=== PATIENT | female | born 1950 | race Caucasian/White ===

== ENCOUNTER 2018-04-28 12:17 | Inpatient (IN) | payer OTHER ==
--- NOTE | 2018-04-28 12:26 | PDOC ---
History of Present Illness - General Chief Complaint: Injury Stated Complaint: LEFT LEG INJURY Time Seen by Provider: 04/28/18 12:23 History Source: Patient Exam Limitations: No Limitations - History of Present Illness Initial Comments: 04/28/18 12:30 Ms Sullivan is a 68 yo F who presents to the ER with a complaint of fall with leg injury She has a h/o afib currently on coumadin, HTN She accidentally tripped over a wire in her daughters room She fell forward, landing on both knees (L more than Right) No head trauma No LOC Pt was able to get herself up but noted that her left leg was bruising despite applying ice The swelling was significant which prompted her ER visit No preceding chest pain, shortness of breath, palpitations, focal weakness or numbness PAST MEDICAL HISTORY: Hypertension, gout, Afib, h/o Hep C PAST SURGICAL HISTORY: C section FAMILY HISTORY: non contributory SOCIAL HISTORY: pt denies, alcohol, cigarette, and drug use MEDICATIONS: reviewed ALLERGIES: PCN ROS: GENERAL/CONSTITUTIONAL: No fever or chills. No weakness. HEAD, EYES, EARS, NOSE AND THROAT: No change in vision. No ear pain or discharge. No sore throat. CARDIOVASCULAR: No chest pain or shortness of breath. RESPIRATORY: No cough, wheezing, or hemoptysis. GASTROINTESTINAL: No nausea, vomiting, diarrhea or constipation. No rectal bleeding. GENITOURINARY: No dysuria, frequency, or change in urination. MUSCULOSKELETAL: No joint or muscle swelling or pain. No neck or back pain. SKIN: Yes: Left leg and knee Bruising NEUROLOGIC: No headache, vertigo, loss of consciousness, or loss of sensation. PSYCHIATRIC: No depression or anxiety. ENDOCRINE: No increased thirst. No abnormal weight change. HEMATOLOGIC/LYMPHATIC: No anemia, easy bleeding, or history of blood clots. ALLERGIC/IMMUNOLOGIC: No hives or skin allergy. No latex allergy. EXAM: GENERAL: The patient is awake, alert, and fully oriented, in no acute distress. HEAD: Normal with no signs of trauma. EYES: Pupils equal, round and reactive to light, extraocular movements intact, sclera anicteric, conjunctiva clear. ENT: Ears normal, nares patent, oropharynx clear without exudates. Moist mucous membranes. NECK: Normal range of motion, supple LUNGS: Breath sounds equal, clear to auscultation bilaterally. No wheezes, and no crackles. HEART: Regular rate and rhythm, normal S1 and S2 ABDOMEN: Soft, nontender, normoactive bowel sounds. No guarding, no rebound. No masses. EXTREMITIES: Normal range of motion, no edema. (+) bruising NEUROLOGICAL: Cranial nerves II through XII grossly intact. Normal speech, normal gait. PSYCH: Normal mood, normal affect. SKIN: Left lateral leg bruised and swollen, non tender area feels firm to palpation DP 2+ 04/28/18 12:46 04/28/18 14:05 Past History - Past Medical History Allergies/Adverse Reactions: Allergies Allergy/AdvReac Type Severity Reaction Status Date / Time Penicillins Allergy Verified 04/28/18 12:30 azithromycin AdvReac Intermediate Diarrhea Verified 04/28/18 12:30 Home Medications: Ambulatory Orders Calcium 250Mg/Vit-D 125 Units [Oscal 250 mg+D] 2 each PO DAILY 06/18/12 Allopurinol [Zyloprim -] 100 mg PO DAILY 04/28/18 Metoprolol Succinate [Toprol Xl] 100 mg PO HS 04/28/18 Rivaroxaban [Xarelto -] 20 mg PO DAILY 04/28/18 HTN: Yes - Suicide/Smoking/Psychosocial Hx Smoking Status: No Smoking History: Never smoked Number of Cigarettes Smoked Daily: 0 ED Treatment Course - LABORATORY CBC & Chemistry Diagram: 04/28/18 13:30 04/28/18 13:45 Medical Decision Making - Medical Decision Making 04/28/18 12:59 Pt presents with fall from standing No head trauma No preceding chest pain Left leg bruised and swollen Will do: Labs, xray CT head (Given xeralto) EKG Will call pt online banking specialist Will discuss with pt daughter as well Re Assess 04/28/18 14:05 EKG - Afib rate of 70 bpm, axis nml, inervals nml, no st elevation or depression , t waves upright 04/28/18 14:41 Laboratory Tests 04/28/18 04/28/18 04/28/18 13:30 13:45 13:45 WBC 8.1 Hgb 13.6 Hct 40.5 D Plt Count 213 INR 1.46 H Sodium 140 Potassium 4.7 Chloride 105 Carbon Dioxide 27 BUN 19 H Creatinine 1.2 Random Glucose 122 H Creatine Kinase 74 Troponin I 04/28/18 13:45 WBC Hgb Hct Plt Count INR Sodium Potassium Chloride Carbon Dioxide BUN Creatinine Random Glucose Creatine Kinase Troponin I < 0.03 04/28/18 17:[address] Chapin Call placed to Dr Kasper - will hold xeralto Will place on observation *DC/Admit/Observation/Transfer Diagnosis at time of Disposition: Hematoma - Discharge Dispostion Condition at time of disposition: Stable Decision to Admit order: Yes - Referrals Referrals: Radha Chapin MD [Primary Care Provider] - - Patient Instructions - Post Discharge Activity
[2018-04-28 14:06] LABS: BASO % 0.7 % (0-2.0); EOS % 0.7 % (0-4.5); HEMATOCRIT 40.5 % (32.4-45.2); HEMOGLOBIN 13.6 GM/dl (10.7-15.3); LYMPH % 10.5 % (8-40); MCH 31.9 pg (25.7-33.7); MCHC 33.6 g/dl (32.0-36.0); MEAN PLT VOLUME 7.3 fl (7.5-11.1); MONO % 8.5 % (3.8-10.2); NEUT % 79.6 % (42.8-82.8); PLATELET COUNT 213 K/MM3 (134-434); RBC 4.26 M/mm3 (3.60-5.2); RDW 13.6 % (11.6-15.6); WHITE BLOOD COUNT 8.1 K/mm3 (4.0-10.8)
[2018-04-28 14:24] LABS: INR 1.46 (0.82-1.09); PROTHROMBIN TIME (PATIENT) 16.2 SEC (10.2-13.0)
[2018-04-28 14:28] LABS: ALBUMIN 3.4 g/dl (3.4-5.0); ALK PHOS 66 U/L (45-117); ANION GAP 8 MMOL/L (8-16); BILIRUBIN,TOTAL 0.6 mg/dl (0.2-1); BLOOD UREA NITROGEN 19 mg/dl (7-18); CALCIUM 8.8 mg/dl (8.5-10); CHLORIDE 105 mmol/L (98-107); CO2 27 mmol/L (21-32); CREATININE 1.2 mg/dl (0.55-1.3); GLUCOSE,RANDOM 122 mg/dl (74-106); POTASSIUM 4.7 mmol/L (3.5-5.1); SGOT/AST 19 U/L (15-37); SGPT/ALT 13 U/L (13-61); SODIUM 140 mmol/L (136-145); TOT PROT 5.8 g/dl (6.4-8.2)
[2018-04-29] MEDS: amLODIPine BESYLATE 10 MG TABLET (FP) PO SCH (10:00)
[2018-04-29] MEDS: ALLOPURINOL 100 MG TABLET (FP) PO SCH (10:50)
[2018-04-29] MEDS: ACETAMINOPHEN 500 MG TABLET (FP) PO PRN (10:50)
[2018-04-29 17:14] LABS: INR 1.26 (0.82-1.09)
[2018-04-29 17:16] LABS: HEMATOCRIT 29.2 % (32.4-45.2); HEMOGLOBIN 9.9 GM/dl (10.7-15.3); MCH 32.1 pg (25.7-33.7); MEAN CELL VOLUME 94.4 fl (80-96); MEAN PLT VOLUME 7.6 fl (7.5-11.1); PLATELET COUNT 167 K/MM3 (134-434); RBC 3.09 M/mm3 (3.60-5.2); RDW 13.5 % (11.6-15.6); WHITE BLOOD COUNT 9.1 K/mm3 (4.0-10.8)
[2018-04-29 17:17] LABS: ALBUMIN 3.2 g/dl (3.4-5.0); ALK PHOS 64 U/L (45-117); ANION GAP 6 MMOL/L (8-16); BILIRUBIN,TOTAL 0.5 mg/dl (0.2-1); BLOOD UREA NITROGEN 16 mg/dl (7-18); CALCIUM 8.6 mg/dl (8.5-10); CHLORIDE 105 mmol/L (98-107); CO2 29 mmol/L (21-32); CREATININE 1.2 mg/dl (0.55-1.3); GLUCOSE,RANDOM 120 mg/dl (74-106); POTASSIUM 3.8 mmol/L (3.5-5.1); SGOT/AST 20 U/L (15-37); SGPT/ALT 12 U/L (13-61); SODIUM 140 mmol/L (136-145); TOT PROT 5.4 g/dl (6.4-8.2)
[2018-04-29] MEDS: CEFTRIAXONE 1 GM in DEXTROSE 5%-WATER - 50 ML IVPB SCH (21:55)
--- NOTE | 2018-04-29 22:01 | HP ---
Admitting History and Physical - Admission Chief Complaint: fall and hematoma of the left lower extremity while on Xarelto History of Present Illness: 68 yo obese female with PMH of Atrial Fibrillation, fell at home after getting entangled in a purse string. The patient fell on her knees and did not hit her head. History Source: Patient - Past Medical History Cardiovascular: Yes: AFIB, HTN ...LMP Comment: 68 YEARS OLD - Smoking History Smoking history: Never smoked Have you smoked in the past 12 months: No Aproximately how many cigarettes per day: 0 - Alcohol/Substance Use Hx Alcohol Use: No Home Medications - Allergies Allergies/Adverse Reactions: Allergies Allergy/AdvReac Type Severity Reaction Status Date / Time Penicillins Allergy Verified 04/28/18 12:30 azithromycin AdvReac Intermediate Diarrhea Verified 04/28/18 12:30 - Home Medications Home Medications: Ambulatory Orders Calcium 250Mg/Vit-D 125 Units [Oscal 250 mg+D] 2 each PO DAILY 06/18/12 Allopurinol [Zyloprim -] 100 mg PO DAILY 04/28/18 Metoprolol Succinate [Toprol Xl] 100 mg PO HS 04/28/18 Rivaroxaban [Xarelto -] 20 mg PO DAILY 04/28/18 Review of Systems - Review of Systems Constitutional: reports: No Symptoms Eyes: reports: No Symptoms HENT: reports: No Symptoms Neck: reports: No Symptoms Cardiovascular: reports: Edema (chronic edema of the lower etxremities) Respiratory: reports: No Symptoms Gastrointestinal: reports: No Symptoms Genitourinary: reports: No Symptoms Musculoskeletal: reports: Extremity Pain (pain of jeremías left knee and extensive hematoma of the left lower extremity) Physical Examination Vital Signs: Vital Signs Temperature 98.8 F 04/29/18 18:00 Pulse Rate 74 04/29/18 18:00 Respiratory Rate 17 04/29/18 18:00 Blood Pressure 99/54 L 04/29/18 18:00 O2 Sat by Pulse Oximetry (%) 95 04/29/18 18:00 Constitutional: Yes: No Distress, Calm Eyes: Yes: Conjunctiva Clear, EOM Intact HENT: Yes: Atraumatic, Normocephalic Neck: Yes: Supple, Trachea Midline Cardiovascular: Yes: Regular Rate and Rhythm Respiratory: Yes: Regular, CTA Bilaterally Gastrointestinal: Yes: Normal Bowel Sounds, Soft, Abdomen, Obese, Other (could not evaluate internal organs due to obesity) Extremities: Yes: Other (edema and hematoma of the left calf, blister of jeremías left calf present). No: Calf Tenderness Edema: Yes Peripheral Pulses WNL: Yes Neurological: Yes: Alert, Oriented Psychiatric: Yes: Alert, Oriented Labs: CBC, BMP 04/29/18 16:45 04/29/18 16:45 Imaging - Results X-ray: Other (tibia and fibula X ray with no fracture) Problem List - Problems (1) Fall on same level as cause of accidental injury Assessment/Plan: monitor for compartment syndrome, check CPK and CK MB serially keep left lower extremity elevated ice every 45 minutes for 10 minutes each time while awake Code(s): W18.30XA - FALL ON SAME LEVEL, UNSPECIFIED, INITIAL ENCOUNTER (2) Hematoma Assessment/Plan: extensive left lower extremity hematoma, will monitor for expansion and compartment syndrome development I will hold Xarelto while monitoring CBC Code(s): T14.8XXA - OTHER INJURY OF UNSPECIFIED BODY REGION, INITIAL ENCOUNTER (3) Atrial fibrillation Assessment/Plan: Toprol XL Xarelto on hold monior CBC for significant drop in hematocrit Code(s): I48.91 - UNSPECIFIED ATRIAL FIBRILLATION (4) HTN (hypertension) Assessment/Plan: Continue Toprol and Norvasc Code(s): I10 - ESSENTIAL (PRIMARY) HYPERTENSION
--- NOTE | 2018-04-29 22:04 | PN ---
Progress Note, Physician Chief Complaint: s/p fall and large hematoma of the left calf History of Present Illness: 68 yo female with PMH of Atrial Fibrillation on chronic anticoagulation,with Xarelto, fell in her house, after getting entangled in the strings of a purse. The patient did not hit her head and did not lose consciousness. During her fall she injured her left lower extremity developing an extensive hematoma which affected her left knees,left popliteal area, and left calf . In interim she developed celluilits of the left calf and a 10 cm/10 cm blister filled with serous fluid. Anticoagulation with Xarelto is on hold and the hematoma is stable and the edema of the lower extremity is subsiding. - Current Medication List Current Medications: Active Medications Acetaminophen (Tylenol -) 500 mg PO Q6H PRN PRN Reason: PAIN LEVEL 5-10 Last Admin: 04/29/18 10:50 Dose: 500 mg Allopurinol (Zyloprim -) 100 mg PO DAILY [facility] Last Admin: 04/29/18 10:50 Dose: 100 mg Amlodipine Besylate (Norvasc -) 10 mg PO DAILY [facility] Last Admin: 04/29/18 10:00 Dose: 10 mg Ceftriaxone Sodium 1 gm/ (Dextrose) 50 mls @ 100 mls/hr IVPB DAILY [facility] Last Admin: 04/29/18 21:55 Dose: 100 mls/hr Metoprolol Succinate (Toprol Xl -) 100 mg PO HS [facility] Last Admin: 04/29/18 21:54 Dose: 100 mg - Objective Vital Signs: Vital Signs Temperature 98.8 F 04/29/18 18:00 Pulse Rate 74 04/29/18 18:00 Respiratory Rate 17 04/29/18 18:00 Blood Pressure 99/54 L 04/29/18 18:00 O2 Sat by Pulse Oximetry (%) 95 04/29/18 18:00 Constitutional: Yes: No Distress, Calm Eyes: Yes: Conjunctiva Clear, EOM Intact HENT: Yes: Atraumatic, Normocephalic Neck: Yes: Supple, Trachea Midline Cardiovascular: Yes: Regular Rate and Rhythm, S1, S2 Gastrointestinal: Yes: Normal Bowel Sounds, Soft, Abdomen, Obese. No: Hepatomegaly, Splenomegaly Extremities: No: Calf Tenderness Edema: Yes Peripheral Pulses WNL: Yes Integumentary: Yes: Other (bullous lesion of jeremías left calf, filel with serous fluid) Neurological: Yes: Alert, Oriented Psychiatric: Yes: Alert, Oriented Labs: CBC, BMP 04/29/18 16:45 04/29/18 16:45 INR, PTT INR 1.26 (0.82-1.09) H 04/29/18 16:45 Problem List - Problems (1) Hematoma Assessment/Plan: Xarelto on hold serial CBC Code(s): T14.8XXA - OTHER INJURY OF UNSPECIFIED BODY REGION, INITIAL ENCOUNTER (2) Anemia Assessment/Plan: monitor CBC Code(s): D64.9 - ANEMIA, UNSPECIFIED Qualifiers: Other causes of anemia: acute posthemorrhagic (3) Fall on same level as cause of accidental injury Assessment/Plan: monitor for compartment syndrome keep left lower extremity elevated ice every 45 minutes for 10 minutes each time while awake Code(s): W18.30XA - FALL ON SAME LEVEL, UNSPECIFIED, INITIAL ENCOUNTER (4) Atrial fibrillation Assessment/Plan: Toprol XL Xarelto on hold, the patient has an extensive hematoma of the left lower extremity associated with a significant drop in hematocrit due to the extent of the hematoma, the ER md, myself and the [employer] buyer liaison, Dr. Petit, we all agreed to hold anticoagulation until bleeding is stable and no compartment syndrome develops continue monitoring the CBC Code(s): I48.91 - UNSPECIFIED ATRIAL FIBRILLATION (5) HTN (hypertension) Assessment/Plan: Continue Toprol and Norvasc Code(s): I10 - ESSENTIAL (PRIMARY) HYPERTENSION (6) Cellulitis of calf Assessment/Plan: start Ceftriaxone Code(s): L03.119 - CELLULITIS OF UNSPECIFIED PART OF LIMB (7) Anemia Assessment/Plan: there is a significant drop in the patient's H/H, with serious concerns for development of compartment syndrome in this massive lower extremity hematoma will monitor CBC, CPK and CKMB, and hold Xarelto for now Code(s): D64.9 - ANEMIA, UNSPECIFIED (8) Acute blood loss anemia Assessment/Plan: as above Code(s): D62 - ACUTE POSTHEMORRHAGIC ANEMIA
[2018-04-30 09:03] LABS: BASO % 0.4 % (0-2.0); EOS % 1.5 % (0-4.5); HEMOGLOBIN 11.3 GM/dl (10.7-15.3); LYMPH % 15.4 % (8-40); MCH 30.5 pg (25.7-33.7); MCHC 32.2 g/dl (32.0-36.0); MEAN CELL VOLUME 94.6 fl (80-96); MEAN PLT VOLUME 7.9 fl (7.5-11.1); MONO % 9.2 % (3.8-10.2); NEUT % 73.5 % (42.8-82.8); PLATELET COUNT 201 K/MM3 (134-434); RDW 13.5 % (11.6-15.6); WHITE BLOOD COUNT 10.5 K/mm3 (4.0-10.8)
[2018-04-30] MEDS ORDERED: PT OWN MED DRAWER 7, Y5N ONE (09:26)
[2018-04-30] MEDS: CEFTRIAXONE 1 GM in DEXTROSE 5%-WATER - 50 ML IVPB SCH (10:00)
[2018-04-30] MEDS: ALLOPURINOL 100 MG TABLET (FP) PO SCH (10:00)
[2018-04-30] MEDS: amLODIPine BESYLATE 10 MG TABLET (FP) PO SCH (10:00)
--- NOTE | 2018-04-30 11:57 | EKG ---
Test Reason : Blood Pressure : / mmHG Vent. Rate : 070 BPM Atrial Rate : 075 BPM P-R Int : 000 ms QRS Dur : 094 ms QT Int : 426 ms P-R-T Axes : 000 002 014 degrees QTc Int : 460 ms ATRIAL FIBRILLATION NONSPECIFIC ST ABNORMALITY ABNORMAL ECG NO PREVIOUS ECGS AVAILABLE Confirmed by ROXANNE PORRAS MD ([id number]) on 04/30/2018 11:57:14 AM Referred By: ALESSANDRO Confirmed By:ROXANNE PORRAS MD
[2018-04-30] MEDS: ACETAMINOPHEN 500 MG TABLET (FP) PO PRN (13:00)
--- NOTE | 2018-04-30 15:12 | PN ---
Progress Note, Physician Chief Complaint: s/p fall and hematoma of the left calf - Current Medication List Current Medications: Active Medications Acetaminophen (Tylenol -) 500 mg PO Q6H PRN PRN Reason: PAIN LEVEL 5-10 Last Admin: 04/29/18 10:50 Dose: 500 mg Allopurinol (Zyloprim -) 100 mg PO DAILY [facility] Last Admin: 04/30/18 10:00 Dose: 100 mg Amlodipine Besylate (Norvasc -) 10 mg PO DAILY [facility] Last Admin: 04/30/18 10:00 Dose: 10 mg Ceftriaxone Sodium 1 gm/ (Dextrose) 50 mls @ 100 mls/hr IVPB DAILY [facility] Last Admin: 04/30/18 10:00 Dose: 100 mls/hr Metoprolol Succinate (Toprol Xl -) 100 mg PO HS [facility] Last Admin: 04/29/18 21:54 Dose: 100 mg - Objective Vital Signs: Vital Signs Temperature 98.7 F 04/30/18 14:04 Pulse Rate 75 04/30/18 14:04 Respiratory Rate 18 04/30/18 14:04 Blood Pressure 110/66 04/30/18 14:04 O2 Sat by Pulse Oximetry (%) 96 04/30/18 14:04 Constitutional: Yes: No Distress, Calm Eyes: Yes: Conjunctiva Clear, EOM Intact HENT: Yes: Atraumatic, Normocephalic Neck: Yes: Supple, Trachea Midline Cardiovascular: Yes: Regular Rate and Rhythm Respiratory: Yes: Regular, CTA Bilaterally Gastrointestinal: Yes: Normal Bowel Sounds, Soft, Abdomen, Obese Musculoskeletal: Yes: Other (massive hematoma of the left lower extremity, calf and knee with limited mobility of the knee and pain) Labs: CBC, BMP 04/30/18 06:00 04/29/18 16:45 INR, PTT INR 1.26 (0.82-1.09) H 04/29/18 16:45 Problem List - Problems (1) Hematoma Code(s): T14.8XXA - OTHER INJURY OF UNSPECIFIED BODY REGION, INITIAL ENCOUNTER (2) Anemia Code(s): D64.9 - ANEMIA, UNSPECIFIED Qualifiers: Other causes of anemia: acute posthemorrhagic (3) Fall on same level as cause of accidental injury Code(s): W18.30XA - FALL ON SAME LEVEL, UNSPECIFIED, INITIAL ENCOUNTER (4) Atrial fibrillation Code(s): I48.91 - UNSPECIFIED ATRIAL FIBRILLATION (5) HTN (hypertension) Code(s): I10 - ESSENTIAL (PRIMARY) HYPERTENSION (6) Cellulitis of calf Code(s): L03.119 - CELLULITIS OF UNSPECIFIED PART OF LIMB (7) Anemia Code(s): D64.9 - ANEMIA, UNSPECIFIED (8) Anemia Code(s): D64.9 - ANEMIA, UNSPECIFIED (9) Acute blood loss anemia Code(s): D62 - ACUTE POSTHEMORRHAGIC ANEMIA
[2018-05-01 08:42] LABS: BASO % 0.3 % (0-2.0); EOS % 1.3 % (0-4.5); HEMATOCRIT 34.7 % (32.4-45.2); HEMOGLOBIN 11.4 GM/dl (10.7-15.3); LYMPH % 12.2 % (8-40); MCH 31.3 pg (25.7-33.7); MCHC 32.9 g/dl (32.0-36.0); MEAN CELL VOLUME 95.1 fl (80-96); MEAN PLT VOLUME 7.8 fl (7.5-11.1); MONO % 7.1 % (3.8-10.2); NEUT % 79.1 % (42.8-82.8); PLATELET COUNT 198 K/MM3 (134-434); RBC 3.65 M/mm3 (3.60-5.2); RDW 13.4 % (11.6-15.6); WHITE BLOOD COUNT 11.7 K/mm3 (4.0-10.8)
[2018-05-01 08:54] LABS: ALBUMIN 3.1 g/dl (3.4-5.0); ALK PHOS 58 U/L (45-117); ANION GAP 9 MMOL/L (8-16); BILIRUBIN,TOTAL 0.7 mg/dl (0.2-1); BLOOD UREA NITROGEN 18 mg/dl (7-18); CALCIUM 8.5 mg/dl (8.5-10); CHLORIDE 104 mmol/L (98-107); CO2 27 mmol/L (21-32); CREATININE 1.1 mg/dl (0.55-1.3); GLUCOSE,RANDOM 96 mg/dl (74-106); POTASSIUM 3.9 mmol/L (3.5-5.1); SGOT/AST 16 U/L (15-37); SGPT/ALT 12 U/L (13-61); SODIUM 140 mmol/L (136-145); TOT PROT 5.3 g/dl (6.4-8.2)
[2018-05-01] MEDS: CEFTRIAXONE 1 G/50 ML PREMIX 50 ML IVPB SCH (09:24)
[2018-05-01] MEDS: amLODIPine BESYLATE 10 MG TABLET (FP) PO SCH (09:24)
[2018-05-01] MEDS: ALLOPURINOL 100 MG TABLET (FP) PO SCH (09:24)
[2018-05-01] MEDS ORDERED: RIVAROXABAN 20 MG TABLET PO SCH (18:00)
--- NOTE | 2018-05-01 23:57 | PN ---
Progress Note, Physician Chief Complaint: s/p fall and hematoma of the left calf History of Present Illness: 68 yo female with PMH of Atrial Fibrillation on chronic anticoagulation,with Xarelto, fell in her house, after getting entangled in the strings of a purse. The patient did not hit her head and did not lose consciousness. During her fall she injured her left lower extremity developing an extensive hematoma which affected her left knees,left popliteal area, and left calf . In interim she developed celluilits of the left calf and a 10 cm/10 cm blister filled with serous fluid. The blister was drained yesterday by me and 20 cc of serous fluid were obtained and sent for cultures. The patient receives Ceftriaxone for the treatment of her cellulitis. Anticoagulation with Xarelto was restarted since the hematoma is stable and not expanding and the edema of the lower extremity is subsiding. - Current Medication List Current Medications: Active Medications Acetaminophen (Tylenol -) 500 mg PO Q6H PRN PRN Reason: PAIN LEVEL 5-10 Last Admin: 04/30/18 13:00 Dose: 500 mg Allopurinol (Zyloprim -) 100 mg PO DAILY [facility] Last Admin: 05/01/18 09:24 Dose: 100 mg Amlodipine Besylate (Norvasc -) 10 mg PO DAILY [facility] Last Admin: 05/01/18 09:24 Dose: 10 mg Ceftriaxone Sodium (Ceftriaxone 1 Gm-D5w Bag) 50 mls @ 100 mls/hr IVPB DAILY [facility] Last Admin: 05/01/18 09:24 Dose: 100 mls/hr Metoprolol Succinate (Toprol Xl -) 100 mg PO HS [facility] Last Admin: 05/01/18 21:21 Dose: 100 mg Rivaroxaban (Xarelto -) 20 mg PO DAILY@1800 [facility] Last Admin: 05/01/18 17:29 Dose: 20 mg - Objective Vital Signs: Vital Signs Temperature 98.5 F 05/01/18 22:38 Pulse Rate 83 05/01/18 22:38 Respiratory Rate 18 05/01/18 22:38 Blood Pressure 115/55 L 05/01/18 22:38 O2 Sat by Pulse Oximetry (%) 97 05/01/18 22:38 Constitutional: Yes: No Distress, Calm Eyes: Yes: Conjunctiva Clear, EOM Intact HENT: Yes: Atraumatic, Normocephalic Neck: Yes: Supple, Trachea Midline Cardiovascular: Yes: Regular Rate and Rhythm Respiratory: Yes: Regular, CTA Bilaterally Gastrointestinal: Yes: Normal Bowel Sounds, Soft, Abdomen, Obese. No: Hepatomegaly, Splenomegaly ...Rectal Exam: Yes: Deferred Musculoskeletal: Yes: Joint Stiffness (in the left knee due to hematoma.) Extremities: No: Calf Tenderness Edema: Yes Edema: LLE: 2+, RLE: 1+ Peripheral Pulses WNL: Yes Integumentary: Yes: Rash (redness extension of the left anterior hernandez is unchanged), Skin Tear (open wound of the left anterior hernandez present, not examined toda, jeremías wound is covered by Xeroform) Neurological: Yes: Alert, Oriented Psychiatric: Yes: Alert, Oriented Labs: CBC, BMP 05/01/18 07:10 05/01/18 07:10 INR, PTT INR 1.26 (0.82-1.09) H 04/29/18 16:45 Problem List - Problems (1) Hematoma Assessment/Plan: extensive left lower extremity hematoma, was monitored for expansion and compartment syndrome development the hematoma is stable and I will restart Xarelto while monitoring CBC Code(s): T14.8XXA - OTHER INJURY OF UNSPECIFIED BODY REGION, INITIAL ENCOUNTER (2) Cellulitis of calf Assessment/Plan: on Ceftriaxone and no improving the antibiotic choices are limited due to PCN allergy Code(s): L03.119 - CELLULITIS OF UNSPECIFIED PART OF LIMB (3) Open wound of left lower leg Assessment/Plan: the patient developed a 10cm/10 cm of the left calf which was drained fluid was sent for culture and analysis wound care: clean with NS, cover with Xeroform QOD Code(s): S81.802A - UNSPECIFIED OPEN WOUND, LEFT LOWER LEG, INITIAL ENCOUNTER (4) Fall on same level as cause of accidental injury Assessment/Plan: monitor for compartment syndrome keep left lower extremity elevated ice every 45 minutes for 10 minutes each time while awake Code(s): W18.30XA - FALL ON SAME LEVEL, UNSPECIFIED, INITIAL ENCOUNTER (5) Atrial fibrillation Assessment/Plan: Toprol XL restart Xarelto the extensive hematoma of the left lower extremity seems to be stable despite the significant drop in hematocrit I will continue monitoring the CBC Code(s): I48.91 - UNSPECIFIED ATRIAL FIBRILLATION (6) Acute blood loss anemia Code(s): D62 - ACUTE POSTHEMORRHAGIC ANEMIA (7) HTN (hypertension) Assessment/Plan: Continue Toprol and Norvasc Code(s): I10 - ESSENTIAL (PRIMARY) HYPERTENSION Assessment/Plan 68 yo obese female with limited mobility, s/p fall and massive hematoma of the left of lower extremity while on anticoagulation. The patient was admitted to monitor for compartment syndrome development. Her hematoma and CBC are stable now but she developed a 10/10cm open wound of the left calf associated with cellulitis. IV Ceftriaxone was started with no improvement.
[2018-05-02 08:20] LABS: BASO % 1.6 % (0-2.0); EOS % 1.6 % (0-4.5); HEMATOCRIT 33.4 % (32.4-45.2); LYMPH % 16.1 % (8-40); MCH 31.5 pg (25.7-33.7); MCHC 33.1 g/dl (32.0-36.0); MEAN CELL VOLUME 95.2 fl (80-96); MEAN PLT VOLUME 7.3 fl (7.5-11.1); MONO % 10.5 % (3.8-10.2); NEUT % 70.2 % (42.8-82.8); PLATELET COUNT 215 K/MM3 (134-434); RBC 3.51 M/mm3 (3.60-5.2); RDW 13.5 % (11.6-15.6); WHITE BLOOD COUNT 12.3 K/mm3 (4.0-10.8)
[2018-05-02] MEDS: CEFTRIAXONE 1 G/50 ML PREMIX 50 ML IVPB SCH (09:25)
[2018-05-02] MEDS: ALLOPURINOL 100 MG TABLET (FP) PO SCH (09:31)
[2018-05-02] MEDS: amLODIPine BESYLATE 10 MG TABLET (FP) PO SCH (09:32)
--- NOTE | 2018-05-02 10:13 | PN ---
Progress Note (short form) - Note Progress Note: ID CONSULT DICTATED CELLULITIS L LE HEMATOMA L LE S/P FALL PCN ALLERGY ADD VANCOMYCIN ELEVATION/ ANALGESICS
--- NOTE | 2018-05-02 11:24 | CONS ---
DATE OF CONSULTATION: DATE OF DICTATION: 05/02/2018 The patient is a 68-year-old female evaluated for cellulitis of the left lower extremity. She had fallen at home, sustaining trauma to her knees bilaterally. She was noted to have extensive ecchymosis of the left lower extremity as well as anemia. She presented to the emergency room on April 28, 2018, where she was evaluated. She was admitted to the hospital for hematoma and cellulitis of the left lower extremity, possible compartment syndrome. X-rays were performed and were negative for fracture or dislocation. She was empirically treated with ceftriaxone. Despite the antibiotic therapy, she had persistent erythema of the left lower extremity. Patient has a history of a penicillin allergy. She reports having an allergy in childhood, the nature of which she was uncertain of. An aspiration was performed of the left lower extremity and fluid sent for culture. PAST MEDICAL HISTORY: Positive for atrial fibrillation, hypertension, gouty arthritis, history of hepatitis C. PAST SURGICAL HISTORY: Status post cesarian section. ALLERGIES: PENICILLIN and AZITHROMYCIN. SOCIAL HISTORY: Patient lives at home in the community. She is a nonsmoker, nondrinker. REVIEW OF SYSTEMS: Neurologic: No loss of consciousness, seizure activity, focal weakness. Cardiac: Negative chest pain or palpitations. Respiratory: Negative cough or sputum production. Gastrointestinal: Negative vomiting or diarrhea. Genitourinary: Negative for urinary tract infection. LABORATORY DATA: White count 12.3, hematocrit 33.4, platelet count 215. Creatinine 1.1, INR 1.26. Wound culture negative. PHYSICAL EXAMINATION: General: She is awake and alert. She is not acutely toxic appearing, morbidly obese. Vital Signs: Temperature 98.6, blood pressure 125/61, pulse 72, regular. Respirations 18 per minute. HEENT: Sclerae are anicteric. Cardiovascular: Heart sounds S1, S2. Lungs: Clear. Abdomen: Obese, soft, nontender. Extremities: There is swelling of the left lower extremity from below the knee to the foot. There is a large area of ecchymosis present in the pretibial area extending to the calf area and distal posterior thigh. There is an area of erythema over the pretibial area approximately 8 x 20 cm. It is warm to touch. There is no fluctuance or crepitus. No lymphangitic streaking. IMPRESSION: 1. Cellulitis, left lower extremity. 2. Hematoma, left lower extremity, secondary to fall. 3. Penicillin allergy. Await culture results. Continue ceftriaxone. Will add vancomycin 1250 mg IV piggyback every 12 hours. Elevation, analgesics. Will follow. Thank you for the kind referral. RADHA ANDUJAR M.D. ALEE/[id number]
[2018-05-02] MEDS ORDERED: PT OWN MED DRAWER 7, Y5N ONE ×2 (11:48→22:07)
[2018-05-02] MEDS: VANCOMYCIN 1,250 MG in DEXTROSE 5%-WATER - 250 ML IVPB SCH ×2 (12:00→22:23)
--- NOTE | 2018-05-02 16:20 | PN ---
Progress Note, Physician Chief Complaint: s/p fall and hematoma of the left calf, increased redness , and increased volume of the hematoma, suspect hematoma liquification History of Present Illness: 68 yo female with PMH of Atrial Fibrillation on chronic anticoagulation,with Xarelto, fell in her house, after getting entangled in the strings of a purse. The patient did not hit her head and did not lose consciousness. During her fall she injured her left lower extremity developing an extensive hematoma which affected her left knees,left popliteal area, and left calf . In interim she developed celluilits of the left calf and a 10 cm/10 cm blister filled with serous fluid. Xarelto was srted yesterday but today the hematoma seems to have enlarged in size - Current Medication List Current Medications: Active Medications Acetaminophen (Tylenol -) 500 mg PO Q6H PRN PRN Reason: PAIN LEVEL 5-10 Last Admin: 04/30/18 13:00 Dose: 500 mg Allopurinol (Zyloprim -) 100 mg PO DAILY [facility] Last Admin: 05/02/18 09:31 Dose: 100 mg Amlodipine Besylate (Norvasc -) 10 mg PO DAILY [facility] Last Admin: 05/02/18 09:32 Dose: 10 mg Ceftriaxone Sodium (Ceftriaxone 1 Gm-D5w Bag) 50 mls @ 100 mls/hr IVPB DAILY [facility] Last Admin: 05/02/18 09:25 Dose: 100 mls/hr Vancomycin HCl 1,250 mg/ (Dextrose) 250 mls @ 166.667 mls/hr IVPB Q12H [facility]; Protocol Last Admin: 05/02/18 12:00 Dose: 166.667 mls/hr Metoprolol Succinate (Toprol Xl -) 100 mg PO HS [facility] Last Admin: 05/01/18 21:21 Dose: 100 mg Rivaroxaban (Xarelto -) 20 mg PO DAILY@1800 [facility] Last Admin: 05/01/18 17:29 Dose: 20 mg - Objective Vital Signs: Vital Signs Temperature 98.7 F 05/02/18 14:34 Pulse Rate 82 05/02/18 14:34 Respiratory Rate 18 05/02/18 14:34 Blood Pressure 109/66 05/02/18 14:34 O2 Sat by Pulse Oximetry (%) 98 05/02/18 14:34 Constitutional: Yes: No Distress, Calm Eyes: Yes: Conjunctiva Clear, EOM Intact HENT: Yes: Atraumatic, Normocephalic Neck: Yes: Supple, Trachea Midline Cardiovascular: Yes: Regular Rate and Rhythm Respiratory: Yes: Regular, CTA Bilaterally Gastrointestinal: Yes: Normal Bowel Sounds, Soft, Abdomen, Obese Extremities: Yes: Erythema (of the left calf anterior aspect,). No: Calf Tenderness Edema: Yes Edema: LLE: 2+ Peripheral Pulses WNL: Yes Integumentary: Yes: Rash (osf the left anterior hernandez) Neurological: Yes: Alert, Oriented Psychiatric: Yes: Alert, Oriented Labs: CBC, BMP 05/02/18 08:07 05/01/18 07:10 INR, PTT INR 1.26 (0.82-1.09) H 04/29/18 16:45 - ....Imaging Ultrasound: Other (of the left lower extremity was requested by me:My reading: fluids filled locular image in the calf , loculated hematoma) Problem List - Problems (1) Hematoma Assessment/Plan: Xarelto stopped again today, concerns for reactivation of bleeding serial CBC Code(s): T14.8XXA - OTHER INJURY OF UNSPECIFIED BODY REGION, INITIAL ENCOUNTER (2) Fall on same level as cause of accidental injury Assessment/Plan: monitor for compartment syndrome keep left lower extremity elevated ice every 45 minutes for 10 minutes each time while awake Code(s): W18.30XA - FALL ON SAME LEVEL, UNSPECIFIED, INITIAL ENCOUNTER (3) Atrial fibrillation Assessment/Plan: Toprol XL Xareltowas started yeaster and now placed on hold again, the patient has an extensive hematoma of the left lower extremity consult Cardiology on AC with Xarelto and risks evaluation Code(s): I48.91 - UNSPECIFIED ATRIAL FIBRILLATION (4) HTN (hypertension) Assessment/Plan: Continue Toprol and Norvasc Code(s): I10 - ESSENTIAL (PRIMARY) HYPERTENSION (5) Cellulitis of calf Assessment/Plan: Vancomycin Code(s): L03.119 - CELLULITIS OF UNSPECIFIED PART OF LIMB (6) Acute blood loss anemia Assessment/Plan: as above Code(s): D62 - ACUTE POSTHEMORRHAGIC ANEMIA
--- NOTE | 2018-05-02 18:33 | CON.CARD ---
Consult Consult Specialty:: cardio - History of Present Illness Chief Complaint: s/p fall History of Present Illness: 68 F here s/p mechanical fall (tripped). sustained hematoma to leg with superimposed cellulitis--being treated by ID. has had no falls or near-falls/loss of balance otherwise. denies cp, sob, palpit PMH: obesity afib HTN - Past Medical History Cardio/Vascular: Yes: AFIB, HTN ...LMP Comment: 68 YEARS OLD - Alcohol/Substance Use Hx Alcohol Use: No - Smoking History Smoking history: Never smoked Have you smoked in the past 12 months: No Aproximately how many cigarettes per day: 0 Home Medications - Allergies Allergies/Adverse Reactions: Allergies Allergy/AdvReac Type Severity Reaction Status Date / Time Penicillins Allergy Verified 04/28/18 12:30 azithromycin AdvReac Intermediate Diarrhea Verified 04/28/18 12:30 - Home Medications Home Medications: Ambulatory Orders Calcium 250Mg/Vit-D 125 Units [Oscal 250 mg+D] 2 each PO DAILY 06/18/12 Allopurinol [Zyloprim -] 100 mg PO DAILY 04/28/18 Metoprolol Succinate [Toprol Xl] 100 mg PO HS 04/28/18 Rivaroxaban [Xarelto -] 20 mg PO DAILY 04/28/18 Family Disease History - Family Disease History Family History: Denies (no known cmp) Review of Systems - Review of Systems Constitutional: denies: Chills, Fever Eyes: denies: Eye Pain HENT: denies: Nasal Congestion Neck: denies: Stiffness Cardiovascular: denies: Palpitations Respiratory: denies: Orthopnea, PND Gastrointestinal: denies: Diarrhea, Rectal Bleeding Genitourinary: denies: Burning, Hematuria Musculoskeletal: denies: Muscle Pain Integumentary: denies: Rash Neurological: denies: Numbness, Seizure, Syncope Endocrine: denies: Excessive Sweating Hematology/Lymphatic: denies: Excessive Bleeding Vital Signs: Vital Signs Temperature 98.7 F 05/02/18 14:34 Pulse Rate 82 05/02/18 14:34 Respiratory Rate 18 05/02/18 14:34 Blood Pressure 109/66 05/02/18 14:34 O2 Sat by Pulse Oximetry (%) 98 05/02/18 14:34 Constitutional: Yes: No Distress, Obese Eyes: No: Sclera Icterus HENT: No: Nasal Congestion Neck: No: Decreased ROM Respiratory: Yes: CTA Bilaterally. No: Accessory Muscle Use, Rales, Wheezes Gastrointestinal: Yes: Normal Bowel Sounds. No: Distention, Hepatomegaly, Palpable Mass, Tenderness Cardiovascular: Yes: Pulse Irregular JVD: No Carotid Bruit: No PMI: Non-Displaced Heart Sounds: Yes: S1, S2. No: Gallop Murmur: No: Systolic Murmur, Diastolic Murmur Musculoskeletal: Yes: Other (No kyphosis) Extremities: No: Cool, Cyanosis Edema: Yes Peripheral Pulses: 2+ Left Carotid, 2+ Right Carotid, 2+ Left Doralis Pedis, 2+ Right Dorsalis Pedis Integumentary: No: Jaundice Neurological: Yes: Alert, Oriented (x3) Psychiatric: No: Agitated - Other Data Labs, Other Data: CBC, BMP 05/02/18 08:07 05/01/18 07:10 INR, PTT INR 1.26 (0.82-1.09) H 04/29/18 16:45 Laboratory Tests 04/28/18 04/29/18 04/29/18 13:45 16:45 16:45 WBC Hgb Plt Count INR 1.26 H Sodium Potassium Carbon Dioxide BUN Creatinine AST ALT Troponin I < 0.03 < 0.03 05/01/18 05/02/18 07:10 08:07 WBC 12.3 H Hgb 11.0 Plt Count 215 INR Sodium 140 Potassium 3.9 Carbon Dioxide 27 BUN 18 Creatinine 1.1 AST 16 ALT 12 L Troponin I Assessment/Plan ECG (04/28): afib, normal axis and intervals, NSTWAs persistent Afib: -HR well controlled, continue metoprolol -CHADS VASC 3. on Xarelto 20 qd (note: est GFR on lab report of 44 is based on standardized to normal BSA. using modified CKD-EPI estimated creat clearance with pt's actual BSA, her est clearance is 59 hence this is correct dose) -given concern over hematoma of leg, this may prevent brisk healing of superficial infectious process and/or cause permanent venous insufficiency. rec hold Xarelto for 3-7 days to allow healing of traumatic hematoma of leg HTN: -well controlled -cont home metoprolol, amlodipine cellulitis: -per ID
[2018-05-03 07:59] LABS: BASO % 0.7 % (0-2.0); EOS % 2.3 % (0-4.5); HEMATOCRIT 33.8 % (32.4-45.2); HEMOGLOBIN 11.1 GM/dl (10.7-15.3); LYMPH % 11.6 % (8-40); MCH 31.4 pg (25.7-33.7); MEAN CELL VOLUME 95.3 fl (80-96); MEAN PLT VOLUME 7.6 fl (7.5-11.1); MONO % 10.6 % (3.8-10.2); NEUT % 74.8 % (42.8-82.8); PLATELET COUNT 221 K/MM3 (134-434); RBC 3.55 M/mm3 (3.60-5.2); RDW 13.7 % (11.6-15.6); WHITE BLOOD COUNT 12.1 K/mm3 (4.0-10.8)
[2018-05-03 08:13] LABS: ALBUMIN 2.8 g/dl (3.4-5.0); ALK PHOS 55 U/L (45-117); ANION GAP 8 MMOL/L (8-16); BILIRUBIN,TOTAL 0.9 mg/dl (0.2-1); BLOOD UREA NITROGEN 23 mg/dl (7-18); CALCIUM 8.3 mg/dl (8.5-10); CHLORIDE 105 mmol/L (98-107); CO2 27 mmol/L (21-32); CREATININE 1.2 mg/dl (0.55-1.3); GLUCOSE,RANDOM 107 mg/dl (74-106); POTASSIUM 4.2 mmol/L (3.5-5.1); SGOT/AST 15 U/L (15-37); SGPT/ALT 11 U/L (13-61); SODIUM 140 mmol/L (136-145); TOT PROT 5.1 g/dl (6.4-8.2)
--- NOTE | 2018-05-03 08:41 | PN ---
Progress Note, Physician Chief Complaint: no fever, no pain in the left calf s/p fall and hematoma of the left calf, increased redness , and increased volume of the hematoma, suspect hematoma liquification poor vein access and consequently inability to administer VAncomycin optimally History of Present Illness: 68 yo female with PMH of Atrial Fibrillation on chronic anticoagulation,with Xarelto, fell in her house, after getting entangled in the strings of a purse. The patient did not hit her head and did not lose consciousness. During her fall she injured her left lower extremity developing an extensive hematoma which affected her left knees,left popliteal area, and left calf . In interim she developed celluilits of the left calf and a 10 cm/10 cm blister filled with serous fluid. A soft tissue ultrasound was performed showing loculated hematomea with pockets of blood, approximately 3 cm - Current Medication List Current Medications: Active Medications Acetaminophen (Tylenol -) 500 mg PO Q6H PRN PRN Reason: PAIN LEVEL 5-10 Last Admin: 04/30/18 13:00 Dose: 500 mg Allopurinol (Zyloprim -) 100 mg PO DAILY [facility] [place] Last Admin: 05/02/18 09:31 Dose: 100 mg Amlodipine Besylate (Norvasc -) 10 mg PO DAILY [facility] [place] Last Admin: 05/02/18 09:32 Dose: 10 mg Ceftriaxone Sodium (Ceftriaxone 1 Gm-D5w Bag) 50 mls @ 100 mls/hr IVPB DAILY [facility] [place] Last Admin: 05/02/18 09:25 Dose: 100 mls/hr Vancomycin HCl 1,250 mg/ (Dextrose) 250 mls @ 166.667 mls/hr IVPB Q12H [facility] [place]; Protocol Last Admin: 05/02/18 22:23 Dose: 166.667 mls/hr Metoprolol Succinate (Toprol Xl -) 100 mg PO HS [facility] [place] Last Admin: 05/02/18 21:25 Dose: 100 mg - Objective Vital Signs: Vital Signs Temperature 98.1 F 05/03/18 06:43 Pulse Rate 71 05/03/18 06:43 Respiratory Rate 18 05/03/18 06:43 Blood Pressure 115/66 05/03/18 06:43 O2 Sat by Pulse Oximetry (%) 95 05/03/18 08:11 Constitutional: Yes: No Distress, Calm Eyes: Yes: Conjunctiva Clear, EOM Intact HENT: Yes: Atraumatic, Normocephalic Neck: Yes: Supple, Trachea Midline Cardiovascular: Yes: Regular Rate and Rhythm Respiratory: Yes: Regular, CTA Bilaterally Gastrointestinal: Yes: Normal Bowel Sounds, Soft, Abdomen, Obese Extremities: No: Calf Tenderness Edema: LLE: 2+, RLE: 1+ Peripheral Pulses WNL: Yes Integumentary: Yes: Other (large hematoma of the mid and upper third of the left thigh, tensed fluctuance of the lateral aspect, cellulitic infiltration and bright redness anteriorly ( 30 cm / 12 cm, this area was marked by me with marker) but looks less red then yesterday,thin layer of epithellium covering the drained blister area (15/7 cm) with 3 cc serous drainage collected in the declive area) Neurological: Yes: Alert, Oriented Psychiatric: Yes: Alert, Oriented Labs: CBC, BMP 05/03/18 07:20 05/03/18 07:20 INR, PTT INR 1.26 (0.82-1.09) H 04/29/18 16:45 - ....Imaging Ultrasound: Other (loculated hematoma of the left calf) Problem List - Problems (1) Leukocytosis Assessment/Plan: on VAncomycin, there is no fever, continue monitoring, blood cultures if fever Code(s): D72.829 - ELEVATED WHITE BLOOD CELL COUNT, UNSPECIFIED (2) Hematoma Assessment/Plan: Xarelto stopped again, concerns for reactivation of bleeding serial CBC stable Code(s): T14.8XXA - OTHER INJURY OF UNSPECIFIED BODY REGION, INITIAL ENCOUNTER (3) Fall on same level as cause of accidental injury Assessment/Plan: monitor for compartment syndrome keep left lower extremity elevated ice every 45 minutes for 10 minutes each time while awake Code(s): W18.30XA - FALL ON SAME LEVEL, UNSPECIFIED, INITIAL ENCOUNTER (4) Atrial fibrillation Assessment/Plan: Toprol XL Xarelto was started yesterday and now placed on hold again, the patient has an extensive hematoma of the left lower extremity consult Cardiology on AC with Xarelto and risks evaluation Code(s): I48.91 - UNSPECIFIED ATRIAL FIBRILLATION (5) HTN (hypertension) Assessment/Plan: Continue Toprol and Norvasc Code(s): I10 - ESSENTIAL (PRIMARY) HYPERTENSION (6) Cellulitis of calf Assessment/Plan: Vancomycin iv the patient has poor iv access and the insertion of a PICC line is recommended to insure proper administration of iv antibiotics contacted IR Code(s): L03.119 - CELLULITIS OF UNSPECIFIED PART OF LIMB (7) Acute blood loss anemia Assessment/Plan: as above Code(s): D62 - ACUTE POSTHEMORRHAGIC ANEMIA
--- NOTE | 2018-05-03 09:20 | PN ---
Progress Note, Physician History of Present Illness: NO C/O LEG PAIN AT REST NO FEVER/ CHILLS TOLERATING ANTIBIOTICS - Current Medication List Current Medications: Active Medications Acetaminophen (Tylenol -) 500 mg PO Q6H PRN PRN Reason: PAIN LEVEL 5-10 Last Admin: 04/30/18 13:00 Dose: 500 mg Allopurinol (Zyloprim -) 100 mg PO DAILY [facility] Last Admin: 05/02/18 09:31 Dose: 100 mg Amlodipine Besylate (Norvasc -) 10 mg PO DAILY [facility] Last Admin: 05/02/18 09:32 Dose: 10 mg Ceftriaxone Sodium (Ceftriaxone 1 Gm-D5w Bag) 50 mls @ 100 mls/hr IVPB DAILY [facility] Last Admin: 05/02/18 09:25 Dose: 100 mls/hr Vancomycin HCl 1,250 mg/ (Dextrose) 250 mls @ 166.667 mls/hr IVPB Q12H [facility]; Protocol Last Admin: 05/02/18 22:23 Dose: 166.667 mls/hr Metoprolol Succinate (Toprol Xl -) 100 mg PO HS [facility] Last Admin: 05/02/18 21:25 Dose: 100 mg - Objective Vital Signs: Vital Signs Temperature 98.1 F 05/03/18 06:43 Pulse Rate 71 05/03/18 06:43 Respiratory Rate 18 05/03/18 06:43 Blood Pressure 115/66 05/03/18 06:43 O2 Sat by Pulse Oximetry (%) 95 05/03/18 08:11 Constitutional: Yes: No Distress, Obese Cardiovascular: Yes: Regular Rate and Rhythm, S1, S2 Respiratory: Yes: CTA Bilaterally Gastrointestinal: Yes: Normal Bowel Sounds, Soft. No: Tenderness Extremities: Yes: Other (RECEDING ERYTHEMA L PRETIBIAL AREA; EXTENSIVE ECCHYMOSIS) Labs: CBC, BMP 05/03/18 07:20 05/03/18 07:20 INR, PTT INR 1.26 (0.82-1.09) H 04/29/18 16:45 Assessment/Plan CELLULITIS L LE ECCHYMOSIS/ HEMATOMA PCN ALLERGY CONTINUE CEFTRIAXONE/ VANCOMYCIN ELEVATION
--- NOTE | 2018-05-03 09:38 | PN ---
Progress Note (short form) - Note Progress Note: s: no chest pain, palps, dizziness, dyspnea. Current Medications Acetaminophen (Tylenol -) 500 mg PO Q6H PRN PRN Reason: PAIN LEVEL 5-10 Last Admin: 04/30/18 13:00 Dose: 500 mg Allopurinol (Zyloprim -) 100 mg PO DAILY [facility] Last Admin: 05/02/18 09:31 Dose: 100 mg Amlodipine Besylate (Norvasc -) 10 mg PO DAILY [facility] Last Admin: 05/02/18 09:32 Dose: 10 mg Ceftriaxone Sodium (Ceftriaxone 1 Gm-D5w Bag) 50 mls @ 100 mls/hr IVPB DAILY [facility] Last Admin: 05/02/18 09:25 Dose: 100 mls/hr Vancomycin HCl 1,250 mg/ (Dextrose) 250 mls @ 166.667 mls/hr IVPB Q12H [facility]; Protocol Last Admin: 05/02/18 22:23 Dose: 166.667 mls/hr Metoprolol Succinate (Toprol Xl -) 100 mg PO HS [facility] Last Admin: 05/02/18 21:25 Dose: 100 mg Vital Signs: Vital Signs Period Temp Pulse Resp BP Sys/Oakes Pulse Ox Last 24 Hr 98.1 F-99 F 71-84 18-18 109-115/60-66 95-98 Constitutional: Yes: No Distress, Obese Eyes: No: Sclera Icterus HENT: No: Nasal Congestion Neck: No: Decreased ROM Respiratory: Yes: CTA Bilaterally. No: Accessory Muscle Use, Rales, Wheezes Gastrointestinal: Yes: Normal Bowel Sounds. No: Distention, Hepatomegaly, Palpable Mass, Tenderness Cardiovascular: Yes: Pulse Irregular JVD: No Carotid Bruit: No PMI: Non-Displaced Heart Sounds: Yes: S1, S2. No: Gallop Murmur: No: Systolic Murmur, Diastolic Murmur Musculoskeletal: Yes: Other (No kyphosis) Extremities: No: Cool, Cyanosis Edema: Yes Peripheral Pulses: 2+ Left Carotid, 2+ Right Carotid, 2+ Left Doralis Pedis, 2+ Right Dorsalis Pedis Integumentary: No: Jaundice Neurological: Yes: Alert, Oriented (x3) Psychiatric: No: Agitated Assessment/Plan ECG (04/28): afib, normal axis and intervals, NSTWAs persistent Afib: -HR well controlled, continue metoprolol -CHADS VASC 3. on Xarelto 20 qd (note: est GFR on lab report of 44 is based on standardized to normal BSA. using modified CKD-EPI estimated creat clearance with pt's actual BSA, her est clearance is 59 hence this is correct dose) -given concern over hematoma of leg, this may prevent brisk healing of superficial infectious process and/or cause permanent venous insufficiency. cont holding Xarelto for 3-7 days to allow healing of traumatic hematoma of leg HTN: -well controlled -cont home metoprolol, amlodipine cellulitis: -per ID
[2018-05-03] MEDS: amLODIPine BESYLATE 10 MG TABLET (FP) PO SCH (10:08)
[2018-05-03] MEDS: CEFTRIAXONE 1 G/50 ML PREMIX 50 ML IVPB SCH (10:08)
[2018-05-03] MEDS: ALLOPURINOL 100 MG TABLET (FP) PO SCH (10:08)
[2018-05-03] MEDS: VANCOMYCIN 1,250 MG in DEXTROSE 5%-WATER - 250 ML IVPB SCH ×2 (10:08→23:00)
[2018-05-03 17:10] VITALS: BMI 53.1
[2018-05-04 09:28] LABS: BASO % 1.1 % (0-2.0); EOS % 2.5 % (0-4.5); HEMATOCRIT 33.6 % (32.4-45.2); LYMPH % 11.7 % (8-40); MCH 31.3 pg (25.7-33.7); MCHC 32.9 g/dl (32.0-36.0); MEAN CELL VOLUME 95.2 fl (80-96); MEAN PLT VOLUME 7.5 fl (7.5-11.1); MONO % 8.3 % (3.8-10.2); NEUT % 76.4 % (42.8-82.8); PLATELET COUNT 251 K/MM3 (134-434); RBC 3.53 M/mm3 (3.60-5.2); RDW 13.5 % (11.6-15.6); WHITE BLOOD COUNT 11.3 K/mm3 (4.0-10.8)
[2018-05-04] MEDS: amLODIPine BESYLATE 10 MG TABLET (FP) PO SCH (10:07)
[2018-05-04] MEDS: CEFTRIAXONE 1 G/50 ML PREMIX 50 ML IVPB SCH (10:08)
[2018-05-04] MEDS: ALLOPURINOL 100 MG TABLET (FP) PO SCH (10:08)
[2018-05-04] MEDS: VANCOMYCIN 1,250 MG in DEXTROSE 5%-WATER - 250 ML IVPB SCH ×2 (11:00→22:00)
--- NOTE | 2018-05-04 16:06 | PN ---
Progress Note, Physician Chief Complaint: no fever, no pain in the left calf s/p fall and hematoma of the left calf, increased redness , loculated hematoma of soft tissue by US poor vein access and consequently inability to administer VAncomycin optimally History of Present Illness: 68 yo female with PMH of Atrial Fibrillation on chronic anticoagulation,with Xarelto, fell in her house, after getting entangled in the strings of a purse. The patient did not hit her head and did not lose consciousness. During her fall she injured her left lower extremity developing an extensive hematoma which affected her left knees,left popliteal area, and left calf . In interim she developed celluilits of the left calf and a 10 cm/10 cm blister filled with serous fluid. A soft tissue ultrasound was performed showing loculated hematomea with pockets of blood, approximately 3 cm - Current Medication List Current Medications: Active Medications Acetaminophen (Tylenol -) 500 mg PO Q6H PRN PRN Reason: PAIN LEVEL 5-10 Last Admin: 04/30/18 13:00 Dose: 500 mg Allopurinol (Zyloprim -) 100 mg PO DAILY [facility] Last Admin: 05/04/18 10:08 Dose: 100 mg Amlodipine Besylate (Norvasc -) 10 mg PO DAILY [facility] Last Admin: 05/04/18 10:07 Dose: 10 mg Ceftriaxone Sodium (Ceftriaxone 1 Gm-D5w Bag) 50 mls @ 100 mls/hr IVPB DAILY [facility] Last Admin: 05/04/18 10:08 Dose: 100 mls/hr Vancomycin HCl 1,250 mg/ (Dextrose) 250 mls @ 166.667 mls/hr IVPB Q12H [facility]; Protocol Last Admin: 05/04/18 11:00 Dose: 166.667 mls/hr Metoprolol Succinate (Toprol Xl -) 100 mg PO HS [facility] Last Admin: 05/03/18 21:19 Dose: 100 mg - Objective Vital Signs: Vital Signs Temperature 98.9 F 05/04/18 14:13 Pulse Rate 78 05/04/18 14:13 Respiratory Rate 16 05/04/18 14:13 Blood Pressure 115/62 05/04/18 14:13 O2 Sat by Pulse Oximetry (%) 94 L 05/04/18 14:13 Constitutional: Yes: No Distress, Calm Eyes: Yes: Conjunctiva Clear, EOM Intact HENT: Yes: Atraumatic, Normocephalic Neck: Yes: Supple, Trachea Midline Cardiovascular: Yes: Regular Rate and Rhythm Respiratory: Yes: Regular, CTA Bilaterally Gastrointestinal: Yes: Normal Bowel Sounds, Soft, Abdomen, Obese. No: Hepatomegaly, Splenomegaly Extremities: No: Calf Tenderness Edema: Yes Edema: RUE: 2+ Integumentary: Yes: Other Psychiatric: Yes: Alert, Oriented Labs: CBC, BMP 05/04/18 09:14 05/03/18 07:20 INR, PTT INR 1.26 (0.82-1.09) H 04/29/18 16:45 Problem List - Problems (1) Leukocytosis Assessment/Plan: improving on VAncomycin, there is no fever, continue monitoring, blood cultures if fever Code(s): D72.829 - ELEVATED WHITE BLOOD CELL COUNT, UNSPECIFIED (2) Hematoma Assessment/Plan: Xarelto stopped again, concerns for reactivation of bleeding serial CBC stable Code(s): T14.8XXA - OTHER INJURY OF UNSPECIFIED BODY REGION, INITIAL ENCOUNTER (3) Fall on same level as cause of accidental injury Assessment/Plan: monitor for compartment syndrome keep left lower extremity elevated ice every 45 minutes for 10 minutes each time while awake Code(s): W18.30XA - FALL ON SAME LEVEL, UNSPECIFIED, INITIAL ENCOUNTER (4) Atrial fibrillation Assessment/Plan: Toprol XL Xarelto was started yesterday and now placed on hold again, the patient has an extensive hematoma of the left lower extremity consult Cardiology on AC with Xarelto and risks evaluation Code(s): I48.91 - UNSPECIFIED ATRIAL FIBRILLATION (5) HTN (hypertension) Assessment/Plan: Continue Toprol and Norvasc Code(s): I10 - ESSENTIAL (PRIMARY) HYPERTENSION (6) Cellulitis of calf Assessment/Plan: Vancomycin iv the patient has poor iv access and the insertion of a PICC line is recommended to insure proper administration of iv antibiotics contacted IR Code(s): L03.119 - CELLULITIS OF UNSPECIFIED PART OF LIMB (7) Acute blood loss anemia Code(s): D62 - ACUTE POSTHEMORRHAGIC ANEMIA
--- NOTE | 2018-05-05 08:18 | PN ---
Progress Note (short form) - Note Progress Note: f/u for Dr Dasilva no fevers reports leg slightly improved not sleeping well at night Vital Signs Period Temp Pulse Resp BP Sys/Oakes Pulse Ox Last 24 Hr 97.8 F-99.0 F 69-85 16-20 102-158/51-73 93-97 cor-rrr lungs clear abd soft,nt ext +ecchymoses tracking up back of her RLE, large hematoma with erythema at the lower aspect still some oozing blood, no purulence, no fluctuance CBC, BMP 05/04/18 09:14 05/03/18 07:20 Microbiology 04/30/18 15:30 Aspirate Gram Stain - Final 04/30/18 15:30 Aspirate Body Fluid Culture - Final NO GROWTH OF AEROBIC ORGANISMS AFTER 48 HOURS INCUBATION 04/30/18 15:30 Aspirate Anaerobic Culture - Final NO ANAEROBES WERE ISOLATED Laboratory Tests 05/04/18 09:14 Vancomycin Pre-Dose 23.7 a/p cellulitis LLE- slight improvement hematoma afib- anticoagulation on hold per PMD continue ceftriaxone, hold vancomycin check trough in am please call me the vancomycin level in am
[2018-05-05 09:43] LABS: BASO % 2.1 % (0-2.0); EOS % 2.9 % (0-4.5); HEMATOCRIT 35.4 % (32.4-45.2); HEMOGLOBIN 11.2 GM/dl (10.7-15.3); MCH 30.3 pg (25.7-33.7); MCHC 31.8 g/dl (32.0-36.0); MEAN CELL VOLUME 95.4 fl (80-96); MEAN PLT VOLUME 7.5 fl (7.5-11.1); MONO % 9.3 % (3.8-10.2); NEUT % 72.7 % (42.8-82.8); PLATELET COUNT 282 K/MM3 (134-434); RBC 3.71 M/mm3 (3.60-5.2); RDW 13.7 % (11.6-15.6)
[2018-05-05] MEDS: amLODIPine BESYLATE 10 MG TABLET (FP) PO SCH (10:38)
[2018-05-05] MEDS: CEFTRIAXONE 1 G/50 ML PREMIX 50 ML IVPB SCH (10:38)
[2018-05-05] MEDS: ALLOPURINOL 100 MG TABLET (FP) PO SCH (10:38)
--- NOTE | 2018-05-05 12:43 | PN ---
Progress Note (short form) - Note Progress Note: s: no chest pain, palps, dizziness, dyspnea. Current Medications Generic Name Dose Route Start Last Admin Trade Name Lela PRN Reason Stop Dose Admin Acetaminophen 500 mg 04/28/18 22:46 04/30/18 13:00 Tylenol - PO 500 mg Q6H PRN Administration PAIN LEVEL 5-10 Allopurinol 100 mg 04/29/18 10:00 05/05/18 10:38 Zyloprim - PO 100 mg DAILY [facility] Administration Amlodipine Besylate 10 mg 04/29/18 10:00 05/05/18 10:38 Norvasc - PO 10 mg DAILY [facility] Administration Ceftriaxone Sodium 50 mls @ 100 mls/hr 05/01/18 10:00 05/05/18 10:38 Ceftriaxone 1 Gm-D5w Bag IVPB 100 mls/hr DAILY [facility] Administration Metoprolol Succinate 100 mg 04/28/18 22:45 05/04/18 21:58 Toprol Xl - PO 100 mg HS [facility] Administration Vital Signs: Vital Signs Period Temp Pulse Resp BP Sys/Oakes Pulse Ox Last 24 Hr 97.9 F-99.0 F 69-85 16-19 102-158/51-73 93-97 Constitutional: Yes: No Distress, Obese Eyes: No: Sclera Icterus HENT: No: Nasal Congestion Neck: No: Decreased ROM Respiratory: Yes: CTA Bilaterally. No: Accessory Muscle Use, Rales, Wheezes Gastrointestinal: Yes: Normal Bowel Sounds. No: Distention, Hepatomegaly, Palpable Mass, Tenderness Cardiovascular: Yes: Pulse Irregular JVD: No Carotid Bruit: No PMI: Non-Displaced Heart Sounds: Yes: S1, S2. No: Gallop Murmur: No: Systolic Murmur, Diastolic Murmur Extremities: No: Cool, Cyanosis Edema: Yes Peripheral Pulses: 2+ Left Carotid, 2+ Right Carotid, 2+ Left Doralis Pedis, 2+ Right Dorsalis Pedis Integumentary: No: Jaundice Neurological: Yes: Alert, Oriented (x3) Psychiatric: No: Agitated CBC, BMP 05/05/18 09:29 05/03/18 07:20 Assessment/Plan ECG (04/28): afib, normal axis and intervals, NSTWAs persistent Afib: -HR well controlled, continue metoprolol -CHADS VASC 3. on Xarelto 20 qd (note: est GFR on lab report of 44 is based on standardized to normal BSA. using modified CKD-EPI estimated creat clearance with pt's actual BSA, her est clearance is 59 hence this is correct dose) -given concern over hematoma of leg, this may prevent brisk healing of superficial infectious process and/or cause permanent venous insufficiency. cont holding Xarelto to allow healing of traumatic hematoma of leg HTN: -cont home metoprolol, amlodipine cellulitis: -per ID
--- NOTE | 2018-05-05 21:40 | PN ---
Progress Note, Physician Chief Complaint: edema of the left lower extremity is not improving, large round mass present in the left lateral aspect of the calf History of Present Illness: 68 yo female with PMH of Atrial Fibrillation on chronic anticoagulation,with Xarelto, fell in her house, after getting entangled in the strings of a purse. The patient did not hit her head and did not lose consciousness. During her fall she injured her left lower extremity developing an extensive hematoma which affected her left knees,left popliteal area, and left calf . In interim she developed celluilits of the left calf and a 10 cm/10 cm blister filled with serous fluid. A soft tissue ultrasound was performed showing loculated hematomea with pockets of blood, approximately 3 cm. - Current Medication List Current Medications: Active Medications Acetaminophen (Tylenol -) 500 mg PO Q6H PRN PRN Reason: PAIN LEVEL 5-10 Last Admin: 04/30/18 13:00 Dose: 500 mg Allopurinol (Zyloprim -) 100 mg PO DAILY [facility] Last Admin: 05/05/18 10:38 Dose: 100 mg Amlodipine Besylate (Norvasc -) 10 mg PO DAILY [facility] Last Admin: 05/05/18 10:38 Dose: 10 mg Ceftriaxone Sodium (Ceftriaxone 1 Gm-D5w Bag) 50 mls @ 100 mls/hr IVPB DAILY [facility] Last Admin: 05/05/18 10:38 Dose: 100 mls/hr Metoprolol Succinate (Toprol Xl -) 100 mg PO HS [facility] Last Admin: 05/04/18 21:58 Dose: 100 mg - Objective Vital Signs: Vital Signs Temperature 98.3 F 05/05/18 18:00 Pulse Rate 79 05/05/18 18:00 Respiratory Rate 16 05/05/18 18:00 Blood Pressure 119/62 05/05/18 18:00 O2 Sat by Pulse Oximetry (%) 96 05/05/18 18:00 Constitutional: Yes: No Distress, Calm Eyes: Yes: Conjunctiva Clear, EOM Intact HENT: Yes: Atraumatic, Normocephalic Neck: Yes: Supple, Trachea Midline Cardiovascular: Yes: Regular Rate and Rhythm, S1, S2 Respiratory: Yes: Regular, CTA Bilaterally Gastrointestinal: Yes: Normal Bowel Sounds, Soft, Abdomen, Obese. No: Hepatomegaly, Splenomegaly Extremities: No: Calf Tenderness Edema: No Peripheral Pulses WNL: No Neurological: Yes: Alert, Oriented Psychiatric: Yes: Alert, Oriented Labs: CBC, BMP 05/05/18 09:29 05/03/18 07:20 INR, PTT INR 1.26 (0.82-1.09) H 04/29/18 16:45 Problem List - Problems (1) Leukocytosis Assessment/Plan: on Ceftaroline, there is no fever, continue monitoring, blood cultures if fever Code(s): D72.829 - ELEVATED WHITE BLOOD CELL COUNT, UNSPECIFIED (2) Hematoma Assessment/Plan: intermittent ambulation as tolerated Xarelto is on hold, serial CBC stable Code(s): T14.8XXA - OTHER INJURY OF UNSPECIFIED BODY REGION, INITIAL ENCOUNTER (3) Fall on same level as cause of accidental injury Assessment/Plan: monitor for compartment syndrome keep left lower extremity elevated ice every 45 minutes for 10 minutes each time while awake Code(s): W18.30XA - FALL ON SAME LEVEL, UNSPECIFIED, INITIAL ENCOUNTER (4) Atrial fibrillation Assessment/Plan: Toprol XL Xarelto was started yesterday and now placed on hold again consult Cardiology on AC with Xarelto and risks evaluation Code(s): I48.91 - UNSPECIFIED ATRIAL FIBRILLATION (5) HTN (hypertension) Assessment/Plan: Continue Toprol and Norvasc Code(s): I10 - ESSENTIAL (PRIMARY) HYPERTENSION (6) Cellulitis of calf Assessment/Plan: Ceftaroline iv the patient has poor iv access and the insertion of a PICC line is recommended to insure proper administration of iv antibiotics contacted IR Code(s): L03.119 - CELLULITIS OF UNSPECIFIED PART OF LIMB (7) Acute blood loss anemia Assessment/Plan: monitor CBC Code(s): D62 - ACUTE POSTHEMORRHAGIC ANEMIA
--- NOTE | 2018-05-06 09:47 | PN ---
Progress Note (short form) - Note Progress Note: surgery pt seen and examined. full consult dictated. 68f on anticoagulation fell one week ago. large subcutaneous hematoma of lower left leg. some blistering and skin necrosis. no pain on plantarflexion. erythema. u/s x2 and xray reviewed. Plan- left lower leg hematoma. no compartment syndrome. no indication for incision and drainage. doubt infection...consider stopping abx. consider routine plastic eval for skin necrosis. no general surgical contra-indication to resuming anticoagulation or ambulation/shower. will be available.
--- NOTE | 2018-05-06 10:18 | CONS ---
DATE OF CONSULTATION: 05/06/2018 REASON FOR CONSULTATION: Left lower leg hematoma. REQUESTING PHYSICIAN: Radha Chapin MD This is an inpatient consultation. BRIEF HISTORY: This is a 68-year-old female on anticoagulation for atrial fibrillation who fell and injured her left lower extremity and developed a hematoma. She has been followed for a week in the hospital with serial ultrasound, and she has been off anticoagulation for approximately a week. The patient was able to ambulate but currently has been made bedrest. She is on antibiotics per the ID service for possible cellulitis. Request was made for surgical evaluation. PAST MEDICAL HISTORY: Significant for atrial fibrillation, hypertension. PAST SURGICAL HISTORY: She has had no surgeries on her leg. ALLERGIES: She has allergies to PENICILLIN and AZITHROMYCIN. MEDICATIONS: Include allopurinol, metoprolol, and Xarelto. FAMILY HISTORY: Noncontributory. REVIEW OF SYSTEMS: General: Denies fatigue or malaise. Cardiac: Denies chest pain or palpitations. Respiratory: No shortness of breath or wheeze. Gastrointestinal: No nausea or vomiting. Genitourinary: Denies dysuria. Musculoskeletal: Admits to pain in her left leg but she states she is able to walk on it. PHYSICAL EXAMINATION: General: This is an obese 68-year-old female in no distress. Vital Signs: She is afebrile. Vital signs are stable. HEENT: His head is normocephalic. Her sclerae are anicteric. Neck: Supple. Chest: Clear. Abdomen: Soft. Extremities: Her left lower leg has a large ecchymosis that is tracking to her posterior thigh. There is an area of skin necrosis due to the chronic pressure from the wound over the last week. There is expected fluctuance. There is slight erythema going toward the foot over the area of pressure. There appears to be some skin sloughing from a previous blister. There is no evidence of pus. The extremity is warm. Pulses are adequate. I am able to extend and flex the patient's foot without causing any calf pain. DIAGNOSTIC DATA: Review of her laboratory, white blood cell count 11. There is no shift. Her hemoglobin is 11, which is stable from April 30. It is actually higher than it was on admission. She has had Gram stains done, which were negative. She has had 2 ultrasounds, which showed a complex fluid collection, likely hematoma. She has had an x-ray, which showed no fracture. ASSESSMENT: A 68-year-old female who injured her leg on blood thinner and has a large complex hematoma. Currently, there is no indication to drain this hematoma as this will likely cause a more complex wound and could become infected and could retrigger bleeding. There is no evidence of compartment syndrome. PLAN: You should consider a Plastic Surgery evaluation for the skin necrosis as she may ultimately require more complex wound care or even a graft. This can be done routinely. Clinically, I doubt that there is actually an infection. Can consider stopping antibiotics. There is also no surgical contraindication to resuming the anticoagulation of Xarelto as she is currently not bleeding and has been off of it for many days. Also, I see no reason the patient cannot ambulate. In the meantime, when she is not walking, her leg should be elevated and consider warm compresses to help the hematoma resorb. DO ROBERTO CARRIZALES/[id number]
[2018-05-06] MEDS: ALLOPURINOL 100 MG TABLET (FP) PO SCH (10:35)
[2018-05-06] MEDS: CEFTRIAXONE 1 G/50 ML PREMIX 50 ML IVPB SCH (10:35)
[2018-05-06] MEDS: amLODIPine BESYLATE 10 MG TABLET (FP) PO SCH (10:35)
--- NOTE | 2018-05-06 18:01 | PN ---
Progress Note (short form) - Note Progress Note: f/u for Dr Dasilva quite frustrated Vital Signs Period Temp Pulse Resp BP Sys/Oakes Pulse Ox Last 24 Hr 97.8 F-99.3 F 72-80 17-18 108-127/56-63 94-96 leg about the same vanco trough 12 this am CBC, BMP 05/05/18 09:29 05/03/18 07:20 a/p hematoma with ?cellulitis switch to ceftaroline Dr Dasilva to re-evaluate on Tuesday
[2018-05-06] MEDS ORDERED: GLYCERIN 1 RECTAL SUPPOSITORY, ADULT PR PRN (18:45)
[2018-05-06] MEDS: CEFTAROLINE FOSAMIL ACETATE 600 MG in DEXTROSE 5%-WATER - 100 ML IVPB SCH (21:29)
[2018-05-06] MEDS: BACITRACIN 0.9 GM PACKET TP SCH (21:29)
--- NOTE | 2018-05-06 23:03 | PN ---
Progress Note, Physician Chief Complaint: no fever, pain in the left calf, s/p fall and hematoma of the left calf, increased redness , increased complex loculated hematoma of soft tissue by US poor vein access and consequently inability to administer VAncomycin optimally History of Present Illness: 68 yo female with PMH of Atrial Fibrillation on chronic anticoagulation,with Xarelto, fell in her house, after getting entangled in the strings of a purse. The patient did not hit her head and did not lose consciousness. During her fall she injured her left lower extremity developing an extensive hematoma which affected her left knees,left popliteal area, and left calf . In interim she developed celluilits of the left calf and a 10 cm/10 cm blister filled with serous fluid. A soft tissue ultrasound was performed showing loculated hematomea with pockets of blood, approximately 3 cm, the most recent ultrasouhnd shows extension of the hematoma - Current Medication List Current Medications: Active Medications Acetaminophen (Tylenol -) 500 mg PO Q6H PRN PRN Reason: PAIN LEVEL 5-10 Last Admin: 04/30/18 13:00 Dose: 500 mg Allopurinol (Zyloprim -) 100 mg PO DAILY [facility] Last Admin: 05/06/18 10:35 Dose: 100 mg Amlodipine Besylate (Norvasc -) 10 mg PO DAILY [facility] Last Admin: 05/06/18 10:35 Dose: 10 mg Bacitracin (Bacitracin -) 0.9 gm TP DAILY [facility] Last Admin: 05/06/18 21:29 Dose: 0.9 gm Ceftaroline Fosamil 600 mg/ (Dextrose) 100 mls @ 200 mls/hr IVPB BID [facility]; Protocol Last Admin: 05/06/18 21:29 Dose: 200 mls/hr Metoprolol Succinate (Toprol Xl -) 100 mg PO HS [facility] Last Admin: 05/06/18 21:29 Dose: 100 mg - Objective Vital Signs: Vital Signs Temperature 99.3 F 05/06/18 22:20 Pulse Rate 77 05/06/18 22:20 Respiratory Rate 18 05/06/18 22:20 Blood Pressure 116/59 L 05/06/18 22:20 O2 Sat by Pulse Oximetry (%) 97 05/06/18 22:20 Constitutional: Yes: No Distress, Calm Eyes: Yes: Conjunctiva Clear, EOM Intact HENT: Yes: Atraumatic, Normocephalic Neck: Yes: Supple, Trachea Midline Cardiovascular: Yes: Regular Rate and Rhythm, S1, S2 Respiratory: Yes: Regular, CTA Bilaterally, Rhonchi. No: Rales Gastrointestinal: Yes: Normal Bowel Sounds, Soft, Abdomen, Obese Labs: CBC, BMP 05/05/18 09:29 05/03/18 07:20 INR, PTT INR 1.26 (0.82-1.09) H 04/29/18 16:45 Problem List - Problems (1) Leukocytosis Assessment/Plan: improving on VAncomycin, there is no fever, continue monitoring, blood cultures if fever iv antibiotic choice modified today to Cetarallinr reeat cbc n am Code(s): D72.829 - ELEVATED WHITE BLOOD CELL COUNT, UNSPECIFIED (2) Hematoma Assessment/Plan: Xarelto stopped again, concerns for reactivation of bleeding serial CBC stable plastic surgery consult Code(s): T14.8XXA - OTHER INJURY OF UNSPECIFIED BODY REGION, INITIAL ENCOUNTER (3) Fall on same level as cause of accidental injury Assessment/Plan: monitor for compartment syndrome keep left lower extremity elevated ice every 45 minutes for 10 minutes each time while awake Code(s): W18.30XA - FALL ON SAME LEVEL, UNSPECIFIED, INITIAL ENCOUNTER (4) Atrial fibrillation Assessment/Plan: Toprol XL Xarelto was started yesterday and now placed on hold again, the patient has an extensive hematoma of the left lower extremity consult Cardiology on AC with Xarelto and risks evaluation Code(s): I48.91 - UNSPECIFIED ATRIAL FIBRILLATION (5) HTN (hypertension) Assessment/Plan: Continue Toprol and Norvasc Code(s): I10 - ESSENTIAL (PRIMARY) HYPERTENSION (6) Cellulitis of calf Code(s): L03.119 - CELLULITIS OF UNSPECIFIED PART OF LIMB (7) Acute blood loss anemia Code(s): D62 - ACUTE POSTHEMORRHAGIC ANEMIA
[2018-05-07 08:37] LABS: BASO % 0.6 % (0-2.0); HEMATOCRIT 34.1 % (32.4-45.2); HEMOGLOBIN 11.2 GM/dl (10.7-15.3); LYMPH % 9.6 % (8-40); MCH 30.9 pg (25.7-33.7); MEAN CELL VOLUME 93.8 fl (80-96); MEAN PLT VOLUME 7.7 fl (7.5-11.1); MONO % 8.1 % (3.8-10.2); NEUT % 78.7 % (42.8-82.8); PLATELET COUNT 334 K/MM3 (134-434); RBC 3.63 M/mm3 (3.60-5.2); RDW 13.1 % (11.6-15.6); WHITE BLOOD COUNT 11.5 K/mm3 (4.0-10.8)
[2018-05-07 09:50] LABS: ALBUMIN 2.8 g/dl (3.4-5.0); ALK PHOS 61 U/L (45-117); ANION GAP 9 MMOL/L (8-16); BILIRUBIN,TOTAL 0.7 mg/dl (0.2-1); BLOOD UREA NITROGEN 21 mg/dl (7-18); CALCIUM 8.4 mg/dl (8.5-10); CHLORIDE 102 mmol/L (98-107); CO2 28 mmol/L (21-32); GLUCOSE,RANDOM 93 mg/dl (74-106); SGOT/AST 18 U/L (15-37); SGPT/ALT 13 U/L (13-61); SODIUM 139 mmol/L (136-145); TOT PROT 5.2 g/dl (6.4-8.2)
[2018-05-07] MEDS: amLODIPine BESYLATE 10 MG TABLET (FP) PO SCH (09:56)
[2018-05-07] MEDS: CEFTAROLINE FOSAMIL ACETATE 600 MG in DEXTROSE 5%-WATER - 100 ML IVPB SCH ×2 (09:56→21:24)
[2018-05-07] MEDS: BACITRACIN 0.9 GM PACKET TP SCH ×3 (09:56→11:30)
[2018-05-07] MEDS: ALLOPURINOL 100 MG TABLET (FP) PO SCH (09:56)
--- NOTE | 2018-05-07 12:11 | PN ---
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 The patient did not hit her head and did not lose consciousness. During her fall she injured her left lower extremity developing an extensive hematoma which affected her left knees,left popliteal area, and left calf . In interim she developed celluilits of the left calf. A soft tissue ultrasound was performed showing loculated hematoma 6/4/3 cm with pockets of blood, the most recent ultrasound shows extension of the hematoma - Current Medication List Current Medications: Active Medications Acetaminophen (Tylenol -) 500 mg PO Q6H PRN PRN Reason: PAIN LEVEL 5-10 Last Admin: 04/30/18 13:00 Dose: 500 mg Allopurinol (Zyloprim -) 100 mg PO DAILY [facility] Last Admin: 05/07/18 09:56 Dose: 100 mg Amlodipine Besylate (Norvasc -) 10 mg PO DAILY [facility] Last Admin: 05/07/18 09:56 Dose: 10 mg Bacitracin (Bacitracin -) 0.9 gm TP DAILY [facility] Last Admin: 05/07/18 11:30 Dose: Not Given Ceftaroline Fosamil 600 mg/ (Dextrose) 100 mls @ 200 mls/hr IVPB BID [facility]; Protocol Last Admin: 05/07/18 09:56 Dose: 200 mls/hr Metoprolol Succinate (Toprol Xl -) 100 mg PO HS [facility] Last Admin: 05/06/18 21:29 Dose: 100 mg - Objective Vital Signs: Vital Signs Temperature 98.5 F 05/07/18 10:00 Pulse Rate 76 05/07/18 10:00 Respiratory Rate 19 05/07/18 10:00 Blood Pressure 111/62 05/07/18 10:00 O2 Sat by Pulse Oximetry (%) 95 05/07/18 10:00 Constitutional: Yes: No Distress, Calm Eyes: Yes: Conjunctiva Clear, EOM Intact HENT: Yes: Atraumatic, Normocephalic Neck: Yes: Supple, Trachea Midline Cardiovascular: Yes: Regular Rate and Rhythm, S1, S2 Respiratory: Yes: Regular, CTA Bilaterally Gastrointestinal: Yes: Normal Bowel Sounds, Soft, Abdomen, Obese. No: Hepatomegaly, Splenomegaly Edema: Yes Edema: LLE: 2+ Peripheral Pulses WNL: Yes Neurological: Yes: Alert, Oriented Psychiatric: Yes: Alert, Oriented Labs: CBC, BMP 05/07/18 06:00 05/07/18 06:00 INR, PTT INR 1.26 (0.82-1.09) H 04/29/18 16:45 Problem List - Problems (1) Leukocytosis Assessment/Plan: antibiotics changed to Ceftaroline there is no fever, continue monitoring, blood cultures if fever repeat cbc in am Code(s): D72.829 - ELEVATED WHITE BLOOD CELL COUNT, UNSPECIFIED (2) Hematoma Code(s): T14.8XXA - OTHER INJURY OF UNSPECIFIED BODY REGION, INITIAL ENCOUNTER (3) Fall on same level as cause of accidental injury Code(s): W18.30XA - FALL ON SAME LEVEL, UNSPECIFIED, INITIAL ENCOUNTER (4) Atrial fibrillation Code(s): I48.91 - UNSPECIFIED ATRIAL FIBRILLATION (5) HTN (hypertension) Code(s): I10 - ESSENTIAL (PRIMARY) HYPERTENSION (6) Cellulitis of calf Code(s): L03.119 - CELLULITIS OF UNSPECIFIED PART OF LIMB (7) Acute blood loss anemia Code(s): D62 - ACUTE POSTHEMORRHAGIC ANEMIA
[2018-05-08 08:02] LABS: BASO % 0.4 % (0-2.0); EOS % 2.9 % (0-4.5); HEMATOCRIT 33.7 % (32.4-45.2); HEMOGLOBIN 11.1 GM/dl (10.7-15.3); MCH 31.3 pg (25.7-33.7); MCHC 33.1 g/dl (32.0-36.0); MEAN CELL VOLUME 94.5 fl (80-96); MEAN PLT VOLUME 7.5 fl (7.5-11.1); MONO % 6.2 % (3.8-10.2); NEUT % 84.5 % (42.8-82.8); PLATELET COUNT 340 K/MM3 (134-434); RBC 3.57 M/mm3 (3.60-5.2); RDW 13.3 % (11.6-15.6); WHITE BLOOD COUNT 11.8 K/mm3 (4.0-10.8)
[2018-05-08 08:17] LABS: INR 1.28 (0.82-1.09); PROTHROMBIN TIME (PATIENT) 14.3 SEC (10.2-13.0)
[2018-05-08 08:29] LABS: ALBUMIN 2.7 g/dl (3.4-5.0); ALK PHOS 60 U/L (45-117); ANION GAP 5 MMOL/L (8-16); BILIRUBIN,TOTAL 0.8 mg/dl (0.2-1); BLOOD UREA NITROGEN 21 mg/dl (7-18); CALCIUM 8.3 mg/dl (8.5-10); CHLORIDE 104 mmol/L (98-107); CO2 30 mmol/L (21-32); CREATININE 1.2 mg/dl (0.55-1.3); GLUCOSE,RANDOM 94 mg/dl (74-106); POTASSIUM 4.4 mmol/L (3.5-5.1); SGOT/AST 16 U/L (15-37); SGPT/ALT 13 U/L (13-61); SODIUM 139 mmol/L (136-145)
--- NOTE | 2018-05-08 08:31 | CON.ORTH ---
Consult Reason for Consultation:: left calf hematoma - Past Medical History Cardio/Vascular: Yes: AFIB, HTN ...LMP Comment: 68 YEARS OLD - Alcohol/Substance Use Hx Alcohol Use: No - Smoking History Smoking history: Never smoked Have you smoked in the past 12 months: No Aproximately how many cigarettes per day: 0 Home Medications - Allergies Allergies/Adverse Reactions: Allergies Allergy/AdvReac Type Severity Reaction Status Date / Time Penicillins Allergy Verified 04/28/18 12:30 azithromycin AdvReac Intermediate Diarrhea Verified 04/28/18 12:30 - Home Medications Home Medications: Ambulatory Orders Calcium 250Mg/Vit-D 125 Units [Oscal 250 mg+D] 2 each PO DAILY 06/18/12 Allopurinol [Zyloprim -] 100 mg PO DAILY 04/28/18 Metoprolol Succinate [Toprol Xl] 100 mg PO HS 04/28/18 Rivaroxaban [Xarelto -] 20 mg PO DAILY 04/28/18 Physical Exam for Ortho Vital Signs: Vital Signs Temperature 98.4 F 05/08/18 06:18 Pulse Rate 73 05/08/18 06:18 Respiratory Rate 18 05/08/18 08:14 Blood Pressure 112/62 05/08/18 06:18 O2 Sat by Pulse Oximetry (%) 97 05/08/18 08:14 Labs: CBC, BMP 05/08/18 07:00 INR, PTT INR 1.28 (0.82-1.09) H 05/08/18 07:00 - Lower Extremity Knee: Yes: Left, Ecchymosis, Hematoma Ankle: Yes: Left, Ecchymosis, Hematoma, Other (+ ecchymosis and hematoma over lateral aspect of calf, minimal ttp, good rom of knee and ankle, normal sensation, 2+ pulses b/l, nvi) Imaging - Results X-ray: Report Reviewed, Image Reviewed Ultrasound: Report Reviewed, Image Reviewed Assessment/Plan 68 yo female with PMH of Atrial Fibrillation on chronic anticoagulation,with Xarelto, fell in her house, after getting entangled in the strings of a purse. The patient did not hit her head and did not lose consciousness. During her fall she injured her left lower extremity developing an extensive hematoma which affected her left knees,left popliteal area, and left calf. Pt was able to ambulate without any difficulty yesterday. a/p- left calf hematoma Plastics to eval for possible I&D NTD from ortho pov PT, wbat elevation d/w Dr. Hernandez
[2018-05-08] MEDS: ALLOPURINOL 100 MG TABLET (FP) PO SCH (09:42)
[2018-05-08] MEDS: amLODIPine BESYLATE 10 MG TABLET (FP) PO SCH (09:42)
[2018-05-08] MEDS: BACITRACIN 0.9 GM PACKET TP SCH (09:43)
[2018-05-08] MEDS: CEFTAROLINE FOSAMIL ACETATE 600 MG in DEXTROSE 5%-WATER - 100 ML IVPB SCH ×2 (09:44→21:09)
--- NOTE | 2018-05-08 15:04 | PN ---
Progress Note (short form) - Note Progress Note: Patient with a one week history of hematoma to the left leg. Secondary infection is resolving with abx, and by the patient's report the leg is not enlarging over the past two days. There is an area of likely demarcated skin necrosis over the posterior calf. Distally she is NV intact. I have recommended operative incision and evacuation of the hematoma. Ultimately a VAC and potentially a skin graft may be required, but neither can be considered until the cellulitis fully resolves. A full consult will be dictated.
[2018-05-08] MEDS ORDERED: SUCCINYLCHOLINE CHLORIDE 200 MG/10 ML VIAL ONE (15:19)
[2018-05-08] MEDS ORDERED: PROPOFOL 20 ML ONE (15:19)
[2018-05-08] MEDS ORDERED: ceFAZolin SODIUM 1 GM VIAL ONE (15:23)
[2018-05-08] MEDS ORDERED: LIDOCAINE HCL 1% PRESERVATIVE FREE - 30ML VIAL ONE (15:28)
[2018-05-08] MEDS ORDERED: LIDOCAINE HCL 1% PRESERVATIVE FREE - 30ML VIAL IJ ONE (16:10)
[2018-05-08] MEDS ORDERED: BACITRACIN 15 GM TUBE TOPICAL OINTMENT ONE (16:17)
[2018-05-08] MEDS ORDERED: oxyCODONE HCL 5 MG TABLET PO PRN ×2 (16:37)
[2018-05-08] MEDS ORDERED: ONDANSETRON 4 MG/2 ML VIAL IVPUSH PRN (16:37)
[2018-05-08] MEDS ORDERED: PROMETHAZINE HCL 25 MG/1 ML VIAL IVPUSH PRN (16:37)
--- NOTE | 2018-05-08 17:20 | CONSULT ---
Consult - text type - Consultation Consultation Note: Chief Complaint: Hematoma on left leg. fall 11 days ago on left lower extremity while on Xarelto History of Present Illness: 68 yo obese female with PMH of Atrial Fibrillation, fell at home after getting entangled in a purse string. The patient fell on her knees. She has been an inpatient here since 04/28. There was an earlier attempt at drainage of the hematoma. Two sonograms have shown increased size of the collection. She has also developed an associated cellulitis which has been treated with antibiotics. By the patient report, the leg size has not increased in the past 48 hours. Pain is mild. She is able to ambulate to the bathroom and has earlier today. Patient has already been seen by General surgery and Orthopedics. History Source: Patient - Past Medical History Cardiovascular: Yes: AFIB, HTN ...LMP Comment: 68 YEARS OLD - Smoking History Smoking history: Never smoked Have you smoked in the past 12 months: No Aproximately how many cigarettes per day: 0 - Alcohol/Substance Use Hx Alcohol Use: No Home Medications - Allergies Allergies/Adverse Reactions: Allergies Allergy/AdvReac Type Severity Reaction Status Date / Time Penicillins Allergy Verified 04/28/18 12:30 azithromycin AdvReac Intermediate Diarrhea Verified 04/28/18 12:30 - Home Medications Home Medications: Ambulatory Orders Calcium 250Mg/Vit-D 125 Units [Oscal 250 mg+D] 2 each PO DAILY 06/18/12 Allopurinol [Zyloprim -] 100 mg PO DAILY 04/28/18 Metoprolol Succinate [Toprol Xl] 100 mg PO HS 04/28/18 Rivaroxaban [Xarelto -] 20 mg PO DAILY 04/28/18 Review of Systems - Review of Systems Constitutional: reports: No Symptoms Eyes: reports: No Symptoms HENT: reports: No Symptoms Neck: reports: No Symptoms Cardiovascular: reports: Edema (chronic edema of the lower etxremities) Respiratory: reports: No Symptoms Gastrointestinal: reports: No Symptoms Genitourinary: reports: No Symptoms Musculoskeletal: reports: Extremity Pain (pain of jeremías left knee and extensive hematoma of the left lower extremity) Physical Examination Vital Signs: Vital Signs Temperature 98.8 F 04/29/18 18:00 Pulse Rate 74 04/29/18 18:00 Respiratory Rate 17 04/29/18 18:00 Blood Pressure 99/54 L 04/29/18 18:00 O2 Sat by Pulse Oximetry (%) 95 04/29/18 18:00 Constitutional: Yes: No Distress, Calm Eyes: Yes: Conjunctiva Clear, EOM Intact HENT: Yes: Atraumatic, Normocephalic Neck: Yes: Supple, Trachea Midline Cardiovascular: Yes: Regular Rate and Rhythm Respiratory: Yes: Regular, CTA Bilaterally Gastrointestinal: Yes: Normal Bowel Sounds, Soft, Abdomen, Obese, Other (could not evaluate internal organs due to obesity) Extremities: Yes: tense subcutaneous collection palpated on the lateral posterior left leg. Absolutely no evidence of compartment syndrome with minimal pain over leg and with no difficulty with knee and ankle ranging. Compartments are soft. There is an area of demarcating skin necrosis overlying the tense area with blistering and skin discoloration Edema: Yes Peripheral Pulses WNL: Yes Neurological: Grossly intact to the left foot. There is a palpable DP pulse with a pink and viable foot. Normal distal sensation. Psychiatric: Yes: Alert, Oriented Labs: Revieed per hospital chart Imaging - Results X-ray: Other (tibia and fibula X ray with no fracture) Sonogram x 2 with subcutaneous hematoma Assessment: Subcutaneous hematoma from fall 11 days ago. It had initially progressed but has stopped expanding several days ago. No compartment syndrome. Plan: Incision and drainage of the hematoma. I expect that there will be some tissue loss from the trauma which will ultimately require a vac and possibly a skin graft. Both will be deferred until the cellulitis resolves. Until then, wet-dry dressing changes. I have discussed surgical options and recommendations with the patient. This represents a high degree of complexity of medical decision making.
[2018-05-08] MEDS: DEXTROSE 5%-0.45% SALINE 1,000 ML IV SCH (18:19)
--- NOTE | 2018-05-08 18:23 | PN ---
Progress Note, Physician Chief Complaint: no fever, pain in the left calf, had hematoma of the left calf evacuated today in OR and tolerated well the procedure History of Present Illness: 68 yo female with PMH of Atrial Fibrillation on chronic AC with Xarelto, developed large hematoma of the left calf after a fall. Her hematoma was evacuated today in OR and isaac a volume of 500 cc The patient was seen after the OR and was comfortable without any complaints - Current Medication List Current Medications: Active Medications Acetaminophen (Tylenol -) 500 mg PO Q6H PRN PRN Reason: PAIN LEVEL 5-10 Last Admin: 04/30/18 13:00 Dose: 500 mg Allopurinol (Zyloprim -) 100 mg PO DAILY [facility] Last Admin: 05/08/18 09:42 Dose: Not Given Amlodipine Besylate (Norvasc -) 10 mg PO DAILY [facility] Last Admin: 05/08/18 09:42 Dose: Not Given Bacitracin (Bacitracin -) 0.9 gm TP DAILY [facility] Last Admin: 05/08/18 09:43 Dose: Not Given Enoxaparin Sodium (Lovenox -) 30 mg SQ DAILY [facility] Fentanyl (Sublimaze Injection -) 50 mcg IVPUSH Q5M PRN PRN Reason: PAIN-PACU ORDER X 4 DOSES ONLY Stop: 05/09/18 04:00 Last Admin: 05/08/18 17:34 Dose: 25 mcg Ceftaroline Fosamil 600 mg/ (Dextrose) 100 mls @ 200 mls/hr IVPB BID [facility]; Protocol Last Admin: 05/08/18 09:44 Dose: 200 mls/hr Dextrose/Sodium Chloride (D5-1/2ns -) 1,000 mls @ 75 mls/hr IV ASDIR [facility] Last Admin: 05/08/18 18:19 Dose: 75 mls/hr Metoprolol Succinate (Toprol Xl -) 100 mg PO HS [facility] Last Admin: 05/07/18 21:28 Dose: 100 mg Ondansetron HCl (Zofran Injection) 4 mg IVPUSH Q6H PRN PRN Reason: NAUSEA AND/OR VOMITING Oxycodone HCl (Roxicodone -) 5 mg PO Q4H PRN PRN Reason: PAIN LEVEL 1-5 Oxycodone HCl (Roxicodone -) 10 mg PO Q4H PRN PRN Reason: PAIN LEVEL 6-10 Promethazine HCl (Phenergan Injection -) 12.5 mg IVPUSH Q6H PRN PRN Reason: NAUSEA-FOR RESCUE AFTER 15 MIN - Objective Vital Signs: Vital Signs Temperature 97.6 F 05/08/18 18:17 Pulse Rate 76 05/08/18 18:17 Respiratory Rate 18 05/08/18 18:17 Blood Pressure 113/65 05/08/18 18:17 O2 Sat by Pulse Oximetry (%) 95 05/08/18 18:17 Constitutional: Yes: No Distress, Calm Eyes: Yes: Conjunctiva Clear, EOM Intact HENT: Yes: Atraumatic, Normocephalic Neck: Yes: Supple, Trachea Midline Cardiovascular: Yes: Regular Rate and Rhythm Respiratory: Yes: Regular, CTA Bilaterally Gastrointestinal: Yes: Normal Bowel Sounds, Soft, Abdomen, Obese. No: Hepatomegaly, Splenomegaly Musculoskeletal: Yes: WNL Edema: Yes Edema: RLE: 1+ Peripheral Pulses WNL: Yes Peripheral Pulses: Left Radial: 2+, Right Radial: 2+, Left Doralis Pedis: 2+, Right Dorsalis Pedis: 2+, Left Femoral: 2+, Right Femoral: 2+ Neurological: Yes: Alert, Oriented. No: Weakness Psychiatric: Yes: Alert, Oriented Labs: CBC, BMP 05/08/18 07:00 05/08/18 07:00 INR, PTT INR 1.28 (0.82-1.09) H 05/08/18 07:00 Problem List - Problems (1) Leukocytosis Assessment/Plan: antibiotics changed to Ceftaroline there is no fever, continue monitoring, blood cultures if fever repeat cbc in am Code(s): D72.829 - ELEVATED WHITE BLOOD CELL COUNT, UNSPECIFIED (2) Hematoma Assessment/Plan: Xarelto stopped again, concerns for reactivation of bleeding serial CBC stable evacuation performed today by plastic surgery Code(s): T14.8XXA - OTHER INJURY OF UNSPECIFIED BODY REGION, INITIAL ENCOUNTER (3) Fall on same level as cause of accidental injury Assessment/Plan: monitor for compartment syndrome keep left lower extremity elevated ice every 45 minutes for 10 minutes each time while awake Code(s): W18.30XA - FALL ON SAME LEVEL, UNSPECIFIED, INITIAL ENCOUNTER (4) Atrial fibrillation Assessment/Plan: Toprol XL stable Code(s): I48.91 - UNSPECIFIED ATRIAL FIBRILLATION (5) HTN (hypertension) Assessment/Plan: Continue Toprol and Norvasc Code(s): I10 - ESSENTIAL (PRIMARY) HYPERTENSION (6) Cellulitis of calf Assessment/Plan: Vancomycin iv the patient has poor iv access and the insertion of a PICC line is recommended to insure proper administration of iv antibiotics continue CAftaroline as per ID Code(s): L03.119 - CELLULITIS OF UNSPECIFIED PART OF LIMB (7) Acute blood loss anemia Assessment/Plan: monitor CBC Code(s): D62 - ACUTE POSTHEMORRHAGIC ANEMIA
[2018-05-08] MEDS ORDERED: PT OWN MED DRAWER 7, Y5N ONE (21:08)
--- NOTE | 2018-05-09 01:20 | OP ---
DATE OF OPERATION: 05/08/2018 PROCEDURE: Left leg subcutaneous hematoma evacuation. PREOPERATIVE DIAGNOSIS: Left leg subcutaneous hematoma with overlying skin necrosis. POSTOPERATIVE DIAGNOSIS: Left leg subcutaneous hematoma with overlying skin necrosis. ATTENDING SURGEON: Sindhu Munroe MD COMPUTER ASSISTANT: None. ANESTHESIA: General endotracheal anesthesia. Patient also at the end of the procedure was given a 10 mL 1% lidocaine plain field block to the surrounding skin. DESCRIPTION OF PROCEDURE: The patient is counseled on the risks, benefits, and alternatives as well as limitations of the procedure. Patient is also counseled on the likely need for postoperative wound care, given the extensive cavitation and tissue destruction from this underlying hematoma that has now been present for over a week. The patient understands and agrees to proceed. She was brought to the operating room and placed in the supine position. The position is carefully checked by surgical and anesthesia teams. After induction of general anesthesia, she was draped and prepped in the standard surgical fashion. Timeout is called. Patient, procedure, site, and sides are verified. At this point, a longitudinal incision was made directly over the tense portion of the hematoma. Through this, blunt spreading through the subcutaneous fat releases a cavity with clot. The clot is solid and it requires manual decompression, both superiorly and inferiorly as well as anteriorly and posteriorly. The entirety of the clot is in the subcutaneous space. The fascia is not violated at any point. The total evacuation of the clot measures roughly 500 mL of old blood. There is no active ongoing bleeding that is appreciated. The compartments are soft with no evidence of compartment syndrome either preoperatively or intraoperatively. A pulse lavage was then brought into the field and 3 L of normal saline is pulse irrigated into the wound. It should be noted also that upon immediate evacuation of the clot, culture was taken as the patient did have preoperative signs of cellulitis. The wound was then packed with saline-soaked Kerlix for purposes of hemostasis and wound management. The wound was then dressed with bacitracin and Xeroform, Kerlix, and a 6-inch Jason wrap from the toe to the knee. The foot remains pink and viable at the end of the procedure with good palpable dorsalis pedis pulses. Again, the compartments are all soft and compressible. The patient was awoken from anesthesia, having tolerated the procedure well and transferred to the recovery room without complication. On the operative table, while she is awake, she is noted to be entirely neurovascularly intact. SINDHU MUNROE M.D. [id number]
[2018-05-09 07:30] LABS: BASO % 0.4 % (0-2.0); EOS % 1.2 % (0-4.5); HEMATOCRIT 31.5 % (32.4-45.2); HEMOGLOBIN 10.8 GM/dl (10.7-15.3); LYMPH % 7.2 % (8-40); MCH 32.1 pg (25.7-33.7); MCHC 34.2 g/dl (32.0-36.0); MEAN CELL VOLUME 93.8 fl (80-96); MEAN PLT VOLUME 7.6 fl (7.5-11.1); NEUT % 83.2 % (42.8-82.8); PLATELET COUNT 313 K/MM3 (134-434); RBC 3.36 M/mm3 (3.60-5.2); RDW 12.8 % (11.6-15.6); WHITE BLOOD COUNT 12.6 K/mm3 (4.0-10.8)
[2018-05-09 08:03] LABS: ALBUMIN 2.5 g/dl (3.4-5.0); ALK PHOS 56 U/L (45-117); ANION GAP 7 MMOL/L (8-16); BLOOD UREA NITROGEN 20 mg/dl (7-18); CALCIUM 8.1 mg/dl (8.5-10); CHLORIDE 101 mmol/L (98-107); CO2 26 mmol/L (21-32); CREATININE 1.1 mg/dl (0.55-1.3); GLUCOSE,RANDOM 89 mg/dl (74-106); SGOT/AST 17 U/L (15-37); SGPT/ALT 13 U/L (13-61); SODIUM 134 mmol/L (136-145); TOT PROT 4.7 g/dl (6.4-8.2)
[2018-05-09] MEDS ORDERED: PT OWN MED DRAWER 7, Y5N ONE ×2 (09:09→21:03)
[2018-05-09] MEDS: ALLOPURINOL 100 MG TABLET (FP) PO SCH (09:15)
[2018-05-09] MEDS: CEFTAROLINE FOSAMIL ACETATE 600 MG in DEXTROSE 5%-WATER - 100 ML IVPB SCH ×2 (09:15→21:06)
[2018-05-09] MEDS: amLODIPine BESYLATE 10 MG TABLET (FP) PO SCH (09:16)
[2018-05-09] MEDS: BACITRACIN 0.9 GM PACKET TP SCH (09:16)
--- NOTE | 2018-05-09 16:10 | PN ---
Progress Note, Physician Chief Complaint: leg hematoma History of Present Illness: had OR drainage of calf hematoma today. remains groggy, sleeping--wakes up and speaks but closes eyes quickly. denies palpitations, cp, sob - Current Medication List Current Medications: Active Medications Acetaminophen (Tylenol -) 500 mg PO Q6H PRN PRN Reason: PAIN LEVEL 5-10 Last Admin: 04/30/18 13:00 Dose: 500 mg Allopurinol (Zyloprim -) 100 mg PO DAILY [facility] Last Admin: 05/09/18 09:15 Dose: 100 mg Amlodipine Besylate (Norvasc -) 10 mg PO DAILY [facility] Last Admin: 05/09/18 09:16 Dose: 10 mg Bacitracin (Bacitracin -) 0.9 gm TP DAILY [facility] Last Admin: 05/09/18 09:16 Dose: Not Given Enoxaparin Sodium (Lovenox -) 30 mg SQ DAILY [facility] Ceftaroline Fosamil 600 mg/ (Dextrose) 100 mls @ 200 mls/hr IVPB BID [facility]; Protocol Last Admin: 05/09/18 09:15 Dose: 200 mls/hr Dextrose/Sodium Chloride (D5-1/2ns -) 1,000 mls @ 75 mls/hr IV ASDIR [facility] Last Admin: 05/08/18 18:19 Dose: 75 mls/hr Metoprolol Succinate (Toprol Xl -) 100 mg PO HS [facility] Last Admin: 05/08/18 21:09 Dose: 100 mg Ondansetron HCl (Zofran Injection) 4 mg IVPUSH Q6H PRN PRN Reason: NAUSEA AND/OR VOMITING Oxycodone HCl (Roxicodone -) 5 mg PO Q4H PRN PRN Reason: PAIN LEVEL 1-5 Oxycodone HCl (Roxicodone -) 10 mg PO Q4H PRN PRN Reason: PAIN LEVEL 6-10 Promethazine HCl (Phenergan Injection -) 12.5 mg IVPUSH Q6H PRN PRN Reason: NAUSEA-FOR RESCUE AFTER 15 MIN - Objective Vital Signs: Vital Signs Temperature 98.6 F 05/09/18 14:34 Pulse Rate 74 05/09/18 14:34 Respiratory Rate 19 05/09/18 14:34 Blood Pressure 100/56 L 05/09/18 14:34 O2 Sat by Pulse Oximetry (%) 96 05/09/18 14:34 Constitutional: Yes: No Distress, Calm, Obese Cardiovascular: Yes: Pulse Irregular, S1, S2. No: Gallop, Murmur Respiratory: Yes: Regular, CTA Bilaterally. No: Accessory Muscle Use, Rales, Wheezes Extremities: No: Cold Edema: No (cast LLE) Neurological: Yes: Lethargy. No: Seizure Psychiatric: No: Agitated Labs: CBC, BMP 05/09/18 06:30 05/09/18 06:30 INR, PTT INR 1.28 (0.82-1.09) H 05/08/18 07:00 Assessment/Plan ECG (04/28): afib, normal axis and intervals, NSTWAs persistent Afib: -HR well controlled, continue metoprolol -CHADS VASC 3. on Xarelto 20 qd (note: est GFR on lab report of 44 is based on standardized to normal BSA. using modified CKD-EPI estimated creat clearance with pt's actual BSA, her est clearance is 59 hence this is correct dose) -given concern over hematoma of leg, this may prevent brisk healing of superficial infectious process and/or cause permanent venous insufficiency. cont holding Xarelto to allow healing of traumatic hematoma of leg--resume NOAC when cleared for risk of postop bleeding per surgeon HTN: -controlled -cont home metoprolol, amlodipine LLE hematoma, overlying cellulitis: -abx per ID -had OR drainage of collection by surgery today
[2018-05-09] MEDS ORDERED: ENOXAPARIN NA (PORCINE) 30 MG/0.3 ML DISP.SYRIN SQ SCH (18:05)
[2018-05-09] MEDS: DEXTROSE 5%-0.45% SALINE 1,000 ML IV SCH (18:33)
[2018-05-09] MEDS: ENOXAPARIN NA (PORCINE) 30 MG/0.3 ML DISP.SYRIN SQ SCH (20:55)
--- NOTE | 2018-05-09 22:14 | PN ---
Progress Note, Physician Chief Complaint: no fever, no pain in the left calf s/p fall and hematoma of the left calf and loculated hematoma extraction History of Present Illness: 68 yo female with PMH of Atrial Fibrillation on chronic anticoagulation,with Xarelto, fell in her house, after getting entangled in the strings of a purse. The patient did not hit her head and did not lose consciousness. During her fall she injured her left lower extremity developing an extensive hematoma which affected her left knees,left popliteal area, and left calf . In interim she developed celluilits of the left calf and a 10 cm/10 cm blister filled with serous fluid. A soft tissue ultrasound was performed showing loculated hematomea with pockets of blood, approximately 3 cm. her hematoma was extracted surgically yesterday and the patient tolerated well the procedure. She was able to ambulate this morning for a short distance. - Current Medication List Current Medications: Active Medications Acetaminophen (Tylenol -) 500 mg PO Q6H PRN PRN Reason: PAIN LEVEL 5-10 Last Admin: 04/30/18 13:00 Dose: 500 mg Allopurinol (Zyloprim -) 100 mg PO DAILY [facility] Last Admin: 05/09/18 09:15 Dose: 100 mg Amlodipine Besylate (Norvasc -) 10 mg PO DAILY [facility] Last Admin: 05/09/18 09:16 Dose: 10 mg Bacitracin (Bacitracin -) 0.9 gm TP DAILY [facility] Last Admin: 05/09/18 09:16 Dose: Not Given Enoxaparin Sodium (Lovenox -) 30 mg SQ HS [facility] Last Admin: 05/09/18 20:55 Dose: 30 mg Ceftaroline Fosamil 600 mg/ (Dextrose) 100 mls @ 200 mls/hr IVPB BID [facility]; Protocol Last Admin: 05/09/18 21:06 Dose: 200 mls/hr Dextrose/Sodium Chloride (D5-1/2ns -) 1,000 mls @ 75 mls/hr IV ASDIR [facility] Last Admin: 05/09/18 18:33 Dose: Not Given Metoprolol Succinate (Toprol Xl -) 100 mg PO HS [facility] Last Admin: 05/09/18 21:07 Dose: 100 mg Ondansetron HCl (Zofran Injection) 4 mg IVPUSH Q6H PRN PRN Reason: NAUSEA AND/OR VOMITING Oxycodone HCl (Roxicodone -) 5 mg PO Q4H PRN PRN Reason: PAIN LEVEL 1-5 Oxycodone HCl (Roxicodone -) 10 mg PO Q4H PRN PRN Reason: PAIN LEVEL 6-10 Promethazine HCl (Phenergan Injection -) 12.5 mg IVPUSH Q6H PRN PRN Reason: NAUSEA-FOR RESCUE AFTER 15 MIN - Objective Vital Signs: Vital Signs Temperature 98.6 F 05/09/18 14:34 Pulse Rate 74 05/09/18 14:34 Respiratory Rate 05/09/18 20:26 Blood Pressure 100/56 L 05/09/18 14:34 O2 Sat by Pulse Oximetry (%) 96 05/09/18 20:26 Constitutional: Yes: No Distress, Calm Eyes: Yes: Conjunctiva Clear HENT: Yes: Atraumatic, Normocephalic Neck: Yes: Supple, Trachea Midline Cardiovascular: Yes: Regular Rate and Rhythm Respiratory: Yes: Regular, CTA Bilaterally Gastrointestinal: Yes: Normal Bowel Sounds, Soft, Abdomen, Obese. No: Hepatomegaly, Splenomegaly ...Rectal Exam: Yes: Deferred Extremities: Yes: Other (good capillary refill for both lower etxremities, left calf pain with ambulation) Labs: CBC, BMP 05/09/18 06:30 05/09/18 06:30 INR, PTT INR 1.28 (0.82-1.09) H 05/08/18 07:00 Problem List - Problems (1) Leukocytosis Assessment/Plan: on Ceftaroline, there is no fever, continue monitoring, blood cultures if fever Code(s): D72.829 - ELEVATED WHITE BLOOD CELL COUNT, UNSPECIFIED (2) Hematoma Assessment/Plan: the hematoma was extracted surgically yesterday intermittent ambulation as tolerated will start Lovenox for DVT prophylaxis Xarelto is on hold, serial CBC stable Code(s): T14.8XXA - OTHER INJURY OF UNSPECIFIED BODY REGION, INITIAL ENCOUNTER (3) Fall on same level as cause of accidental injury Assessment/Plan: monitor for compartment syndrome keep left lower extremity elevated ice every 45 minutes for 10 minutes each time while awake Code(s): W18.30XA - FALL ON SAME LEVEL, UNSPECIFIED, INITIAL ENCOUNTER (4) Atrial fibrillation Assessment/Plan: Toprol XL Xarelto was started yesterday and now placed on hold again consult Cardiology on AC with Xarelto and risks evaluation Code(s): I48.91 - UNSPECIFIED ATRIAL FIBRILLATION (5) HTN (hypertension) Assessment/Plan: Continue Toprol and Norvasc Code(s): I10 - ESSENTIAL (PRIMARY) HYPERTENSION (6) Cellulitis of calf Assessment/Plan: Ceftaroline iv the patient has poor iv access and the insertion of a PICC line is recommended to insure proper administration of iv antibiotics contacted IR Code(s): L03.119 - CELLULITIS OF UNSPECIFIED PART OF LIMB (7) Acute blood loss anemia Assessment/Plan: monitor CBC Code(s): D62 - ACUTE POSTHEMORRHAGIC ANEMIA
[2018-05-10 07:57] LABS: BASO % 0.4 % (0-2.0); EOS % 1.6 % (0-4.5); HEMATOCRIT 33.1 % (32.4-45.2); HEMOGLOBIN 10.8 GM/dl (10.7-15.3); LYMPH % 10.3 % (8-40); MCH 30.8 pg (25.7-33.7); MCHC 32.7 g/dl (32.0-36.0); MEAN CELL VOLUME 94.1 fl (80-96); MEAN PLT VOLUME 7.6 fl (7.5-11.1); MONO % 6.9 % (3.8-10.2); NEUT % 80.8 % (42.8-82.8); PLATELET COUNT 328 K/MM3 (134-434); RBC 3.52 M/mm3 (3.60-5.2); RDW 13.1 % (11.6-15.6); WHITE BLOOD COUNT 11.6 K/mm3 (4.0-10.8)
[2018-05-10 08:41] LABS: ALBUMIN 2.5 g/dl (3.4-5.0); ALK PHOS 58 U/L (45-117); ANION GAP 5 MMOL/L (8-16); BLOOD UREA NITROGEN 20 mg/dl (7-18); CALCIUM 8.4 mg/dl (8.5-10); CHLORIDE 106 mmol/L (98-107); CO2 26 mmol/L (21-32); CREATININE 1.2 mg/dl (0.55-1.3); GLUCOSE,RANDOM 97 mg/dl (74-106); POTASSIUM 3.9 mmol/L (3.5-5.1); SGOT/AST 17 U/L (15-37); SGPT/ALT 12 U/L (13-61); SODIUM 137 mmol/L (136-145); TOT PROT 4.8 g/dl (6.4-8.2)
--- NOTE | 2018-05-10 08:51 | PN ---
Progress Note, Physician History of Present Illness: NO C/O LEG PAIN AT REST POD #2 I&D L LE, EVACUATION OF HEMATOMA CULTURES PENDING AFEBRILE WBC REMAINS SLIGHTLY ELEVATED - Current Medication List Current Medications: Active Medications Acetaminophen (Tylenol -) 500 mg PO Q6H PRN PRN Reason: PAIN LEVEL 5-10 Last Admin: 04/30/18 13:00 Dose: 500 mg Allopurinol (Zyloprim -) 100 mg PO DAILY [facility] Last Admin: 05/09/18 09:15 Dose: 100 mg Amlodipine Besylate (Norvasc -) 10 mg PO DAILY [facility] Last Admin: 05/09/18 09:16 Dose: 10 mg Bacitracin (Bacitracin -) 0.9 gm TP DAILY [facility] Last Admin: 05/09/18 09:16 Dose: Not Given Enoxaparin Sodium (Lovenox -) 30 mg SQ HS [facility] Last Admin: 05/09/18 20:55 Dose: 30 mg Ceftaroline Fosamil 600 mg/ (Dextrose) 100 mls @ 200 mls/hr IVPB BID [facility]; Protocol Last Admin: 05/09/18 21:06 Dose: 200 mls/hr Dextrose/Sodium Chloride (D5-1/2ns -) 1,000 mls @ 75 mls/hr IV ASDIR [facility] Last Admin: 05/09/18 18:33 Dose: Not Given Metoprolol Succinate (Toprol Xl -) 100 mg PO HS [facility] Last Admin: 05/09/18 21:07 Dose: 100 mg Ondansetron HCl (Zofran Injection) 4 mg IVPUSH Q6H PRN PRN Reason: NAUSEA AND/OR VOMITING Oxycodone HCl (Roxicodone -) 5 mg PO Q4H PRN PRN Reason: PAIN LEVEL 1-5 Oxycodone HCl (Roxicodone -) 10 mg PO Q4H PRN PRN Reason: PAIN LEVEL 6-10 - Objective Vital Signs: Vital Signs Temperature 98.3 F 05/10/18 06:55 Pulse Rate 76 05/10/18 06:55 Respiratory Rate 19 05/10/18 06:55 Blood Pressure 110/61 05/10/18 06:55 O2 Sat by Pulse Oximetry (%) 98 05/10/18 08:06 Constitutional: Yes: No Distress, Obese Cardiovascular: Yes: Regular Rate and Rhythm, S1, S2 Respiratory: Yes: CTA Bilaterally Gastrointestinal: Yes: Normal Bowel Sounds, Soft Extremities: Yes: Other (L LE REMAINS SWOLLEN, WARM. DECREASED ERYTHEMA. PACKING IN PLACE) Labs: CBC, BMP 05/10/18 07:10 INR, PTT INR 1.28 (0.82-1.09) H 05/08/18 07:00 Assessment/Plan CELLULITIS L LE IMPROVED POD#2 I&D, EVACUATION OF HEMATOMA PCN ALLERGY CONTINUE CEFTAROLINE ELEVATION
[2018-05-10] MEDS ORDERED: PT OWN MED DRAWER 7, Y5N ONE ×2 (09:10→21:05)
[2018-05-10] MEDS: ALLOPURINOL 100 MG TABLET (FP) PO SCH (09:50)
[2018-05-10] MEDS: CEFTAROLINE FOSAMIL ACETATE 600 MG in DEXTROSE 5%-WATER - 100 ML IVPB SCH ×2 (09:51→21:08)
[2018-05-10] MEDS: BACITRACIN 0.9 GM PACKET TP SCH (09:51)
[2018-05-10] MEDS: amLODIPine BESYLATE 10 MG TABLET (FP) PO SCH (09:51)
--- NOTE | 2018-05-10 17:42 | PN ---
Progress Note (short form) - Note Progress Note: Pt seen today and dressing changed with the nursing staff. She is OOB to chair with legs elevated. Vital Signs Period Temp Pulse Resp BP Sys/Oakes Pulse Ox Last 24 Hr 98.2 F-99.2 F 70-82 16-19 103-114/60-62 95-98 LLE: Dressing removed, wound repacked with wet kerlix. Measurements taken today with the nurses regarding the depth. It extends medially 6cm and superiorly 7cm , no inferior undermining. Wound approx 3 cm deep. The undermined area extends medially from wound edge. The superfical tissue has sloughed off, the skin edges appear to be viable. Xeroform, kerlix and surya wrap reapplied. Foot is warm with +2 DP pulse CBC, BMP 05/10/18 07:10 05/10/18 07:10 Wound culture: no growth to date A/P: 68 yo female s/p LLE debriement and evacuation of hematoma. Continue IV abx as per ID Local wound care daily with kerlix/wet to dry Pain management as needed OOB and ambulate
[2018-05-10] MEDS: ENOXAPARIN NA (PORCINE) 30 MG/0.3 ML DISP.SYRIN SQ SCH (21:09)
--- NOTE | 2018-05-10 21:50 | PN ---
Progress Note, Physician Chief Complaint: no fever, no pain in the left calf s/p fall and hematoma of the left calf and loculated hematoma extraction History of Present Illness: 68 yo female with PMH of Atrial Fibrillation on chronic anticoagulation,with Xarelto, fell in her house, after getting entangled in the strings of a purse. The patient did not hit her head and did not lose consciousness. During her fall she injured her left lower extremity developing an extensive hematoma which affected her left knees,left popliteal area, and left calf . In interim she developed celluilits of the left calf and a 10 cm/10 cm blister filled with serous fluid. A soft tissue ultrasound was performed showing loculated hematomea with pockets of blood, approximately 3 cm. her hematoma was extracted surgically and the patient tolerated well the procedure. She was able to ambulate this morning for a short distance. - Current Medication List Current Medications: Active Medications Allopurinol (Zyloprim -) 100 mg PO DAILY [facility] Last Admin: 05/10/18 09:50 Dose: 100 mg Amlodipine Besylate (Norvasc -) 10 mg PO DAILY [facility] Last Admin: 05/10/18 09:51 Dose: 10 mg Bacitracin (Bacitracin -) 0.9 gm TP DAILY [facility] Last Admin: 05/10/18 09:51 Dose: Not Given Enoxaparin Sodium (Lovenox -) 30 mg SQ HS [facility] Last Admin: 05/10/18 21:09 Dose: 30 mg Ceftaroline Fosamil 600 mg/ (Dextrose) 100 mls @ 200 mls/hr IVPB BID [facility]; Protocol Last Admin: 05/10/18 21:08 Dose: 200 mls/hr Metoprolol Succinate (Toprol Xl -) 100 mg PO HS [facility] Last Admin: 05/10/18 21:10 Dose: 100 mg Ondansetron HCl (Zofran Injection) 4 mg IVPUSH Q6H PRN PRN Reason: NAUSEA AND/OR VOMITING Oxycodone/Acetaminophen (Percocet 5/325 -) 1 combo PO Q8H PRN PRN Reason: PAIN LEVEL 4-6 Last Admin: 05/10/18 14:49 Dose: 1 combo - Objective Vital Signs: Vital Signs Temperature 98.1 F 05/10/18 18:00 Pulse Rate 73 05/10/18 18:00 Respiratory Rate 18 05/10/18 19:47 Blood Pressure 102/50 L 05/10/18 18:00 O2 Sat by Pulse Oximetry (%) 96 05/10/18 19:47 Constitutional: Yes: No Distress, Calm Eyes: Yes: Conjunctiva Clear, EOM Intact HENT: Yes: Atraumatic, Normocephalic Neck: Yes: Supple, Trachea Midline Cardiovascular: Yes: Regular Rate and Rhythm, S1, S2 Gastrointestinal: Yes: Normal Bowel Sounds, Soft, Abdomen, Obese. No: Hepatomegaly, Splenomegaly Extremities: No: Calf Tenderness Edema: Yes Edema: LLE: 1+, RLE: 1+ Integumentary: Yes: Other (could not evaluate wound) Wound/Incision: Yes: Other ([pst extracted heatoma of the left thigh) Neurological: Yes: Alert, Oriented Psychiatric: Yes: Alert, Oriented Labs: CBC, BMP 05/10/18 07:10 05/10/18 07:10 INR, PTT INR 1.28 (0.82-1.09) H 05/08/18 07:00 Problem List - Problems (1) Leukocytosis Assessment/Plan: on Ceftaroline, there is no fever, continue monitoring, blood cultures if fever WBc is decreasing Code(s): D72.829 - ELEVATED WHITE BLOOD CELL COUNT, UNSPECIFIED (2) Hematoma Assessment/Plan: the hematoma was extracted surgically yesterday intermittent ambulation as tolerated will start Lovenox for DVT prophylaxis Xarelto is on hold, serial CBC stable (3) Fall on same level as cause of accidental injury Assessment/Plan: keep left lower extremity elevated Code(s): W18.30XA - FALL ON SAME LEVEL, UNSPECIFIED, INITIAL ENCOUNTER (4) Atrial fibrillation Assessment/Plan: Toprol XL off Xarelto Code(s): I48.91 - UNSPECIFIED ATRIAL FIBRILLATION (5) HTN (hypertension) Assessment/Plan: Continue Toprol and Norvasc Code(s): I10 - ESSENTIAL (PRIMARY) HYPERTENSION (6) Cellulitis of calf Assessment/Plan: overall improving but still on Ceftaroline iv the patient has poor iv access and the insertion of a PICC line is recommended to insure proper administration of iv antibiotics contacted IR Code(s): L03.119 - CELLULITIS OF UNSPECIFIED PART OF LIMB (7) Acute blood loss anemia Assessment/Plan: monitor CBC Code(s): D62 - ACUTE POSTHEMORRHAGIC ANEMIA
[2018-05-11] MEDS ORDERED: PT OWN MED DRAWER 7, Y5N ONE ×2 (10:08→21:36)
[2018-05-11] MEDS: BACITRACIN 0.9 GM PACKET TP SCH (10:14)
[2018-05-11] MEDS: amLODIPine BESYLATE 10 MG TABLET (FP) PO SCH (10:15)
[2018-05-11] MEDS: CEFTAROLINE FOSAMIL ACETATE 600 MG in DEXTROSE 5%-WATER - 100 ML IVPB SCH ×2 (10:15→21:42)
[2018-05-11] MEDS: ALLOPURINOL 100 MG TABLET (FP) PO SCH (10:15)
--- NOTE | 2018-05-11 14:12 | PN ---
Progress Note (short form) - Note Progress Note: POD#3 Pt states that overall there is decreased swelling to her leg. Vital Signs Period Temp Pulse Resp BP Sys/Oakes Pulse Ox Last 24 Hr 98.1 F-98.4 F 69-77 16-18 100-117/46-60 94-96 GEN: A&0x3, NAD. OOB to chair Left leg: Packing removed. No drainage or foul odor noted. Repacked with wet to dry kerlix today, xeroform, dry dressing and surya wrap. Skin edges remain viable , small ischemic area near superior aspect(size 1/2 cm x 1/2 cm) of incision. Overall less edematous, ecchymosis unchanged and the tissues are soft. +2 DP pulse. CBC, BMP 05/10/18 07:10 05/10/18 07:10 Microbiology 05/08/18 15:55 Leg - Left Lower Gram Stain - Final 05/08/18 15:55 Leg - Left Lower Wound Culture - Final NO GROWTH AFTER 48 HOURS INCUBATION 05/08/18 15:55 Leg - Left Lower Gram Stain - Final 04/30/18 15:30 Aspirate Gram Stain - Final 04/30/18 15:30 Aspirate Anaerobic Culture - Final NO GROWTH OF AEROBIC ORGANISMS AFTER 48 HOURS INCUBATION NO ANAEROBES WERE ISOLATED 05/08/18 15:55 Leg - Left Lower Wound Culture - Preliminary NO GROWTH OBTAINED AFTER 24 HOURS INCUBATION, REINCUBATED. A/P: 68 yo female s/p LLE evacuation of hematoma and debridment Doing well surgically, awiting possible VAC placment Xarelto on hold, lovenox 30 mg SQ daily(DVT ppx) Continue to ambulate, elevate left leg D/w Dr. Lagunas and will order wound VAC to be placed
--- NOTE | 2018-05-11 15:19 | PN ---
Progress Note (short form) - Note Progress Note: [facility] *LIVE* Chief Complaint: leg hematoma History of Present Illness: complains of leg pain after dressing change. no chest pain, palps, dyspnea. Current Medications Allopurinol (Zyloprim -) 100 mg PO DAILY [facility] Last Admin: 05/11/18 10:15 Dose: 100 mg Amlodipine Besylate (Norvasc -) 10 mg PO DAILY [facility] Last Admin: 05/11/18 10:15 Dose: 10 mg Bacitracin (Bacitracin -) 0.9 gm TP DAILY [facility] Last Admin: 05/11/18 10:14 Dose: 0.9 gm Enoxaparin Sodium (Lovenox -) 30 mg SQ HS [facility] Last Admin: 05/10/18 21:09 Dose: 30 mg Ceftaroline Fosamil 600 mg/ (Dextrose) 100 mls @ 200 mls/hr IVPB BID [facility]; Protocol Last Admin: 05/11/18 10:15 Dose: 200 mls/hr Metoprolol Succinate (Toprol Xl -) 100 mg PO HS [facility] Last Admin: 05/10/18 21:10 Dose: 100 mg Ondansetron HCl (Zofran Injection) 4 mg IVPUSH Q6H PRN PRN Reason: NAUSEA AND/OR VOMITING Oxycodone/Acetaminophen (Percocet 5/325 -) 1 combo PO Q8H PRN PRN Reason: PAIN LEVEL 4-6 Last Admin: 05/11/18 11:07 Dose: 1 combo - Objective Vital Signs Period Temp Pulse Resp BP Sys/Oakes Pulse Ox Last 24 Hr 97.8 F-98.3 F 69-76 16-19 91-117/46-54 94-96 Constitutional: Yes: No Distress, Calm, Obese Cardiovascular: Yes: Pulse Irregular, S1, S2. No: Gallop, Murmur Respiratory: Yes: Regular, CTA Bilaterally. No: Accessory Muscle Use, Rales, Wheezes Extremities: No: Cold Edema: No (cast LLE) Neurological: Yes: Lethargy. No: Seizure Psychiatric: No: Agitated Assessment/Plan ECG (04/28): afib, normal axis and intervals, NSTWAs persistent Afib: -HR well controlled, continue metoprolol -CHADS VASC 3. on Xarelto 20 qd (note: est GFR on lab report of 44 is based on standardized to normal BSA. using modified CKD-EPI estimated creat clearance with pt's actual BSA, her est clearance is 59 hence this is correct dose) -given concern over hematoma of leg, this may prevent brisk healing of superficial infectious process and/or cause permanent venous insufficiency. - cont holding Xarelto to allow healing of traumatic hematoma of leg--resume NOAC when cleared for risk of postop bleeding per surgeon HTN: -controlled -cont home metoprolol, amlodipine LLE hematoma, overlying cellulitis: -abx per ID -had OR drainage of collection by surgery on Tuesday
--- NOTE | 2018-05-11 20:07 | PN ---
Progress Note (short form) - Note Progress Note: wound debrided Cellulitis resolved by my exam OK for vac application tomorrow VNS to change VAC on leg 3x/week may ambulate and weight bear keep leg elevated when in bed cannot wet the dressing but the patient may shower when the vac is removed by the nurse at dressing change time. otherwise sponge bathe only. f/u louisa 2 weeks
--- NOTE | 2018-05-11 21:09 | OP ---
DATE OF OPERATION: 05/11/2018 TITLE OF PROCEDURE: Excisional sharp debridement of left leg wound. PREOPERATIVE DIAGNOSES: Left leg wound, status post evacuation of hematoma with skin necrosis and soft tissue fat necrosis. ATTENDING SURGEON: Sindhu Munroe MD MONITOR TECHNICIAN: None. ANESTHESIA: None. The patient is counseled on all risks, benefits, alternatives to the procedure; understands and agrees to proceed. The procedure is as follows: The leg is prepped and draped in standard surgical fashion, after which a 10 blade scalpel and forceps were used to debride away the devitalized, discolored skin until viable, bleeding skin is achieved. The wound is packed with wet-to-dry dressings. It is then dressed with 4x4 gauze and an Jason wrap. Hemostasis is achieved. The patient is given the okay to apply VAC suction dressing tomorrow. SINDHU MUNROE M.D. [id number]
--- NOTE | 2018-05-11 21:11 | PN ---
Progress Note, Physician Chief Complaint: left lower extremity less edematous, was able to ambulate, no bleeding History of Present Illness: 68 yo female with PMH of Atrial Fibrillation on chronic anticoagulation,with Xarelto, s/p fall and extensive hematoma of the left calf. Her hematoma was extracted surgically and the patient tolerated well the procedure. She was able to ambulate this morning for a short distance. Currently the patient is receiving Lovenox prophylactic dose for DVT prophylaxis and continues to receive IV antibiotics. - Current Medication List Current Medications: Active Medications Allopurinol (Zyloprim -) 100 mg PO DAILY [facility] Last Admin: 05/11/18 10:15 Dose: 100 mg Amlodipine Besylate (Norvasc -) 10 mg PO DAILY [facility] Last Admin: 05/11/18 10:15 Dose: 10 mg Bacitracin (Bacitracin -) 0.9 gm TP DAILY [facility] Last Admin: 05/11/18 10:14 Dose: 0.9 gm Enoxaparin Sodium (Lovenox -) 30 mg SQ HS [facility] Last Admin: 05/10/18 21:09 Dose: 30 mg Ceftaroline Fosamil 600 mg/ (Dextrose) 100 mls @ 200 mls/hr IVPB BID [facility]; Protocol Last Admin: 05/11/18 10:15 Dose: 200 mls/hr Metoprolol Succinate (Toprol Xl -) 100 mg PO HS [facility] Last Admin: 05/10/18 21:10 Dose: 100 mg Ondansetron HCl (Zofran Injection) 4 mg IVPUSH Q6H PRN PRN Reason: NAUSEA AND/OR VOMITING Oxycodone/Acetaminophen (Percocet 5/325 -) 1 combo PO Q8H PRN PRN Reason: PAIN LEVEL 4-6 Last Admin: 05/11/18 11:07 Dose: 1 combo - Objective Vital Signs: Vital Signs Temperature 98.3 F 05/11/18 18:44 Pulse Rate 74 05/11/18 18:44 Respiratory Rate 20 05/11/18 18:44 Blood Pressure 109/44 L 05/11/18 18:44 O2 Sat by Pulse Oximetry (%) 96 05/11/18 20:37 Constitutional: Yes: No Distress, Calm Eyes: Yes: Conjunctiva Clear, EOM Intact HENT: Yes: Atraumatic, Normocephalic Neck: Yes: Supple, Trachea Midline Cardiovascular: Yes: Regular Rate and Rhythm, S1, S2 Respiratory: Yes: Regular, CTA Bilaterally. No: SOB Gastrointestinal: Yes: Normal Bowel Sounds, Abdomen, Obese. No: Hepatomegaly, Splenomegaly ...Rectal Exam: Yes: Guaiac Negative Extremities: No: Calf Tenderness Edema: Yes Edema: LLE: 1+ Peripheral Pulses WNL: Yes Peripheral Pulses: Left Doralis Pedis: 1+, Right Dorsalis Pedis: 1+ Integumentary: Yes: Other (erytheam of jeremías left anterior hernandez, wound not packed , no inflammation) Wound/Incision: Yes: Other (dressing present and not removed, no increased bleeding) Neurological: Yes: Alert, Oriented Psychiatric: Yes: Alert, Oriented Labs: CBC, BMP 05/10/18 07:10 05/10/18 07:10 INR, PTT INR 1.28 (0.82-1.09) H 05/08/18 07:00 Problem List - Problems (1) Leukocytosis Assessment/Plan: on Ceftaroline, there is no fever, continue monitoring, blood cultures if fever repeat WBc in am Code(s): D72.829 - ELEVATED WHITE BLOOD CELL COUNT, UNSPECIFIED (2) Hematoma Assessment/Plan: the hematoma was extracted surgically intermittent ambulation as tolerated Lovenox for DVT prophylaxis Xarelto is still on hold, CBC in am (3) Fall on same level as cause of accidental injury Assessment/Plan: keep left lower extremity elevated Code(s): W18.30XA - FALL ON SAME LEVEL, UNSPECIFIED, INITIAL ENCOUNTER (4) Atrial fibrillation Assessment/Plan: Toprol XL Xarelto on hold and will restart in 48 hours Code(s): I48.91 - UNSPECIFIED ATRIAL FIBRILLATION (5) HTN (hypertension) Assessment/Plan: Continue Toprol and Norvasc Code(s): I10 - ESSENTIAL (PRIMARY) HYPERTENSION (6) Cellulitis of calf Assessment/Plan: overall improving but still on Ceftaroline iv the patient has poor iv access and the insertion of a PICC line is recommended to insure proper administration of iv antibiotics contacted IR Code(s): L03.119 - CELLULITIS OF UNSPECIFIED PART OF LIMB (7) Acute blood loss anemia Assessment/Plan: monitor CBC Code(s): D62 - ACUTE POSTHEMORRHAGIC ANEMIA
[2018-05-11] MEDS: ENOXAPARIN NA (PORCINE) 30 MG/0.3 ML DISP.SYRIN SQ SCH (21:41)
[2018-05-12 06:39] VITALS: BP 110/47; PULSE 71; TEMP 98.3
[2018-05-12 07:57] LABS: BASO % 0.4 % (0-2.0); EOS % 4.3 % (0-4.5); HEMATOCRIT 33.2 % (32.4-45.2); HEMOGLOBIN 10.6 GM/dl (10.7-15.3); LYMPH % 10.9 % (8-40); MCH 30.2 pg (25.7-33.7); MEAN CELL VOLUME 94.5 fl (80-96); MEAN PLT VOLUME 7.6 fl (7.5-11.1); MONO % 9.9 % (3.8-10.2); NEUT % 74.5 % (42.8-82.8); PLATELET COUNT 344 K/MM3 (134-434); RBC 3.51 M/mm3 (3.60-5.2); RDW 13.4 % (11.6-15.6); WHITE BLOOD COUNT 9.8 K/mm3 (4.0-10.8)
--- NOTE | 2018-05-12 08:48 | DS ---
Physical Examination Vital Signs: Vital Signs Temperature 98.3 F 05/12/18 06:38 Pulse Rate 71 05/12/18 06:38 Respiratory Rate 18 05/12/18 08:24 Blood Pressure 110/47 L 05/12/18 06:38 O2 Sat by Pulse Oximetry (%) 96 05/12/18 08:24 Constitutional: Yes: Well Nourished Eyes: Yes: Conjunctiva Clear, EOM Intact HENT: Yes: Atraumatic, Normocephalic Neck: Yes: Supple, Trachea Midline Cardiovascular: Yes: Regular Rate and Rhythm Respiratory: Yes: Regular, CTA Bilaterally Gastrointestinal: Yes: Normal Bowel Sounds, Soft, Abdomen, Obese Musculoskeletal: Yes: Other (wound of the left calf, packed, not examined today) Extremities: Yes: Calf Tenderness (left) Edema: LLE: Trace Peripheral Pulses WNL: Yes Integumentary: Yes: Other (decreased erythema of the left hernandez, decreased local temperature as per my examintaion from 05/11/18, improved overall edema) Neurological: Yes: Alert, Oriented ...Motor Strength: WNL Psychiatric: Yes: Alert, Oriented Labs: CBC, BMP 05/12/18 07:12 05/10/18 07:10 Discharge Summary Reason For Visit: HEMATOMA Current Active Problems Acute blood loss anemia (Acute) Atrial fibrillation (Acute) Cellulitis of calf (Acute) Fall on same level as cause of accidental injury (Acute) HTN (hypertension) (Acute) Hematoma (Acute) Leukocytosis (Acute) Open wound of left lower leg (Acute) Other Procedures: iv antibiotics, hematoma OR evacuation, wound care Hospital Course: 68 yo female admitted for hematoma of the left calf , had evacuation of the hematoma during her stay the patient received iv antibiotics she will be discharged tof=day with wound vac care form [facility] she will restart Xarelto tomorrow evening at a dose of 20 mg daily follow up with Dr. Lagunas in 2 weeks possible discharge with oral antibiotics as per ID Condition: Stable - Instructions Referrals: Radha Chapin MD [Primary Care Provider] - - Home Medications Comprehensive Discharge Medication List: Ambulatory Orders Calcium 250Mg/Vit-D 125 Units [Oscal 250 mg+D -] 2 each PO DAILY 06/18/12 Allopurinol [Zyloprim -] 100 mg PO DAILY 04/28/18 Metoprolol Succinate [Toprol Xl] 100 mg PO HS 04/28/18 Rivaroxaban [Xarelto -] 20 mg PO DAILY 04/28/18 Allopurinol [Zyloprim -] 100 mg PO DAILY tablet 05/11/18 Amlodipine Besylate [Norvasc -] 10 mg PO DAILY tablet 05/11/18 Metoprolol Succinate [Toprol XL -] 100 mg PO HS tab.sr.24h 05/11/18 Oxycodone HCl/Acetaminophen [Percocet 5-325 mg Tablet] 1 combo PO Q8H PRN #20 tablet MDD 3 05/11/18
[2018-05-12] MEDS ORDERED: PT OWN MED DRAWER 7, Y5N ONE ×2 (09:06→09:46)
[2018-05-12] MEDS: ALLOPURINOL 100 MG TABLET (FP) PO SCH (09:22)
[2018-05-12] MEDS: CEFTAROLINE FOSAMIL ACETATE 600 MG in DEXTROSE 5%-WATER - 100 ML IVPB SCH (09:22)
[2018-05-12] MEDS: amLODIPine BESYLATE 10 MG TABLET (FP) PO SCH (09:22)
[2018-05-12] MEDS: BACITRACIN 0.9 GM PACKET TP SCH (09:23)
--- NOTE | 2018-05-12 09:30 | PN ---
Progress Note (short form) - Note Progress Note: ID CONSULT DICTATED CELLULITIS L LE HEMATOMA L LE S/P FALL PCN ALLERGY ADD VANCOMYCIN ELEVATION/ ANALGESICS
--- NOTE | 2018-05-12 09:57 | PN ---
Progress Note, Physician History of Present Illness: NO C/O LEG PAIN AT REST POST OP I&D L LE, EVACUATION OF HEMATOMA CULTURES NEGATIVE AFEBRILE WBC IMPROVED WNL - Current Medication List Current Medications: Active Medications Allopurinol (Zyloprim -) 100 mg PO DAILY [facility] Last Admin: 05/12/18 09:22 Dose: 100 mg Amlodipine Besylate (Norvasc -) 10 mg PO DAILY [facility] Last Admin: 05/12/18 09:22 Dose: 10 mg Bacitracin (Bacitracin -) 0.9 gm TP DAILY [facility] Last Admin: 05/12/18 09:23 Dose: 0.9 gm Enoxaparin Sodium (Lovenox -) 30 mg SQ HS [facility] Last Admin: 05/11/18 21:41 Dose: 30 mg Ceftaroline Fosamil 600 mg/ (Dextrose) 100 mls @ 200 mls/hr IVPB BID [facility]; Protocol Last Admin: 05/12/18 09:22 Dose: 200 mls/hr Metoprolol Succinate (Toprol Xl -) 100 mg PO HS [facility] Last Admin: 05/11/18 21:42 Dose: 100 mg Ondansetron HCl (Zofran Injection) 4 mg IVPUSH Q6H PRN PRN Reason: NAUSEA AND/OR VOMITING Oxycodone/Acetaminophen (Percocet 5/325 -) 1 combo PO Q8H PRN PRN Reason: PAIN LEVEL 4-6 Last Admin: 05/11/18 11:07 Dose: 1 combo - Objective Vital Signs: Vital Signs Temperature 98.3 F 05/12/18 06:38 Pulse Rate 71 05/12/18 06:38 Respiratory Rate 18 05/12/18 08:24 Blood Pressure 110/47 L 05/12/18 06:38 O2 Sat by Pulse Oximetry (%) 96 05/12/18 08:24 Constitutional: Yes: No Distress Eyes: Yes: Conjunctiva Clear Cardiovascular: Yes: Regular Rate and Rhythm Respiratory: Yes: CTA Bilaterally Gastrointestinal: Yes: Normal Bowel Sounds, Soft. No: Tenderness Extremities: Yes: Other (DECREASED ERYTHEMA L LE; LATERAL WOUND PACKED; + ECCYMOSIS) Labs: CBC, BMP 05/12/18 07:12 05/10/18 07:10 INR, PTT INR 1.28 (0.82-1.09) H 03/18/19 07:00 Assessment/Plan CELLULITIS L LE IMPROVED POST OP I&D, EVACUATION OF HEMATOMA C/S NEGATIVE PCN ALLERGY SUBSTITUTE KEFLEX 500MG PO QID X 14D OUTPATIENT SURGICAL FOLLOW UP
[2018-05-12] MEDS ORDERED: CEPHALEXIN MONOHYDRATE 500 MG CAPSULE (UD) PO SCH (12:00)
== END 2018-05-12 14:40 | disposition home or self-care (01) | DRG 571 ==
LOC: FER 12:17 → FM/S 17:22 → UNDOADMOB 04-29 00:01 → OBSVTOIN 04-30 15:03
PROVIDERS: ADMIT Internal Medicine; ATTEND Internal Medicine
PROC: 0JCP0ZZ Extirpation of Matter from Left Lower Leg Subcutaneous Tissue and Fascia, Open Approach (ICD-10-PCS; principal; 2018-05-08 15:51)
PROC: 0JBP0ZZ Excision of Left Lower Leg Subcutaneous Tissue and Fascia, Open Approach (ICD-10-PCS; 2018-05-11)
PROC: 0JDM0ZZ Extraction of Left Upper Leg Subcutaneous Tissue and Fascia, Open Approach (ICD-10-PCS; 2018-05-11)
PROC: 3E10X8Z Irrigation of Skin and Mucous Membranes using Irrigating Substance (ICD-10-PCS; 2018-05-11)
DX: S80.12XA Contusion of left lower leg, initial encounter (principal); Z68.43 Body mass index [BMI] 50.0-59.9, adult; D62 Acute posthemorrhagic anemia; L03.119 Cellulitis of unspecified part of limb; I48.1 Persistent atrial fibrillation; E66.01 Morbid (severe) obesity due to excess calories; I10 Essential (primary) hypertension; S81.802A Unspecified open wound, left lower leg, initial encounter; D72.829 Elevated white blood cell count, unspecified; Z88.0 Allergy status to penicillin; Z79.01 Long term (current) use of anticoagulants; Y92.098 Other place in other non-institutional residence as the place of occurrence of the external cause; W01.0XXA Fall on same level from slipping, tripping and stumbling without subsequent striking against object, initial encounter
CPT/HCPCS: 36415; 70450-TC; 73562-TC-LT-FY; 73590-TC-LT-FY; 73610-TC-LT-FY; 76882-TC-RT-FY; 80053; 82550; 83036; 84484; 85025; 85027; 85610; 87070; 87075; 87205; 93005; 94760; 97116-GP; 97162-GP; 99284-25; G0378; G0480

== ENCOUNTER 2019-02-24 17:18 | Inpatient (IN) | payer OTHER ==
--- NOTE | 2019-02-24 17:22 | PDOC ---
History of Present Illness - General Chief Complaint: Respiratory Stated Complaint: COUGH Time Seen by Provider: 02/24/19 17:19 History Source: Patient - History of Present Illness Initial Comments: 02/24/19 17:52 Ms. Sullivan is a 69 y/o woman w/hx HTN, HLD, afib on xarelto p/w one week of shortness of breath, chills, chest tightness, and wheezing. She reports seeing her PCP today for these symptoms and was given a nebulizer treatment in the office which alleviated some of the breathing discomfort. She was sent for chest x-ray and was told to present to the ED after it was read with concern for bilateral pneumonia. She reports chills at home alongside generalized malaise and fatigue, as well as worsening shortness of breath. She denies any swelling in the lower extremities. Past History - Past Medical History Allergies/Adverse Reactions: Allergies Allergy/AdvReac Type Severity Reaction Status Date / Time Penicillins Allergy Verified 02/24/19 18:31 Home Medications: Ambulatory Orders Metoprolol Succinate [Toprol Xl] 100 mg PO HS 04/28/18 Rivaroxaban [Xarelto -] 20 mg PO HS 04/28/18 Allopurinol [Zyloprim -] 100 mg PO DAILY tablet 05/11/18 Amlodipine Besylate [Norvasc -] 10 mg PO DAILY tablet 05/11/18 Cholecalciferol (Vitamin D3) [Vitamin D3] 2,000 unit PO DAILY 02/24/19 Cardiac Disorders: (A.FIB ON XERALTA) COPD: No Disorders: Yes (R kidney atrophy) HTN: Yes - Psycho Social/Smoking Cessation Hx Smoking Status: No Smoking History: Never smoked Have you smoked in the past 12 months: No Number of Cigarettes Smoked Daily: 0 Hx Alcohol Use: No Drug/Substance Use Hx: No Review of Systems - Review of Systems Able to Perform ROS?: Yes Comments:: 02/24/19 17:57 ROS: GENERAL/CONSTITUTIONAL: Chills, weakness. No fever HEAD, EYES, EARS, NOSE AND THROAT: No change in vision. No ear pain or discharge. No sore throat. CARDIOVASCULAR: Shortness of breath. No chest pain RESPIRATORY: Cough, wheezing. No hemoptysis. GASTROINTESTINAL: No nausea, vomiting, diarrhea or constipation. GENITOURINARY: No dysuria, frequency, or change in urination. MUSCULOSKELETAL: No joint or muscle swelling or pain. No neck or back pain. SKIN: No rash NEUROLOGIC: No headache, vertigo, loss of consciousness, or change in strength/ sensation. ENDOCRINE: No increased thirst. No abnormal weight change HEMATOLOGIC/LYMPHATIC: No anemia, easy bleeding, or history of blood clots. ALLERGIC/IMMUNOLOGIC: No hives or skin allergy. *Physical Exam - Physical Exam 02/24/19 17:58 PE: GENERAL: Awake, alert, and fully oriented, mild distress HEAD: No signs of trauma, normocephalic, atraumatic EYES: PERRLA, EOMI, sclera anicteric, conjunctiva clear ENT: Auricles normal inspection, hearing grossly normal, nares patent, oropharynx clear without exudates. Moist mucosa NECK: Normal ROM, supple, no lymphadenopathy, JVD, or masses LUNGS: Diffuse wheezing throughout both lungs. Speaks full sentences HEART: Regular rate and rhythm, normal S1 and S2, no murmurs, rubs or gallops, peripheral pulses normal and equal bilaterally. ABDOMEN: Soft, nontender, normoactive bowel sounds. No guarding, no rebound. No masses EXTREMITIES : Normal inspection, Normal range of motion, no edema. No clubbing or cyanosis NEUROLOGICAL: Cranial nerves II through XII grossly intact. Normal speech, normal gait, no focal sensorimotor deficits SKIN: Warm, Dry, normal turgor, no rashes or lesions noted ED Treatment Course - LABORATORY CBC & Chemistry Diagram: 02/24/19 18:04 02/24/19 18:04 Medical Decision Making - Medical Decision Making 02/24/19 17:59 69F w/hx HTN, afib on xarelto p/w one week of ongoing sob, wheezing, chills, generalized malaise, sent by PCP with concern for pneumonia. Reactive airway disease also possible given diffuse wheezing on exam. Plan: CBC CMP Cardiac profile EKG CXR Ceftriaxone 1g Azithromycin 500 mg 1L IV LR Blood cultures x2 Dispo: Admit Discharge - Discharge Information Problems reviewed: Yes Clinical Impression/Diagnosis: Pneumonia Qualifiers: Pneumonia type: due to unspecified organism Laterality: unspecified laterality Lung location: unspecified part of lung Qualified Code(s): J18.9 - Pneumonia, unspecified organism Condition: Stable - Admission Yes - Follow up/Referral Referrals: Radha Chapin MD [Primary Care Provider] - - Patient Discharge Instructions - Post Discharge Activity
[2019-02-24] MEDS ORDERED: CEFTRIAXONE 1,000 MG in DEXTROSE 5%-WATER - 50 ML IVPB ONE (17:47)
[2019-02-24] MEDS ORDERED: ALBUTEROL SO4 2.5/IPRATROPIUM 0.5 INH SOL 3 ML VIAL.NEB. NEB ONE ×2 (17:47→18:08)
[2019-02-24] MEDS ORDERED: AZITHROMYCIN IVPB 500 MG in DEXTROSE 5%-WATER - 250 ML IVPB ONE (17:51)
[2019-02-24] MEDS ORDERED: AZITHROMYCIN 500 MG VIAL IVPB ONE (18:08)
[2019-02-24] MEDS ORDERED: cefTRIAXone SODIUM 1 GM VIAL ONE (18:08)
--- NOTE | 2019-02-24 18:15 | PDOC ---
Attending Attestation - Resident Resident Name: Domingo Disla - ED Attending Attestation I have performed the following: I have examined & evaluated the patient, The case was reviewed & discussed with the resident, I agree w/resident's findings & plan, Exceptions are as noted - HPI HPI: 02/24/19 18:12 69 F with h/o HTN, HLD, afib on xarelto, presenting with cough, SOB, chest tightness, chills. Pt states her symptoms started 1 week ago. Denies fevers. Denies chest pain. Pt was seen by Dr. Chapin today who obtained CXR revealing bilateral PNA. - Physicial Exam PE: 02/24/19 18:13 "GENERAL: Awake, alert, and fully oriented, in no acute distress. HEAD: No signs of trauma EYES: PERRLA, EOMI, sclera anicteric, conjunctiva clear ENT: Auricles normal inspection, hearing grossly normal, nares patent, oropharynx clear without exudates. Moist mucosa NECK: Nontender, no stepoffs, Normal ROM, supple, no lymphadenopathy, JVD, or masses LUNGS: + bilateral wheezes HEART: Regular rate and rhythm, normal S1 and S2, no murmurs, rubs or gallops ABDOMEN: Soft, nontender, normoactive bowel sounds. No guarding, no rebound. No masses EXTREMITIES: Normal range of motion, no edema. No clubbing or cyanosis. No cords, erythema, or tenderness NEUROLOGICAL: Cranial nerves II through XII intact. 5/5 strength and sensation in all extremities, Normal speech, normal gait, normal cerebellar function SKIN: Warm, Dry, normal turgor, no rashes or lesions noted. - Medical Decision Making 02/24/19 18:14 69 F with cough, chills, SOB. Found to have bilateral PNA. - labs, cultures - Nebulizer - Ceftriaxone + azithro
[2019-02-24 18:30] LABS: BASO % 0.2 % (0-2.0); EOS % 1.6 % (0-4.5); HEMATOCRIT 44.1 % (32.4-45.2); HEMOGLOBIN 14.9 GM/dl (10.7-15.3); LYMPH % 14.7 % (8-40); MCH 31.6 pg (25.7-33.7); MCHC 33.8 g/dl (32.0-36.0); MEAN CELL VOLUME 93.5 fl (80-96); MEAN PLT VOLUME 7.8 fl (7.5-11.1); MONO % 9.8 % (3.8-10.2); NEUT % 73.7 % (42.8-82.8); PLATELET COUNT 184 K/MM3 (134-434); RBC 4.72 M/mm3 (3.60-5.2); RDW 14.3 % (11.6-15.6); WHITE BLOOD COUNT 7.6 K/mm3 (4.0-10.8)
[2019-02-24 18:43] LABS: ALBUMIN 3.7 g/dl (3.4-5.0); BILIRUBIN,TOTAL 0.7 mg/dl (0.2-1); CREATININE 1.2 mg/dl (0.55-1.3); TOT PROT 6.4 g/dl (6.4-8.2)
[2019-02-24 19:11] LABS: VENOUS PC02 63.7 mmHg (38-52)
[2019-02-24 19:15] LABS: VENOUS PO2 < 49 mmHg (28-48)
[2019-02-24] MEDS ORDERED: methylPREDNISolone NA SUCC 125 MG/2 ML VIAL IVPUSH ONE (20:48)
[2019-02-24] MEDS ORDERED: ALBUTEROL SO4 2.5/IPRATROPIUM 0.5 INH SOL 3 ML VIAL.NEB. NEB PRN ×2 (20:49→20:51)
[2019-02-24 20:58] VITALS: BMI 56.8
[2019-02-24] MEDS ORDERED: PNEUMOC 13-VAL CONJ-DIP CRM/PF 0.5 ML DISP.SYRIN IM ONE (20:58)
[2019-02-24] MEDS: FUROSEMIDE 40 MG/4 ML INJECTABLE VIAL IVPUSH SCH (21:16)
[2019-02-24] MEDS ORDERED: RIVAROXABAN 20 MG TABLET PO ONE (21:30)
[2019-02-24 22:50] LABS: EPITHELIAL CELLS MODERATE /hpf
[2019-02-25] MEDS ORDERED: PT OWN MED DRAWER 7, Y5N ONE (08:59)
[2019-02-25] MEDS: FUROSEMIDE 40 MG/4 ML INJECTABLE VIAL IVPUSH SCH (09:20)
[2019-02-25] MEDS: ALLOPURINOL 100 MG TABLET (FP) PO SCH (09:20)
[2019-02-25] MEDS: amLODIPine BESYLATE 10 MG TABLET (FP) PO SCH (09:20)
[2019-02-25] MEDS: ALBUTEROL SO4 2.5/IPRATROPIUM 0.5 INH SOL 3 ML VIAL.NEB. NEB SCH ×4 (09:23→20:53)
[2019-02-25] MEDS: AZITHROMYCIN IVPB 500 MG/250 ML BAG IVPB SCH (09:23)
[2019-02-25] MEDS: CEFTRIAXONE 1 G/50 ML PREMIX 50 ML IVPB SCH (09:23)
--- NOTE | 2019-02-25 13:08 | HP ---
Admitting History and Physical - Admission Chief Complaint: cough, shortness of breath fever, chills History of Present Illness: 69 yo female who developed cough, dyspnea and wheezing over the past 2 weeks was found to have bilateral pneumonia. She was admitted for iv antibiotic and steroid administration. Patient has PMH of HTN, A fib, COPD and Obesity. History Source: Patient Limitations to Obtaining History: No Limitations - Past Medical History Cardiovascular: Yes: AFIB, HTN ...: No - Smoking History Smoking history: Never smoked Have you smoked in the past 12 months: No Aproximately how many cigarettes per day: 0 - Alcohol/Substance Use Hx Alcohol Use: No - Social History Usual Living Arrangement: Yes: With Child History of Recent Travel: No Home Medications - Allergies Allergies/Adverse Reactions: Allergies Allergy/AdvReac Type Severity Reaction Status Date / Time Penicillins Allergy Verified 02/24/19 18:31 - Home Medications Home Medications: Ambulatory Orders Metoprolol Succinate [Toprol Xl] 100 mg PO HS 04/28/18 Rivaroxaban [Xarelto -] 20 mg PO HS 04/28/18 Allopurinol [Zyloprim -] 100 mg PO DAILY tablet 05/11/18 Amlodipine Besylate [Norvasc -] 10 mg PO DAILY tablet 05/11/18 Cholecalciferol (Vitamin D3) [Vitamin D3] 2,000 unit PO DAILY 02/24/19 Review of Systems - Review of Systems Constitutional: reports: Chills, Fever, Lethargy, Loss of Appetite, Malaise, Weakness Respiratory: reports: SOB, SOB on Exertion, Wheezing. denies: Orthopnea Genitourinary: reports: No Symptoms Breasts: reports: No Symptoms Reported Musculoskeletal: reports: Muscle Weakness Physical Examination Vital Signs: Vital Signs Temperature 98.1 F 02/25/19 09:07 Pulse Rate 72 02/25/19 09:07 Respiratory Rate 19 02/25/19 09:07 Blood Pressure 118/70 02/25/19 09:07 O2 Sat by Pulse Oximetry (%) 99 02/25/19 09:07 Constitutional: Yes: Calm, Obese Eyes: Yes: Conjunctiva Clear, EOM Intact HENT: Yes: Atraumatic, Normocephalic Cardiovascular: Yes: Regular Rate and Rhythm, S1, S2 Respiratory: Yes: Cough, On Nasal O2, Rales (bilaterally), SOB, SOB on Exertion , Wheezes. No: Stridor Gastrointestinal: Yes: Normal Bowel Sounds, Soft, Abdomen, Obese. 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, cardiomegaly) Problem List - Problems (1) Bilateral pneumonia Assessment/Plan: started on Ceftriaxone and Zithromax, O2 via NC duo neb every 6 hours Solumedrol 60 mg iv q 8 Hrs via NC monitor pulse ox Code(s): J18.9 - PNEUMONIA, UNSPECIFIED ORGANISM Qualifiers: Pneumonia type: due to unspecified organism (2) CHF (congestive heart failure) Assessment/Plan: acute on chronic Lasix iv daily Code(s): I50.9 - HEART FAILURE, UNSPECIFIED (3) COPD (chronic obstructive pulmonary disease) Assessment/Plan: exacerbation continue Duoneb every 6 hours Code(s): J44.9 - CHRONIC OBSTRUCTIVE PULMONARY DISEASE, UNSPECIFIED (4) Atrial fibrillation Assessment/Plan: Xarelto daily Toprol Code(s): I48.91 - UNSPECIFIED ATRIAL FIBRILLATION
[2019-02-25] MEDS: methylPREDNISolone NA SUCC 40 MG/1 ML VIAL IVPB SCH ×2 (15:13→18:10)
--- NOTE | 2019-02-25 17:08 | EKG ---
Test Reason : Blood Pressure : / mmHG Vent. Rate : 082 BPM Atrial Rate : 049 BPM P-R Int : 000 ms QRS Dur : 088 ms QT Int : 404 ms P-R-T Axes : 000 004 020 degrees QTc Int : 472 ms ATRIAL FIBRILLATION NONSPECIFIC ST AND T WAVE ABNORMALITY ABNORMAL ECG WHEN COMPARED WITH ECG OF 28-APR-2018 14:05, T WAVE VARIATION Confirmed by PIERRE FOWLER MD [id number]) on 02/25/2019 5:08:41 PM Referred By: AY SIN Confirmed By:PIERRE FOWLER MD
[2019-02-25] MEDS: RIVAROXABAN 20 MG TABLET PO SCH (18:52)
[2019-02-26] MEDS: methylPREDNISolone NA SUCC 40 MG/1 ML VIAL IVPB SCH ×3 (01:22→18:28)
[2019-02-26] MEDS: ALBUTEROL SO4 2.5/IPRATROPIUM 0.5 INH SOL 3 ML VIAL.NEB. NEB SCH ×4 (08:00→20:25)
[2019-02-26] MEDS: ALLOPURINOL 100 MG TABLET (FP) PO SCH (10:10)
[2019-02-26] MEDS: FUROSEMIDE 40 MG/4 ML INJECTABLE VIAL IVPUSH SCH (10:33)
[2019-02-26] MEDS: CEFTRIAXONE 1 G/50 ML PREMIX 50 ML IVPB SCH (10:33)
[2019-02-26] MEDS: amLODIPine BESYLATE 10 MG TABLET (FP) PO SCH (10:34)
[2019-02-26] MEDS: AZITHROMYCIN IVPB 500 MG/250 ML BAG IVPB SCH (10:45)
[2019-02-26] MEDS: RIVAROXABAN 20 MG TABLET PO SCH (18:28)
--- NOTE | 2019-02-26 20:23 | PN ---
Progress Note, Physician Chief Complaint: cough and dyspnea History of Present Illness: 69 yo female admitted for bilateral pneumonia, continues to cough. There is less dyspnea but wheezing persists. Cough is non productive and there was no fever. - Current Medication List Current Medications: Active Medications Albuterol/Ipratropium (Duoneb -) 1 amp NEB RQID [facility] Last Admin: 02/26/19 18:27 Dose: 1 amp Albuterol/Ipratropium (Duoneb -) 1 amp NEB Q2H PRN PRN Reason: SHORTNESS OF BREATH Allopurinol (Zyloprim -) 100 mg PO DAILY [facility] Last Admin: 02/26/19 10:10 Dose: 100 mg Amlodipine Besylate (Norvasc -) 10 mg PO DAILY [facility] Last Admin: 02/26/19 10:34 Dose: 10 mg Furosemide (Lasix Injection -) 40 mg IVPUSH DAILY [facility] Last Admin: 02/26/19 10:33 Dose: 40 mg Ceftriaxone Sodium (Ceftriaxone 1 Gm-D5w Bag) 50 mls @ 100 mls/hr IVPB DAILY [facility]; Protocol Last Admin: 02/26/19 10:33 Dose: 100 mls/hr Azithromycin (Zithromax 500mg Ivpb (Pre-Docked)) 500 mg in 250 mls @ 250 mls/ hr IVPB DAILY [facility] Last Admin: 02/26/19 10:45 Dose: 250 mls/hr Lactobacillus Acidophilus (Bacid -) 1 tab PO BID [facility] Methylprednisolone Sodium Succinate (Solu-Medrol -) 60 mg IVPB Q8H-IV [facility] Last Admin: 02/26/19 18:28 Dose: 60 mg Metoprolol Succinate (Toprol Xl -) 100 mg PO HS [facility] Last Admin: 02/25/19 22:19 Dose: 100 mg Rivaroxaban (Xarelto) 20 mg PO DAILY@1800 [facility] Last Admin: 02/26/19 18:28 Dose: 20 mg - Objective Vital Signs: Vital Signs Temperature 98.0 F 02/26/19 18:00 Pulse Rate 88 02/26/19 18:00 Respiratory Rate 20 02/26/19 18:00 Blood Pressure 127/67 02/26/19 18:00 O2 Sat by Pulse Oximetry (%) 98 02/26/19 14:02 Constitutional: Yes: Mild Distress Eyes: Yes: Conjunctiva Clear, EOM Intact HENT: Yes: Atraumatic, Normocephalic Neck: Yes: Supple, Trachea Midline Cardiovascular: Yes: Regular Rate and Rhythm Respiratory: Yes: Regular, CTA Bilaterally, On Nasal O2, SOB Gastrointestinal: Yes: Normal Bowel Sounds, Soft, Abdomen, Obese. No: Hepatomegaly, Splenomegaly ...Rectal Exam: Yes: Deferred Genitourinary: Yes: WNL Breast(s): Yes: WNL Extremities: No: Calf Tenderness Edema: No Peripheral Pulses WNL: Yes Neurological: Yes: Alert, Oriented Psychiatric: Yes: Alert, Oriented Labs: CBC, BMP 02/24/19 18:04 02/24/19 18:04 Problem List - Problems (1) Bilateral pneumonia Assessment/Plan: continue Ceftriaxone and Zithromax, add Robitussin O2 via NC duo nEb continue Solumedrol 60 mg iv q 8 Hrs monitor pulse ox Code(s): J18.9 - PNEUMONIA, UNSPECIFIED ORGANISM Qualifiers: Pneumonia type: due to unspecified organism (2) CHF (congestive heart failure) Assessment/Plan: acute on chronic systolic Lasix iv daily and monitor CMP Code(s): I50.9 - HEART FAILURE, UNSPECIFIED (3) Atrial fibrillation Assessment/Plan: Xarelto daily HR controlled with Toprol Code(s): I48.91 - UNSPECIFIED ATRIAL FIBRILLATION
[2019-02-26 21:34] LABS: HEMATOCRIT 43.2 % (32.4-45.2); HEMOGLOBIN 14.1 GM/dl (10.7-15.3); MCH 30.5 pg (25.7-33.7); MCHC 32.7 g/dl (32.0-36.0); MEAN CELL VOLUME 93.3 fl (80-96); PLATELET COUNT 243 K/MM3 (134-434); RBC 4.63 M/mm3 (3.60-5.2); RDW 14.1 % (11.6-15.6); WHITE BLOOD COUNT 14.3 K/mm3 (4.0-10.8)
[2019-02-26] MEDS: LACTOBACILLUS ACIDOPHILUS 1 TABLET PO SCH (22:04)
[2019-02-26 22:47] LABS: PLATELET ESTIMATE ADEQUATE
[2019-02-27] MEDS: methylPREDNISolone NA SUCC 40 MG/1 ML VIAL IVPB SCH ×3 (01:02→21:48)
[2019-02-27] MEDS ORDERED: guaiFENesin/CODEINE 5 ML UNIT-DOSE CUPS PO PRN (06:48)
[2019-02-27] MEDS ORDERED: guaiFENesin/CODEINE 10 ML UNIT-DOSE CUPS PO PRN (07:29)
[2019-02-27 08:00] LABS: ALBUMIN 3.2 g/dl (3.4-5.0); BILIRUBIN,TOTAL 0.6 mg/dl (0.2-1); CALCIUM 8.7 mg/dl (8.5-10); CREATININE 1.4 mg/dl (0.55-1.3); POTASSIUM 4.2 mmol/L (3.5-5.1); TOT PROT 6.1 g/dl (6.4-8.2)
[2019-02-27] MEDS: ALBUTEROL SO4 2.5/IPRATROPIUM 0.5 INH SOL 3 ML VIAL.NEB. NEB SCH ×4 (08:14→20:23)
[2019-02-27] MEDS: ALLOPURINOL 100 MG TABLET (FP) PO SCH (10:23)
[2019-02-27] MEDS: amLODIPine BESYLATE 10 MG TABLET (FP) PO SCH (10:32)
[2019-02-27] MEDS: LACTOBACILLUS ACIDOPHILUS 1 TABLET PO SCH ×2 (10:32→21:49)
[2019-02-27] MEDS: AZITHROMYCIN IVPB 500 MG/250 ML BAG IVPB SCH (10:32)
[2019-02-27] MEDS: CEFTRIAXONE 1 G/50 ML PREMIX 50 ML IVPB SCH (10:32)
[2019-02-27] MEDS: FUROSEMIDE 40 MG/4 ML INJECTABLE VIAL IVPUSH SCH (10:32)
--- NOTE | 2019-02-27 16:20 | PN ---
Progress Note, Physician Chief Complaint: cough and dyspnea have decreased History of Present Illness: 69 yo female admitted for bilateral pneumonia has less cough and dyspnea. There is no wheezing. - Current Medication List Current Medications: Active Medications Albuterol/Ipratropium (Duoneb -) 1 amp NEB RQID [facility] Last Admin: 02/27/19 08:14 Dose: 1 amp Albuterol/Ipratropium (Duoneb -) 1 amp NEB Q2H PRN PRN Reason: SHORTNESS OF BREATH Allopurinol (Zyloprim -) 100 mg PO DAILY [facility] Last Admin: 02/27/19 10:23 Dose: 100 mg Amlodipine Besylate (Norvasc -) 10 mg PO DAILY [facility] Last Admin: 02/27/19 10:32 Dose: 10 mg Furosemide (Lasix Injection -) 40 mg IVPUSH DAILY [facility] Last Admin: 02/27/19 10:32 Dose: 40 mg Guaifenesin/Codeine Phosphate (Robitussin Ac -) 5 ml PO TID PRN PRN Reason: COUGH Ceftriaxone Sodium (Ceftriaxone 1 Gm-D5w Bag) 50 mls @ 100 mls/hr IVPB DAILY [facility]; Protocol Last Admin: 02/27/19 10:32 Dose: 100 mls/hr Azithromycin (Zithromax 500mg Ivpb (Pre-Docked)) 500 mg in 250 mls @ 250 mls/ hr IVPB DAILY [facility] Last Admin: 02/27/19 10:32 Dose: 250 mls/hr Lactobacillus Acidophilus (Bacid -) 1 tab PO BID [facility] Last Admin: 02/27/19 10:32 Dose: 1 tab Methylprednisolone Sodium Succinate (Solu-Medrol -) 60 mg IVPB Q8H-IV [facility] Last Admin: 02/27/19 10:32 Dose: 60 mg Metoprolol Succinate (Toprol Xl -) 100 mg PO HS [facility] Last Admin: 02/26/19 22:04 Dose: 100 mg Rivaroxaban (Xarelto) 20 mg PO DAILY@1800 [facility] Last Admin: 02/26/19 18:28 Dose: 20 mg - Objective Vital Signs: Vital Signs Temperature 97.9 F 02/27/19 14:36 Pulse Rate 52 L 02/27/19 14:36 Respiratory Rate 19 02/27/19 14:36 Blood Pressure 140/75 02/27/19 14:36 O2 Sat by Pulse Oximetry (%) 98 02/27/19 14:36 Constitutional: Yes: No Distress, Calm Eyes: Yes: Conjunctiva Clear, EOM Intact HENT: Yes: Atraumatic, Normocephalic Cardiovascular: Yes: Regular Rate and Rhythm, S1, S2 Respiratory: Yes: Regular, CTA Bilaterally, On Nasal O2. No: SOB, SOB on Exertion Extremities: No: Calf Tenderness Edema: No Neurological: Yes: Alert, Oriented Psychiatric: Yes: Alert, Oriented Labs: CBC, BMP 02/26/19 20:22 02/27/19 07:05 Problem List - Problems (1) Bilateral pneumonia Assessment/Plan: continue Ceftriaxone and Zithromax, add Robitussin O2 via NC duo nEb decrease Solumedrol 60 mg iv q 12 Hrs monitor pulse ox CXR in am Code(s): J18.9 - PNEUMONIA, UNSPECIFIED ORGANISM Qualifiers: Pneumonia type: due to unspecified organism (2) CHF (congestive heart failure) Assessment/Plan: acute on chronic systolic continue Lasix iv daily and monitor CMP BNP Code(s): I50.9 - HEART FAILURE, UNSPECIFIED (3) Atrial fibrillation Assessment/Plan: Xarelto daily HR controlled with Toprol Code(s): I48.91 - UNSPECIFIED ATRIAL FIBRILLATION
[2019-02-27] MEDS: RIVAROXABAN 20 MG TABLET PO SCH (17:50)
[2019-02-28] MEDS: FUROSEMIDE 40 MG/4 ML INJECTABLE VIAL IVPUSH SCH (09:46)
[2019-02-28] MEDS: CEFTRIAXONE 1 G/50 ML PREMIX 50 ML IVPB SCH (09:46)
[2019-02-28] MEDS: LACTOBACILLUS ACIDOPHILUS 1 TABLET PO SCH ×2 (09:46→21:05)
[2019-02-28] MEDS: ALLOPURINOL 100 MG TABLET (FP) PO SCH (09:48)
[2019-02-28] MEDS: ALBUTEROL SO4 2.5/IPRATROPIUM 0.5 INH SOL 3 ML VIAL.NEB. NEB SCH ×4 (09:49→21:04)
[2019-02-28] MEDS: amLODIPine BESYLATE 10 MG TABLET (FP) PO SCH (09:49)
[2019-02-28] MEDS: AZITHROMYCIN IVPB 500 MG/250 ML BAG IVPB SCH (09:50)
[2019-02-28] MEDS: methylPREDNISolone NA SUCC 40 MG/1 ML VIAL IVPB SCH ×2 (09:51→21:05)
--- NOTE | 2019-02-28 11:06 | PN ---
Progress Note, Physician Chief Complaint: cough and dyspnea are better History of Present Illness: 69 yo female admitted for bilateral pneumonia has less cough and dyspnea. There is no wheezing. patient was examined today immedoately after she receieved the nebulizer treatment - Current Medication List Current Medications: Active Medications Albuterol/Ipratropium (Duoneb -) 1 amp NEB RQID [facility] Last Admin: 02/28/19 09:49 Dose: 1 amp Albuterol/Ipratropium (Duoneb -) 1 amp NEB Q2H PRN PRN Reason: SHORTNESS OF BREATH Allopurinol (Zyloprim -) 100 mg PO DAILY [facility] Last Admin: 02/28/19 09:48 Dose: 100 mg Amlodipine Besylate (Norvasc -) 10 mg PO DAILY [facility] Last Admin: 02/28/19 09:49 Dose: 10 mg Furosemide (Lasix Injection -) 40 mg IVPUSH DAILY [facility] Last Admin: 02/28/19 09:46 Dose: 40 mg Guaifenesin/Codeine Phosphate (Robitussin Ac -) 5 ml PO TID PRN PRN Reason: COUGH Ceftriaxone Sodium (Ceftriaxone 1 Gm-D5w Bag) 50 mls @ 100 mls/hr IVPB DAILY [facility]; Protocol Last Admin: 02/28/19 09:46 Dose: 100 mls/hr Azithromycin (Zithromax 500mg Ivpb (Pre-Docked)) 500 mg in 250 mls @ 250 mls/ hr IVPB DAILY [facility] Last Admin: 02/28/19 09:50 Dose: 250 mls/hr Lactobacillus Acidophilus (Bacid -) 1 tab PO BID [facility] Last Admin: 02/28/19 09:46 Dose: 1 tab Methylprednisolone Sodium Succinate (Solu-Medrol -) 60 mg IVPB BID [facility] Last Admin: 02/28/19 09:51 Dose: 60 mg Metoprolol Succinate (Toprol Xl -) 100 mg PO HS [facility] Last Admin: 02/27/19 21:48 Dose: 100 mg Rivaroxaban (Xarelto) 20 mg PO DAILY@1800 [facility] Last Admin: 02/27/19 17:50 Dose: 20 mg - Objective Vital Signs: Vital Signs Temperature 97.5 F L 02/28/19 06:00 Pulse Rate 74 02/28/19 06:00 Respiratory Rate 20 02/28/19 06:00 Blood Pressure 135/71 02/28/19 06:00 O2 Sat by Pulse Oximetry (%) 94 L 02/28/19 06:00 Constitutional: Yes: No Distress, Calm Eyes: Yes: Conjunctiva Clear, EOM Intact HENT: Yes: Atraumatic, Normocephalic Cardiovascular: Yes: Regular Rate and Rhythm, S1, S2 Gastrointestinal: Yes: Normal Bowel Sounds, Soft, Abdomen, Obese Extremities: No: Calf Tenderness Edema: No Peripheral Pulses WNL: Yes Neurological: Yes: Alert, Oriented Labs: CBC, BMP 02/26/19 20:22 02/27/19 07:05 Problem List - Problems (1) Bilateral pneumonia Assessment/Plan: continue Ceftriaxone and Zithromax, add Robitussin O2 via NC duo nEb decrease Solumedrol 60 mg iv q 12 Hrs monitor pulse ox CXR in am Code(s): J18.9 - PNEUMONIA, UNSPECIFIED ORGANISM Qualifiers: Pneumonia type: due to unspecified organism (2) CHF (congestive heart failure) Code(s): I50.9 - HEART FAILURE, UNSPECIFIED (3) Atrial fibrillation Code(s): I48.91 - UNSPECIFIED ATRIAL FIBRILLATION
[2019-02-28] MEDS: RIVAROXABAN 20 MG TABLET PO SCH (18:10)
[2019-03-01 08:09] LABS: HEMATOCRIT 42.8 % (32.4-45.2); HEMOGLOBIN 14.1 GM/dl (10.7-15.3); MCH 30.9 pg (25.7-33.7); MEAN CELL VOLUME 93.7 fl (80-96); MEAN PLT VOLUME 7.6 fl (7.5-11.1); PLATELET COUNT 258 K/MM3 (134-434); RBC 4.57 M/mm3 (3.60-5.2); RDW 14.6 % (11.6-15.6); WHITE BLOOD COUNT 12.8 K/mm3 (4.0-10.8)
[2019-03-01 08:17] LABS: ALBUMIN 3.2 g/dl (3.4-5.0); BILIRUBIN,TOTAL 0.8 mg/dl (0.2-1); CALCIUM 8.7 mg/dl (8.5-10); CREATININE 1.4 mg/dl (0.55-1.3); POTASSIUM 4.5 mmol/L (3.5-5.1); TOT PROT 5.9 g/dl (6.4-8.2)
[2019-03-01 09:08] LABS: PLATELET ESTIMATE ADEQUATE
[2019-03-01] MEDS: methylPREDNISolone NA SUCC 40 MG/1 ML VIAL IVPB SCH ×2 (09:46→22:14)
[2019-03-01] MEDS: FUROSEMIDE 40 MG/4 ML INJECTABLE VIAL IVPUSH SCH (09:46)
[2019-03-01] MEDS: CEFTRIAXONE 1 G/50 ML PREMIX 50 ML IVPB SCH (09:47)
[2019-03-01] MEDS: ALBUTEROL SO4 2.5/IPRATROPIUM 0.5 INH SOL 3 ML VIAL.NEB. NEB SCH ×4 (09:47→20:39)
[2019-03-01] MEDS: LACTOBACILLUS ACIDOPHILUS 1 TABLET PO SCH ×2 (09:47→22:12)
[2019-03-01] MEDS: ALLOPURINOL 100 MG TABLET (FP) PO SCH (09:47)
[2019-03-01] MEDS: amLODIPine BESYLATE 10 MG TABLET (FP) PO SCH (09:47)
[2019-03-01] MEDS: AZITHROMYCIN IVPB 500 MG/250 ML BAG IVPB SCH (10:35)
--- NOTE | 2019-03-01 16:45 | PN ---
Progress Note, Physician Chief Complaint: cough and dyspnea are better History of Present Illness: 69 yo female admitted for bilateral pneumonia has less cough and dyspnea. There is no wheezing. patient was examined today immedoately after she receieved the nebulizer treatment - Current Medication List Current Medications: Active Medications Albuterol/Ipratropium (Duoneb -) 1 amp NEB RQID [facility] Last Admin: 03/01/19 12:50 Dose: 1 amp Albuterol/Ipratropium (Duoneb -) 1 amp NEB Q2H PRN PRN Reason: SHORTNESS OF BREATH Allopurinol (Zyloprim -) 100 mg PO DAILY [facility] Last Admin: 03/01/19 09:47 Dose: 100 mg Amlodipine Besylate (Norvasc -) 10 mg PO DAILY [facility] Last Admin: 03/01/19 09:47 Dose: 10 mg Furosemide (Lasix -) 40 mg PO DAILY [facility] Guaifenesin/Codeine Phosphate (Robitussin Ac -) 5 ml PO TID PRN PRN Reason: COUGH Ceftriaxone Sodium (Ceftriaxone 1 Gm-D5w Bag) 50 mls @ 100 mls/hr IVPB DAILY [facility]; Protocol Last Admin: 03/01/19 09:47 Dose: 100 mls/hr Azithromycin (Zithromax 500mg Ivpb (Pre-Docked)) 500 mg in 250 mls @ 250 mls/ hr IVPB DAILY [facility] Last Admin: 03/01/19 10:35 Dose: 250 mls/hr Lactobacillus Acidophilus (Bacid -) 1 tab PO BID [facility] Last Admin: 03/01/19 09:47 Dose: 1 tab Methylprednisolone Sodium Succinate (Solu-Medrol -) 60 mg IVPB BID [facility] Stop: 03/01/19 23:59 Last Admin: 03/01/19 09:46 Dose: 60 mg Metoprolol Succinate (Toprol Xl -) 100 mg PO HS [facility] Last Admin: 02/28/19 21:05 Dose: 100 mg Prednisone (Deltasone -) 60 mg PO DAILY [facility] Rivaroxaban (Xarelto) 20 mg PO DAILY@1800 [facility] Last Admin: 02/28/19 18:10 Dose: 20 mg - Objective Vital Signs: Vital Signs Temperature 97.7 F 03/01/19 14:00 Pulse Rate 85 03/01/19 14:00 Respiratory Rate 18 03/01/19 14:00 Blood Pressure 117/53 L 03/01/19 14:00 O2 Sat by Pulse Oximetry (%) 97 03/01/19 14:00 Constitutional: Yes: No Distress, Calm Eyes: Yes: Conjunctiva Clear HENT: Yes: Atraumatic, Normocephalic Neck: Yes: Supple, Trachea Midline Cardiovascular: Yes: Regular Rate and Rhythm Respiratory: Yes: Regular, CTA Bilaterally Gastrointestinal: Yes: Normal Bowel Sounds, Soft, Abdomen, Obese Edema: No Peripheral Pulses WNL: Yes Neurological: Yes: Alert, Oriented Psychiatric: Yes: Alert, Oriented Labs: CBC, BMP 03/01/19 07:34 03/01/19 07:34 Problem List - Problems (1) Bilateral pneumonia Assessment/Plan: continue Ceftriaxone and Zithromax, add Robitussin O2 via NC duo nEb decrease Solumedrol 60 mg iv q 12 Hrs monitor pulse ox CXR in am Code(s): J18.9 - PNEUMONIA, UNSPECIFIED ORGANISM Qualifiers: Pneumonia type: due to unspecified organism (2) CHF (congestive heart failure) Assessment/Plan: acute on chronic systolic continue Lasix iv daily and monitor CMP BNP Code(s): I50.9 - HEART FAILURE, UNSPECIFIED (3) Atrial fibrillation Assessment/Plan: Xarelto daily HR controlled with Toprol Code(s): I48.91 - UNSPECIFIED ATRIAL FIBRILLATION
[2019-03-01] MEDS: RIVAROXABAN 20 MG TABLET PO SCH (17:45)
[2019-03-02] MEDS: CEFTRIAXONE 1 G/50 ML PREMIX 50 ML IVPB SCH (09:40)
[2019-03-02] MEDS: AZITHROMYCIN IVPB 500 MG/250 ML BAG IVPB SCH (09:40)
[2019-03-02] MEDS: ALLOPURINOL 100 MG TABLET (FP) PO SCH (09:41)
[2019-03-02] MEDS: ALBUTEROL SO4 2.5/IPRATROPIUM 0.5 INH SOL 3 ML VIAL.NEB. NEB SCH ×3 (09:41→15:38)
[2019-03-02] MEDS: LACTOBACILLUS ACIDOPHILUS 1 TABLET PO SCH (09:42)
[2019-03-02] MEDS: amLODIPine BESYLATE 10 MG TABLET (FP) PO SCH (09:42)
[2019-03-02] MEDS ORDERED: FUROSEMIDE 40 MG TABLET (FP) PO SCH (10:00)
[2019-03-02] MEDS ORDERED: predniSONE 20 MG TABLET (UD) PO SCH (10:00)
[2019-03-02 14:06] VITALS: BP 112/68; PULSE 84; TEMP 98.4
--- NOTE | 2019-03-02 16:23 | DS ---
Physical Examination Vital Signs: Vital Signs Temperature 98.4 F 03/02/19 14:00 Pulse Rate 84 03/02/19 14:00 Respiratory Rate 18 03/02/19 14:00 Blood Pressure 112/68 03/02/19 14:00 O2 Sat by Pulse Oximetry (%) 93 L 03/02/19 06:00 Constitutional: Yes: No Distress, Calm Eyes: Yes: Conjunctiva Clear, EOM Intact HENT: Yes: Atraumatic, Normocephalic Neck: Yes: Trachea Midline Cardiovascular: Yes: Regular Rate and Rhythm Respiratory: Yes: Regular, CTA Bilaterally Gastrointestinal: Yes: Normal Bowel Sounds, Abdomen, Obese Renal/: Yes: WNL Breast(s): Yes: WNL Musculoskeletal: Yes: WNL Edema: No Peripheral Pulses WNL: Yes Neurological: Yes: Alert, Oriented Psychiatric: Yes: Alert, Oriented Labs: CBC, BMP 03/01/19 07:34 03/01/19 07:34 Discharge Summary Problems reviewed: Yes Reason For Visit: PNEUMONIA Current Active Problems Bilateral pneumonia (Acute) CHF (congestive heart failure) (Acute) COPD (chronic obstructive pulmonary disease) (Acute) Pneumonia (Acute) Hospital Course: Patient was admitted for bilaterla pneumonia and CHF. She received iv antibiotics and LAsix with good response. Her cough subsided and there is no shortness of breath. She is being discharged with oral Keflex and Zithromax. She will resume all her home medications. Follow up with me in 1 week Condition: Stable - Instructions Referrals: Radha Chapin MD [Primary Care Provider] - - Home Medications Comprehensive Discharge Medication List: Ambulatory Orders Metoprolol Succinate [Toprol Xl] 100 mg PO HS 04/28/18 Rivaroxaban [Xarelto -] 20 mg PO HS 04/28/18 Allopurinol [Zyloprim -] 100 mg PO DAILY tablet 05/11/18 Amlodipine Besylate [Norvasc -] 10 mg PO DAILY tablet 05/11/18 Cholecalciferol (Vitamin D3) [Vitamin D3] 2,000 unit PO DAILY 02/24/19 Allopurinol [Zyloprim -] 100 mg PO DAILY tablet 03/02/19 Amlodipine Besylate [Norvasc -] 10 mg PO DAILY tablet 03/02/19 Furosemide [Lasix -] 40 mg PO DAILY tablet 03/02/19 Lactobacillus Acidophilus [Bacid -] 1 tab PO BID 30 Days #60 tab 03/02/19 Metoprolol Succinate [Toprol XL -] 100 mg PO HS tab.sr.24h 03/02/19 Rivaroxaban [Xarelto -] 20 mg PO DAILY@1800 tablet 03/02/19 predniSONE [Deltasone -] 60 mg PO DAILY #20 tablet 03/02/19
== END 2019-03-02 16:52 | disposition home or self-care (01) | DRG 291 ==
LOC: FER 17:18 → FM/S 17:46
PROVIDERS: ADMIT Internal Medicine; ATTEND Internal Medicine
DX: I11.0 Hypertensive heart disease with heart failure (principal); J18.9 Pneumonia, unspecified organism; Z68.43 Body mass index [BMI] 50.0-59.9, adult; I50.23 Acute on chronic systolic (congestive) heart failure; E78.5 Hyperlipidemia, unspecified; I48.91 Unspecified atrial fibrillation; E66.01 Morbid (severe) obesity due to excess calories
CPT/HCPCS: 36415; 71046-TC-FY; 80053; 81003; 81015; 82550; 82553; 82803; 83605; 83880; 84484; 85025; 87040; 87070; 87081; 87086; 87205; 87804; 93005; 94640; 99284-25

== ENCOUNTER 2020-10-21 20:25 | Inpatient (IN) | payer OTHER ==
[2020-10-21] MEDS ORDERED: SODIUM CHLORIDE 1,000 ML IV ONE (20:52)
[2020-10-21 21:13] LABS: MEAN CELL VOLUME 95.3 fl (80-96); RDW 13.7 % (11.6-15.6)
[2020-10-21 21:18] LABS: HEMATOCRIT 46.5 % (32.4-45.2); HEMOGLOBIN 15.8 GM/dl (10.7-15.3); MCH 32.5 pg (25.7-33.7); MCHC 34.1 g/dl (32.0-36.0); MEAN PLT VOLUME 7.9 fl (7.5-11.1); PLATELET COUNT 218 10^3/uL (134-434); RBC 4.87 M/mm3 (3.60-5.2); WHITE BLOOD COUNT 15.6 K/mm3 (4.0-10.8)
[2020-10-21 21:21] LABS: INR 2.32 (0.82-1.09); PROTHROMBIN TIME (PATIENT) 24.6 SEC (10.2-13.0)
[2020-10-21 21:26] LABS: ALBUMIN 3.7 g/dl (3.4-5.0); ALK PHOS 257 U/L (45-117); ANION GAP 15 MMOL/L (8-16); BILIRUBIN,TOTAL 5.5 mg/dl (0.2-1); CALCIUM 9.2 mg/dl (8.5-10); CHLORIDE 98 mmol/L (98-107); CO2 26 mmol/L (21-32); CREATININE 1.4 mg/dl (0.55-1.3); GLUCOSE,RANDOM 167 mg/dl (74-106); SGOT/AST 166 U/L (15-37); SGPT/ALT 146 U/L (13-61); SODIUM 139 mmol/L (136-145); TOT PROT 6.5 g/dl (6.4-8.2)
[2020-10-21] MEDS ORDERED: ACETAMINOPHEN 1000 MG/100 ML VIAL (NON FORMULARY) IVPB ONE (22:37)
[2020-10-21] MEDS ORDERED: ACETAMINOPHEN INJECTION 100 ML IVPB ONE (22:37)
[2020-10-21 22:48] LABS: LIPASE 882 U/L (73-393)
[2020-10-21 23:02] LABS: ANISOCYTOSIS 1+; PLATELET ESTIMATE ADEQUATE
[2020-10-21 23:19] LABS: LACTIC ACID 2.5 mmol/L (0.4-2.0)
[2020-10-21] MEDS ORDERED: cefTRIAXone SODIUM 1 GM VIAL ONE (23:30)
[2020-10-21] MEDS: CEFTRIAXONE 1,000 MG in DEXTROSE 5%-WATER - 50 ML IVPB ONE ×2 (23:41→23:50)
[2020-10-21 23:59] LABS: EPITHELIAL CELLS FEW /hpf
[2020-10-22] MEDS ORDERED: ACETAMINOPHEN 1000 MG/100 ML VIAL (NON FORMULARY) IVPB PRN (00:22)
[2020-10-22] MEDS ORDERED: D5-1/2NS+20 MEQ KCL - 20 MEQ/1,000 ML INFUS.BAG IV SCH (00:30)
[2020-10-22] MEDS ORDERED: SODIUM CHLORIDE 1,000 ML IV ONE (02:20)
[2020-10-22] MEDS ORDERED: cefTRIAXone SODIUM 1 GM VIAL ONE (10:46)
[2020-10-22] MEDS ORDERED: DEXTROSE 5%-WATER - 50 ML IVPB ONE (10:46)
[2020-10-22 10:50] LABS: HEMATOCRIT 44.2 % (32.4-45.2); HEMOGLOBIN 14.9 GM/dL (10.7-15.3); MCH 32.3 pg (25.7-33.7); MCHC 33.7 g/dl (32.0-36.0); MEAN CELL VOLUME 95.8 fl (80-96); MEAN PLT VOLUME 8.4 fl (7.5-11.1); PLATELET COUNT 206 10^3/uL (134-434); RBC 4.62 M/mm3 (3.60-5.2); RDW 14.3 % (11.6-15.6)
[2020-10-22 10:52] LABS: WHITE BLOOD COUNT 41.7 K/mm3 (4.0-10.0)
[2020-10-22] MEDS ORDERED: LACTATED RINGERS SOLUTION 1,000 ML/1,000 ML INFUS.BAG IV SCH ×4 (11:00→21:00)
[2020-10-22 11:14] LABS: CALCIUM 8.7 mg/dL (8.5-10.1)
[2020-10-22 11:15] LABS: BLOOD UREA NITROGEN 18.5 mg/dL (7-18)
[2020-10-22 11:17] LABS: ANISOCYTOSIS 0; HELMET CELLS 0; HOWELL-JOLLY BODIES 0; MACROCYTOSIS 0; OVALOCYTE 0; PLATELET ESTIMATE NORMAL; ROULEAU 0; SICKELED CELLS 0; TARGET CELLS 0; TEAR DROP CELLS 0; TOXIC GRANULATION 0
[2020-10-22 11:18] LABS: CREATININE 1.6 mg/dL (0.55-1.3)
[2020-10-22 11:19] LABS: BILIRUBIN,TOTAL 8.3 mg/dL (0.2-1)
[2020-10-22] MEDS: CEFTRIAXONE 1 GM in DEXTROSE 5%-WATER - 50 ML IVPB SCH (11:21)
[2020-10-22 11:22] LABS: LACTIC ACID 4.4 mmol/L (0.4-2.0)
[2020-10-22] MEDS ORDERED: PANTOPRAZOLE SODIUM 40 MG VIAL IVPUSH ONE (11:30)
[2020-10-22] MEDS: KCL 10 MEQ IVPB 10 MEQ/100 ML INFUS.BAG IVPB SCH ×3 (11:48→22:23)
[2020-10-22] MEDS ORDERED: HUM PROTHROMBIN CPLX(PCC)4FACT 1,000 UNIT/40 ML VIAL IVPB ONE (12:30)
[2020-10-22] MEDS ORDERED: PROTHROMBIN COMPLEX CONCENTRATE IVPB ONE ×2 (12:30→12:45)
[2020-10-22] MEDS ORDERED: ONDANSETRON 4 MG/2 ML VIAL ONE (15:52)
[2020-10-23] MEDS ORDERED: D5-NS + 40 MEQ KCL - 40 MEQ/1,000 ML INFUS.BAG IV SCH (06:00)
[2020-10-23 09:05] LABS: INR 1.3 (0.83-1.09); PROTHROMBIN TIME (PATIENT) 15.9 SEC (9.7-13.0)
[2020-10-23 09:08] LABS: HEMATOCRIT 38.5 % (32.4-45.2); HEMOGLOBIN 13.2 GM/dL (10.7-15.3); MCH 32.7 pg (25.7-33.7); MCHC 34.2 g/dl (32.0-36.0); MEAN CELL VOLUME 95.7 fl (80-96); MEAN PLT VOLUME 8.7 fl (7.5-11.1); PLATELET COUNT 179 10^3/uL (134-434); RBC 4.03 M/mm3 (3.60-5.2); RDW 14.8 % (11.6-15.6); WHITE BLOOD COUNT 29.3 K/mm3 (4.0-10.0)
[2020-10-23 09:32] LABS: BLOOD UREA NITROGEN 26.5 mg/dL (7-18); CALCIUM 8.4 mg/dL (8.5-10.1)
[2020-10-23 09:35] LABS: CREATININE 1.6 mg/dL (0.55-1.3)
[2020-10-23 09:37] LABS: BILIRUBIN,TOTAL 3.7 mg/dL (0.2-1); TOT PROT 5.4 g/dl (6.4-8.2)
[2020-10-23 09:40] LABS: BILIRUBIN,DIRECT 3.2 mg/dL (0.0-0.2)
[2020-10-23 09:53] LABS: ALBUMIN 2.6 g/dl (3.4-5.0)
[2020-10-23] MEDS ORDERED: HEPARIN NA (PORCINE) 5,000 UNITS/ML 1ML VIAL SQ ONE (10:00)
[2020-10-23] MEDS ORDERED: PANTOPRAZOLE SODIUM 40 MG VIAL IVPUSH SCH (10:00)
[2020-10-23] MEDS ORDERED: DEXTROSE 5%-WATER - 50 ML IVPB ONE (10:17)
[2020-10-23] MEDS ORDERED: cefTRIAXone SODIUM 1 GM VIAL ONE (10:17)
[2020-10-23 10:44] LABS: ANISOCYTOSIS 0; MACROCYTOSIS 0; PLATELET ESTIMATE NORMAL
[2020-10-23] MEDS: CEFTRIAXONE 1 GM in DEXTROSE 5%-WATER - 50 ML IVPB SCH (12:09)
[2020-10-23] MEDS: DEXTROSE 5%-0.45% SALINE 1,000 ML IV SCH (17:37)
[2020-10-23] MEDS ORDERED: RIVAROXABAN 15 MG TABLET PO SCH (18:00)
[2020-10-23] MEDS: URSODIOL 300 MG CAPSULE PO SCH (23:03)
[2020-10-24 09:25] LABS: HEMATOCRIT 37.9 % (32.4-45.2); HEMOGLOBIN 12.7 GM/dL (10.7-15.3); MCH 32.7 pg (25.7-33.7); MCHC 33.6 g/dl (32.0-36.0); MEAN CELL VOLUME 97.2 fl (80-96); MEAN PLT VOLUME 8.7 fl (7.5-11.1); PLATELET COUNT 173 10^3/uL (134-434); RDW 15.1 % (11.6-15.6)
[2020-10-24 09:52] LABS: ALBUMIN 2.5 g/dl (3.4-5.0)
[2020-10-24 09:53] LABS: BLOOD UREA NITROGEN 26.7 mg/dL (7-18); CALCIUM 8.5 mg/dL (8.5-10.1)
[2020-10-24 09:55] LABS: CREATININE 1.4 mg/dL (0.55-1.3)
[2020-10-24 09:57] LABS: BILIRUBIN,TOTAL 1.7 mg/dL (0.2-1); TOT PROT 5.3 g/dl (6.4-8.2)
[2020-10-24] MEDS ORDERED: DEXTROSE 5%-WATER 100 ML IVPB ONE (11:11)
[2020-10-24] MEDS: CEFTRIAXONE 2 GM in DEXTROSE 5%-WATER 100 ML IVPB SCH (11:40)
[2020-10-24] MEDS: URSODIOL 300 MG CAPSULE PO SCH ×2 (11:40→21:20)
[2020-10-24 11:58] LABS: ANISOCYTOSIS 1+; MACROCYTOSIS 0; OVALOCYTE 1+; PLATELET ESTIMATE NORMAL
[2020-10-24] MEDS: DEXTROSE 5%-0.45% SALINE 1,000 ML IV SCH (17:58)
[2020-10-25] MEDS: LEVOTHYROXINE NA 25 MCG TABLET (FP) GT SCH (06:06)
[2020-10-25 09:01] LABS: HEMATOCRIT 38.9 % (32.4-45.2); HEMOGLOBIN 13.2 GM/dL (10.7-15.3); MCH 32.6 pg (25.7-33.7); MEAN PLT VOLUME 8.4 fl (7.5-11.1); PLATELET COUNT 155 10^3/uL (134-434); RBC 4.05 M/mm3 (3.60-5.2); RDW 14.8 % (11.6-15.6); WHITE BLOOD COUNT 13.5 K/mm3 (4.0-10.0)
[2020-10-25 09:31] LABS: ALBUMIN 2.6 g/dl (3.4-5.0); BLOOD UREA NITROGEN 18.3 mg/dL (7-18); CALCIUM 8.3 mg/dL (8.5-10.1)
[2020-10-25 09:34] LABS: CREATININE 1.1 mg/dL (0.55-1.3)
[2020-10-25 09:36] LABS: BILIRUBIN,TOTAL 1.3 mg/dL (0.2-1); TOT PROT 5.4 g/dl (6.4-8.2)
[2020-10-25] MEDS ORDERED: DEXTROSE 5%-WATER 100 ML IVPB ONE (09:50)
[2020-10-25] MEDS: CEFTRIAXONE 2 GM in DEXTROSE 5%-WATER 100 ML IVPB SCH (09:55)
[2020-10-25] MEDS: URSODIOL 300 MG CAPSULE PO SCH ×2 (10:33→21:44)
[2020-10-25 11:13] LABS: ANISOCYTOSIS 0; HELMET CELLS 0; HOWELL-JOLLY BODIES 0; MACROCYTOSIS 0; OVALOCYTE 0; PLATELET ESTIMATE NORMAL; ROULEAU 0; SICKELED CELLS 0; TARGET CELLS 0; TEAR DROP CELLS 0; TOXIC GRANULATION 0
[2020-10-25] MEDS: DEXTROSE 5%-0.45% SALINE 1,000 ML IV SCH (15:18)
[2020-10-25] MEDS ORDERED: DEXTROSE 5%-0.45% SALINE 1,000 ML IV SCH (15:46)
[2020-10-26] MEDS: LEVOTHYROXINE NA 25 MCG TABLET (FP) GT SCH (06:02)
[2020-10-26 08:39] LABS: HEMATOCRIT 41.7 % (32.4-45.2); HEMOGLOBIN 14.4 GM/dL (10.7-15.3); MCHC 34.5 g/dl (32.0-36.0); MEAN CELL VOLUME 95.8 fl (80-96); MEAN PLT VOLUME 8.2 fl (7.5-11.1); PLATELET COUNT 179 10^3/uL (134-434); RBC 4.35 M/mm3 (3.60-5.2); RDW 14.6 % (11.6-15.6); WHITE BLOOD COUNT 12.4 K/mm3 (4.0-10.0)
[2020-10-26 09:09] LABS: CALCIUM 8.7 mg/dL (8.5-10.1)
[2020-10-26 09:10] LABS: ALBUMIN 2.9 g/dl (3.4-5.0); BLOOD UREA NITROGEN 14.5 mg/dL (7-18)
[2020-10-26 09:13] LABS: CREATININE 1.1 mg/dL (0.55-1.3)
[2020-10-26 09:15] LABS: BILIRUBIN,TOTAL 1.5 mg/dL (0.2-1); TOT PROT 5.8 g/dl (6.4-8.2)
[2020-10-26] MEDS ORDERED: DEXTROSE 5%-WATER 100 ML IVPB ONE (09:42)
[2020-10-26] MEDS: URSODIOL 300 MG CAPSULE PO SCH ×2 (09:57→22:08)
[2020-10-26] MEDS: CEFTRIAXONE 2 GM in DEXTROSE 5%-WATER 100 ML IVPB SCH (09:57)
[2020-10-26 10:38] LABS: ANISOCYTOSIS 0; HELMET CELLS 0; HOWELL-JOLLY BODIES 0; MACROCYTOSIS 0; OVALOCYTE 0; PLATELET ESTIMATE NORMAL; ROULEAU 0; SICKELED CELLS 0; TARGET CELLS 0; TEAR DROP CELLS 0; TOXIC GRANULATION 0
[2020-10-26] MEDS ORDERED: RIVAROXABAN 15 MG TABLET PO SCH (18:00)
[2020-10-26] MEDS ORDERED: ONDANSETRON 4 MG/2 ML VIAL IVPUSH ONE (18:41)
[2020-10-26] MEDS: RIVAROXABAN 20 MG TABLET PO SCH (19:01)
[2020-10-27] MEDS: LEVOTHYROXINE NA 25 MCG TABLET (FP) GT SCH (06:02)
[2020-10-27] MEDS ORDERED: DEXTROSE 5%-WATER 100 ML IVPB ONE (09:15)
[2020-10-27] MEDS: URSODIOL 300 MG CAPSULE PO SCH ×2 (09:39→21:30)
[2020-10-27] MEDS: CEFTRIAXONE 2 GM in DEXTROSE 5%-WATER 100 ML IVPB SCH (09:39)
[2020-10-27] MEDS ORDERED: amLODIPine BESYLATE 2.5 MG TABLET (FP) PO SCH (10:00)
[2020-10-27] MEDS ORDERED: MAGNESIUM HYDROX 2400MG/30ML ORAL SUSPENSION 30 ML CUP PO PRN (11:44)
[2020-10-27] MEDS: RIVAROXABAN 20 MG TABLET PO SCH (17:01)
[2020-10-28] MEDS: LEVOTHYROXINE NA 25 MCG TABLET (FP) GT SCH (06:19)
[2020-10-28] MEDS ORDERED: ONDANSETRON 4 MG/2 ML VIAL IVPUSH PRN (08:39)
[2020-10-28 08:58] LABS: HEMATOCRIT 42.6 % (32.4-45.2); HEMOGLOBIN 14.4 GM/dL (10.7-15.3); MCH 32.4 pg (25.7-33.7); MCHC 33.7 g/dl (32.0-36.0); MEAN CELL VOLUME 96.1 fl (80-96); MEAN PLT VOLUME 8.5 fl (7.5-11.1); PLATELET COUNT 204 10^3/uL (134-434); RBC 4.43 M/mm3 (3.60-5.2); RDW 14.4 % (11.6-15.6); WHITE BLOOD COUNT 13.6 K/mm3 (4.0-10.0)
[2020-10-28] MEDS ORDERED: DEXTROSE 5%-WATER 100 ML IVPB ONE (09:02)
[2020-10-28 09:14] LABS: ALBUMIN 2.7 g/dl (3.4-5.0); BLOOD UREA NITROGEN 11.9 mg/dL (7-18); CALCIUM 8.7 mg/dL (8.5-10.1)
[2020-10-28 09:18] LABS: CREATININE 1.1 mg/dL (0.55-1.3); TOT PROT 5.4 g/dl (6.4-8.2)
[2020-10-28] MEDS: PANTOPRAZOLE 40 MG TABLET PO SCH ×2 (09:50→10:00)
[2020-10-28] MEDS: amLODIPine BESYLATE 2.5 MG TABLET (FP) PO SCH (09:50)
[2020-10-28] MEDS: URSODIOL 300 MG CAPSULE PO SCH ×2 (09:51→22:35)
[2020-10-28] MEDS: CEFTRIAXONE 2 GM in DEXTROSE 5%-WATER 100 ML IVPB SCH (09:51)
[2020-10-28 10:27] LABS: ANISOCYTOSIS 0; MACROCYTOSIS 0; PLATELET ESTIMATE NORMAL
[2020-10-28] MEDS ORDERED: MAG HYDROX/AL HYDROX/SIMETH 30 ML UNIT-DOSE CUP PO PRN (10:41)
[2020-10-28] MEDS: POLYETHYLENE GLYCOL (HEALTHYLAX) 3350 17 GM PACKET PO SCH (11:13)
[2020-10-28] MEDS: RIVAROXABAN 20 MG TABLET PO SCH (17:44)
[2020-10-29] MEDS: LEVOTHYROXINE NA 25 MCG TABLET (FP) GT SCH (06:28)
[2020-10-29] MEDS ORDERED: DEXTROSE 5%-WATER 100 ML IVPB ONE (09:28)
[2020-10-29] MEDS: URSODIOL 300 MG CAPSULE PO SCH ×2 (09:53→22:06)
[2020-10-29] MEDS: amLODIPine BESYLATE 2.5 MG TABLET (FP) PO SCH (09:53)
[2020-10-29] MEDS: POLYETHYLENE GLYCOL (HEALTHYLAX) 3350 17 GM PACKET PO SCH (09:53)
[2020-10-29] MEDS: PANTOPRAZOLE 40 MG TABLET PO SCH (09:53)
[2020-10-29] MEDS: CEFTRIAXONE 2 GM in DEXTROSE 5%-WATER 100 ML IVPB SCH (11:15)
[2020-10-29 11:21] LABS: HEMOGLOBIN 14.6 GM/dL (10.7-15.3); MCH 32.6 pg (25.7-33.7); MEAN PLT VOLUME 8.7 fl (7.5-11.1); PLATELET COUNT 203 10^3/uL (134-434); RBC 4.48 M/mm3 (3.60-5.2); RDW 14.4 % (11.6-15.6); WHITE BLOOD COUNT 13.2 K/mm3 (4.0-10.0)
[2020-10-29 11:34] LABS: CALCIUM 8.5 mg/dL (8.5-10.1)
[2020-10-29 11:35] LABS: ALBUMIN 2.7 g/dl (3.4-5.0); BLOOD UREA NITROGEN 11.6 mg/dL (7-18)
[2020-10-29 11:38] LABS: CREATININE 1.1 mg/dL (0.55-1.3)
[2020-10-29 11:39] LABS: BILIRUBIN,TOTAL 1.1 mg/dL (0.2-1)
[2020-10-29 11:40] LABS: TOT PROT 5.3 g/dl (6.4-8.2)
[2020-10-29 11:58] LABS: ANISOCYTOSIS 0; MACROCYTOSIS 0; PLATELET ESTIMATE NORMAL
[2020-10-29] MEDS: RIVAROXABAN 20 MG TABLET PO SCH (18:39)
[2020-10-29] MEDS ORDERED: FUROSEMIDE 40 MG/4 ML INJECTABLE VIAL IVPUSH ONE (19:51)
[2020-10-29] MEDS ORDERED: guaiFENesin 200 MG/10 ML 10 ML UNIT-DOSE CUPS PO ONE (19:53)
[2020-10-30] MEDS: LEVOTHYROXINE NA 25 MCG TABLET (FP) GT SCH (06:03)
[2020-10-30] MEDS ORDERED: FUROSEMIDE 40 MG/4 ML INJECTABLE VIAL IVPUSH ONE ×2 (06:49→14:46)
[2020-10-30] MEDS ORDERED: POTASSIUM CHLORIDE TABS 20 MEQ TABLET.ER (FP) PO ONE (06:49)
[2020-10-30] MEDS ORDERED: DEXTROSE 5%-WATER 100 ML IVPB ONE (08:39)
[2020-10-30 09:13] LABS: BASO % 0.3 % (0-2.0); EOS % 2.8 % (0-4.5); HEMATOCRIT 42.7 % (32.4-45.2); HEMOGLOBIN 14.6 GM/dL (10.7-15.3); LYMPH % 4.8 % (8-40); MCH 32.5 pg (25.7-33.7); MCHC 34.2 g/dl (32.0-36.0); MEAN CELL VOLUME 94.9 fl (80-96); MEAN PLT VOLUME 8.4 fl (7.5-11.1); MONO % 7.2 % (3.8-10.2); NEUT % 84.9 % (42.8-82.8); PLATELET COUNT 228 10^3/uL (134-434); RDW 14.6 % (11.6-15.6)
[2020-10-30 09:32] LABS: CALCIUM 8.4 mg/dL (8.5-10.1)
[2020-10-30 09:33] LABS: ALBUMIN 2.8 g/dl (3.4-5.0); BLOOD UREA NITROGEN 11.4 mg/dL (7-18)
[2020-10-30 09:36] LABS: CREATININE 1.1 mg/dL (0.55-1.3)
[2020-10-30 09:38] LABS: BILIRUBIN,TOTAL 0.9 mg/dL (0.2-1); TOT PROT 5.4 g/dl (6.4-8.2)
[2020-10-30] MEDS: POLYETHYLENE GLYCOL (HEALTHYLAX) 3350 17 GM PACKET PO SCH (09:43)
[2020-10-30] MEDS: URSODIOL 300 MG CAPSULE PO SCH ×2 (09:44→21:06)
[2020-10-30] MEDS: amLODIPine BESYLATE 10 MG TABLET (FP) PO SCH (09:44)
[2020-10-30] MEDS: PANTOPRAZOLE 40 MG TABLET PO SCH (09:44)
[2020-10-30] MEDS: CEFTRIAXONE 2 GM in DEXTROSE 5%-WATER 100 ML IVPB SCH (09:45)
[2020-10-30 11:25] VITALS: BMI 57.2
[2020-10-30] MEDS: ALBUTEROL SO4 0.083% IH SOL 2.5 MG/3 ML VIAL.NEB. NEB SCH ×3 (11:31→20:50)
[2020-10-30] MEDS ORDERED: guaiFENesin 200 MG/10 ML 10 ML UNIT-DOSE CUPS PO PRN (14:46)
[2020-10-30] MEDS: RIVAROXABAN 20 MG TABLET PO SCH (17:17)
[2020-10-31] MEDS: LEVOTHYROXINE NA 25 MCG TABLET (FP) GT SCH (06:12)
[2020-10-31] MEDS: ALBUTEROL SO4 0.083% IH SOL 2.5 MG/3 ML VIAL.NEB. NEB SCH ×3 (08:23→15:41)
[2020-10-31 08:33] LABS: BASO % 0.7 % (0-2.0); HEMATOCRIT 41.8 % (32.4-45.2); MCH 32.1 pg (25.7-33.7); MCHC 33.5 g/dl (32.0-36.0); MEAN CELL VOLUME 95.9 fl (80-96); MEAN PLT VOLUME 8.6 fl (7.5-11.1); MONO % 6.7 % (3.8-10.2); NEUT % 83.6 % (42.8-82.8); PLATELET COUNT 192 10^3/uL (134-434); RBC 4.36 M/mm3 (3.60-5.2); WHITE BLOOD COUNT 11.2 K/mm3 (4.0-10.0)
[2020-10-31 08:55] LABS: BLOOD UREA NITROGEN 11.7 mg/dL (7-18); CALCIUM 8.3 mg/dL (8.5-10.1)
[2020-10-31 08:56] LABS: ALBUMIN 2.6 g/dl (3.4-5.0)
[2020-10-31 08:58] LABS: CREATININE 1.3 mg/dL (0.55-1.3)
[2020-10-31 09:00] LABS: BILIRUBIN,TOTAL 0.8 mg/dL (0.2-1); TOT PROT 5.1 g/dl (6.4-8.2)
[2020-10-31] MEDS: POLYETHYLENE GLYCOL (HEALTHYLAX) 3350 17 GM PACKET PO SCH (10:17)
[2020-10-31] MEDS: PANTOPRAZOLE 40 MG TABLET PO SCH (10:33)
[2020-10-31] MEDS: URSODIOL 300 MG CAPSULE PO SCH (10:33)
[2020-10-31] MEDS: amLODIPine BESYLATE 10 MG TABLET (FP) PO SCH ×2 (10:33→11:27)
[2020-10-31 12:10] LABS: ANISOCYTOSIS 1+; MACROCYTOSIS 0; OVALOCYTE 1+; PLATELET ESTIMATE NORMAL
[2020-10-31] MEDS: RIVAROXABAN 20 MG TABLET PO SCH (17:27)
[2020-10-31 18:32] VITALS: BP 126/84; PULSE 88; TEMP 98.4
== END 2020-10-31 18:31 | disposition home or self-care (01) | DRG 445 ==
LOC: FER 20:25 → J5S 10-22 04:30
PROVIDERS: ADMIT Internal Medicine; ATTEND Internal Medicine
PROC: BF14YZZ Fluoroscopy of Gallbladder, Bile Ducts and Pancreatic Ducts using Other Contrast (ICD-10-PCS; 2020-10-22)
PROC: 0F7D8DZ Dilation of Pancreatic Duct with Intraluminal Device, Via Natural or Artificial Opening Endoscopic (ICD-10-PCS; 2020-10-22)
PROC: 0FC98ZZ Extirpation of Matter from Common Bile Duct, Via Natural or Artificial Opening Endoscopic (ICD-10-PCS; principal; 2020-10-22 12:00)
DX: K80.31 Calculus of bile duct with cholangitis, unspecified, with obstruction (principal); Z68.43 Body mass index [BMI] 50.0-59.9, adult; E87.2 Acidosis; I13.0 Hypertensive heart and chronic kidney disease with heart failure and stage 1 through stage 4 chronic kidney disease, or unspecified chronic kidney disease; I48.91 Unspecified atrial fibrillation; I10 Essential (primary) hypertension; E03.9 Hypothyroidism, unspecified; M10.9 Gout, unspecified; R94.5 Abnormal results of liver function studies; E87.6 Hypokalemia; K76.9 Liver disease, unspecified; E66.01 Morbid (severe) obesity due to excess calories; N18.9 Chronic kidney disease, unspecified; R50.9 Fever, unspecified; I50.9 Heart failure, unspecified; J44.9 Chronic obstructive pulmonary disease, unspecified; L27.0 Generalized skin eruption due to drugs and medicaments taken internally; T36.8X5A Adverse effect of other systemic antibiotics, initial encounter; Z86.19 Personal history of other infectious and parasitic diseases; Z88.0 Allergy status to penicillin
CPT/HCPCS: 36415; 71045-TC-FY; 71046-TC-FY; 74176-TC; 76000-TC-FY; 80053; 81003; 81015; 82150; 82248; 82550; 83605; 83690; 84484; 85025; 85610; 86140; 87086; 87186; 93005; 94640; 94760; 94761; 97116-GP; 97162-GP; 99285-25; C9803; J0131; J1644; J7168; U0003; U0005

== ENCOUNTER 2021-11-25 08:37 | Day surgery (SDC) | payer OTHER ==
[2021-11-23 16:25] VITALS: BMI 54.6
[2021-11-25] MEDS ORDERED: LIDOCAINE 1% P/F 10 MG/ML VIAL ONE (09:03)
[2021-11-25] MEDS ORDERED: NEO/POLYMYX B SULF/DEXAMETH OPHTHALMIC 5ML BOTTLE ONE (09:03)
[2021-11-25] MEDS ORDERED: CARBACHOL 0.01% INTRA-OCULAR 1.5 ML VIAL ONE (09:03)
[2021-11-25] MEDS ORDERED: BSS (NA/CA/MG/K) BALANCED SALT SOLUTION OPHTH SOLN 15 ML BOTTLE ONE (09:03)
[2021-11-25] MEDS: TROPICAMIDE 1% OPHTH SOLN 15 ML BOTTLE ONE ×3 (09:05→09:15)
[2021-11-25] MEDS: PHENYLEPHRINE 2.5% OPHTH SOLN 15 ML BOTTLE ONE ×3 (09:05→09:15)
[2021-11-25] MEDS: CYCLOPENTOLATE 2% OPHTH SOLN 2 ML BOTTLE ONE ×3 (09:05→09:15)
[2021-11-25] MEDS: CIPROFLOXACIN 0.3% EYE DROPS 5 ML BOTTLE ONE ×3 (09:05→09:15)
[2021-11-25 09:19] VITALS: RESP 16
[2021-11-25] MEDS ORDERED: MIDAZOLAM HCL 2 MG/2 ML SINGLE DOSE VIAL ONE (10:20)
[2021-11-25 11:18] VITALS: TEMP 97.8
[2021-11-25 11:45] VITALS: BP 106/53; PULSE 68
== END 2021-11-25 11:50 | disposition home or self-care (01) ==
LOC: FASU 08:37
PROVIDERS: ATTEND Ophthalmology
PROC: 08RJ3JZ Replacement of Right Lens with Synthetic Substitute, Percutaneous Approach (ICD-10-PCS; principal; 2021-11-25 10:26)
DX: H26.8 Other specified cataract (principal); H21.541 Posterior synechiae (iris), right eye
CPT/HCPCS: 66982; V2632

== ENCOUNTER 2022-06-02 06:28 | Day surgery (SDC) | payer OTHER ==
[2022-05-27 12:20] VITALS: BMI 54.8
[2022-06-02] MEDS: CIPROFLOXACIN 0.3% EYE DROPS 5 ML BOTTLE ONE ×3 (06:55→07:05)
[2022-06-02] MEDS: TROPICAMIDE 1% OPHTH SOLN 15 ML BOTTLE ONE ×3 (06:55→07:05)
[2022-06-02] MEDS: CYCLOPENTOLATE 2% OPHTH SOLN 2 ML BOTTLE ONE ×3 (06:55→07:05)
[2022-06-02] MEDS: PHENYLEPHRINE 2.5% OPTHALMIC DROP 2ML BOTTLE ONE ×3 (06:55→07:05)
[2022-06-02] MEDS ORDERED: SUCCINYLCHOLINE CHLORIDE 200 MG/10 ML SYRINGE ONE (07:13)
[2022-06-02] MEDS ORDERED: ONDANSETRON 4 MG/2 ML VIAL ONE (07:14)
[2022-06-02] MEDS ORDERED: MIDAZOLAM HCL 2 MG/2 ML SINGLE DOSE VIAL ONE (07:14)
[2022-06-02] MEDS ORDERED: LIDOCAINE HCL/PF 1% SDV 5ML VIAL ONE (07:18)
[2022-06-02] MEDS ORDERED: EPINEPHrine/PF 1 MG/1 ML (1:1,000) AMPULE ONE (07:18)
[2022-06-02] MEDS ORDERED: ACETYLCHOLINE 1:100 INTRA-OCUL 20 MG/2 ML KIT ONE (07:18)
[2022-06-02] MEDS ORDERED: TETRACAINE 0.5% OPHTH SOLN 2 ML BOTTLE ONE (07:18)
[2022-06-02] MEDS ORDERED: PHENYLEPHRINE/KETOROLAC 4 ML VIAL IO ONE (07:18)
[2022-06-02] MEDS ORDERED: TRYPAN BLUE 0.5 ML DISP.SYRIN ONE (07:18)
[2022-06-02] MEDS ORDERED: LIDOCAINE 1% P/F 10 MG/ML VIAL ONE (07:18)
[2022-06-02] MEDS ORDERED: BSS (NA/CA/MG/K) BALANCED SALT SOLUTION OPHTH SOLN 15 ML BOTTLE ONE (07:18)
[2022-06-02] MEDS ORDERED: NEO/POLYMYX B SULF/DEXAMETH OPHTHALMIC 5ML BOTTLE ONE (07:19)
[2022-06-02] MEDS ORDERED: CARBACHOL 0.01% INTRA-OCULAR 1.5 ML VIAL ONE (07:19)
[2022-06-02 08:47] VITALS: TEMP 97.9
[2022-06-02 09:12] VITALS: BP 122/70; PULSE 70; RESP 20
== END 2022-06-02 10:13 | disposition home or self-care (01) ==
LOC: FASU 06:28
PROVIDERS: ATTEND Ophthalmology
PROC: 08RK3JZ Replacement of Left Lens with Synthetic Substitute, Percutaneous Approach (ICD-10-PCS; principal; 2022-06-02 08:12)
DX: H26.8 Other specified cataract (principal)
CPT/HCPCS: 66984; V2632; J1097

== ENCOUNTER → 2024-07-04 | Day surgery (SDC) | payer OTHER | END | disposition home or self-care (01) | LOC: JRADUS-SUR 11:05 | PROVIDERS: ATTEND Internal Medicine | PROC: 0H9T3ZX Drainage of Right Breast, Percutaneous Approach, Diagnostic (ICD-10-PCS; principal; 2024-07-04) | DX: N63.31 Unspecified lump in axillary tail of the right breast (principal) | CPT/HCPCS: 19083; 76642-TC-RT; 76942-TC; 87899; 88305-TC; 88342-TC; A4648 ==